=== PATIENT | male | born 1975 | race Caucasian/White ===

== ENCOUNTER 2019-02-25 17:56 | Emergency (ER) | payer SELFPAY ==
[~2019-02-25] VITALS: Ht 167.6 cm; Wt 77.5 kg
[2019-02-25 18:15] VITALS: Ht 167.6 cm; Wt 77.5 kg
[2019-02-26] MEDS ORDERED: CITA20TA8 GTB (07:10)
[2019-02-26] MEDS ORDERED: LEVE500S8 GTB (07:10)
[2019-02-26] MEDS ORDERED: ATOR10TA65 GTB (07:10)
[2019-02-26] MEDS ORDERED: COU3 GTB (07:10)
[2019-02-26] MEDS ORDERED: METO-407 GTB (07:10)
[2019-02-26] MEDS ORDERED: MIRT15TA5 GTB (07:10)
[2019-02-26] MEDS ORDERED: DEXA2TAB GTB (07:10)
[2019-02-26] MEDS ORDERED: ZOLP10TA GTB (07:10)
[2019-02-26] MEDS ORDERED: SENN-120 GTB (07:10)
== END 2019-02-25 20:29 | disposition left against medical advice (07) ==
LOC: E/R 17:56
DX: Z53.21 Procedure and treatment not carried out due to patient leaving prior to being seen by health care provider (principal)

== ENCOUNTER 2019-02-25 23:42 | Inpatient (IN) | payer OTHER ==
[~2019-02-25] VITALS: Ht 167.6 cm; Wt 77.1 kg
[~2019-02-25 23:42] MED LIST: ATOR10TA65 GTB; CITA20TA8 GTB; COU3 GTB; DEXA2TAB GTB; FAMO20TA18 PO; LEVE500S8 GTB; METO-407 GTB; MIRT15TA5 GTB; NAPR-683 PO; SENN-120 GTB; ZOLP10TA GTB
[2019-02-26] MEDS ORDERED: LACTATED RINGER'S 1,000 ML IV STA (01:10)
[2019-02-26] MEDS ORDERED: CEFTRIAXONE 1 GM/50 ML (PMX) 50 ML IVPB ONE (03:00)
--- NOTE | 2019-02-26 03:21 | ERD ---
ER Documentation Chief Complaint Chief Complaint BIB R903. BLOOD IN URINE, RED SPOTS ANTERIOR UPPER CHEST X 3 DAYS HPI 43-year-old man brought in by EMS for hematuria x1 day, patient has a history of stroke with resulting aphasia and uses warfarin daily. He denies back or flank pain, no fevers or chills, no chest pain or shortness of breath. Patient denies history of hematuria. ROS All systems reviewed and are negative except as per history of present illness. Allergies Allergies: Coded Allergies: No Known Drug Allergies (Verified Allergy, Unknown, 01/23/14) PMhx/Soc Hypertension, stroke anticoagulated with warfarin, aphasia History of Surgery: Yes (APPENDECTOMY, PNEUMECTOMY) Hx Neurological Disorder: Yes (STROKE (JUN 2018)) Hx Respiratory Disorders: No Hx Cardiac Disorders: Yes (valve replacement 2009) Hx Psychiatric Problems: No Hx Miscellaneous Medical Probl: No Hx Alcohol Use: No Hx Substance Use: No Hx Tobacco Use: No Smoking Status: Never smoker FmHx Family History: No diabetes Physical Exam Vitals Vital Signs Date Temp Pulse Resp B/P (MAP) Pulse Ox O2 O2 Flow FiO2 Time Delivery Rate 02/25/19 97.0 62 18 147/101 98 23:47 (116) Physical Exam Const: Well-developed well-nourished man, no apparent distress, afebrile Resp: Clear to auscultation bilaterally Cardio: Regular rate and rhythm, no murmurs Abd: Soft, non tender, non distended. No guarding, no masses Skin: Mild diffuse petechiae over the anterior upper chest, no pustules, no target lesions, no hematomas, no ecchymosis Ext: No cyanosis, or edema, calves symmetrical Neur: Patient is nonverbal, moving all extremities, no focal deficits or facial asymmetry Psych: Normal Mood and Affect Result Diagram: 02/26/19 0123 02/26/19 0123 Results 24 hrs Laboratory Tests Test 02/26/19 01:22 02/26/19 01:23 02/26/19 01:24 Prothrombin Time Pending Prothrombin Time Ratio 7.8 INR International Pending Normalized Ratio Activated Partial Thromboplast Pending Time White Blood Count 10.7 10^3/ul Red Blood Count 4.70 10^6/ul Hemoglobin 13.4 g/dl Hematocrit 41.9 % Mean Corpuscular Volume 89.1 fl Mean Corpuscular Hemoglobin 28.5 pg Mean Corpuscular 32.0 g/dl Hemoglobin Concent Red Cell Distribution Width 15.2 % Platelet Count 233 10^3/UL Mean Platelet Volume 9.8 fl Immature Granulocytes % 1.700 % Neutrophils % 72.7 % Lymphocytes % 15.3 % Monocytes % 9.7 % Eosinophils % 0.3 % Basophils % 0.3 % Nucleated Red Blood Cells % 0.0 /100WBC Immature Granulocytes # 0.180 10^3/ul Neutrophils # 7.8 10^3/ul Lymphocytes # 1.6 10^3/ul Monocytes # 1.0 10^3/ul Eosinophils # 0.0 10^3/ul Basophils # 0.0 10^3/ul Nucleated Red Blood Cells # 0.0 10^3/ul Sodium Level 137 mmol/L Potassium Level 4.2 mmol/L Chloride Level 102 mmol/L Carbon Dioxide Level 31 mmol/L Anion Gap 4 Blood Urea Nitrogen 23 mg/dl Creatinine 0.59 mg/dl Est Glomerular Filtrat > 60 mL/min Rate mL/min Glucose Level 93 mg/dl Calcium Level 8.5 mg/dl Total Bilirubin 0.6 mg/dl Direct Bilirubin 0.00 mg/dl Indirect Bilirubin 0.6 mg/dl Aspartate Amino 38 IU/L Transf (AST/SGOT) Alanine 86 IU/L Aminotransferase (ALT/SGPT) Alkaline Phosphatase 77 IU/L Total Protein 6.5 g/dl Albumin 3.3 g/dl Globulin 3.20 g/dl Albumin/Globulin Ratio 1.03 Lipase 118 U/L Urine Color SIGRID Urine Clarity CLOUDY Urine pH 7.0 Urine Specific [place] 1.019 Urine Ketones NEGATIVE mg/dL Urine Nitrite NEGATIVE mg/dL Urine Bilirubin NEGATIVE mg/dL Urine Urobilinogen NEGATIVE mg/dL Urine Leukocyte Esterase NEGATIVE Meghana/ul Urine Microscopic RBC > 182 /HPF Urine Microscopic WBC 48 /HPF Urine Hemoglobin 3+ mg/dL Urine Glucose NEGATIVE mg/dL Urine Total Protein 2+ mg/dl Current Medications Medications Dose Sig/Maria E Start Time Status Last (Trade) Ordered Route PRN Stop Time Admin Dose Reason Admin Lactated 1,000 ml @ Q1H STAT 02/26/19 DC 02/26/19 Ringer's 1,000 mls/hr IV 01:10 01:24 02/26/19 02:09 Ceftriaxone 50 ml @ ONCE ONCE 02/26/19 Sodium 100 mls/hr IVPB 03:00 02/26/19 03:29 Procedures/MDM IV line was established patient was placed on ekg monitor tech rhythm strip revealed a sinus rhythm at about 80 bpm with upright P and T waves. Patient was afebrile I administered LR IV x1, irrigating Chan catheter was placed and bladder was irrigated copiously, hematuria went from initial bright thick red blood to pink in color CBC was normal, electrolytes revealed dehydration, liver function tests were normal, coagulation profile is pending although I suspect supratherapeutic INR levels. Urinalysis revealed RBCs. I treated the patient with ceftriaxone 1 g IV Patient will be admitted to [facility] for continued medical management and IV antibiotics as well as consultation Departure Diagnosis: Primary Impression: Gross hematuria Additional Impression: Hemorrhagic cystitis Condition: VÍCTOR Guzman MD Feb 26, 2019 03:21
[2019-02-26] MEDS ORDERED: NACL 0.9% 3 ML SYG IV SCH (04:30)
[2019-02-26] MEDS ORDERED: ALBUTEROL/IPRATROPIUM (NEB) 3 ML AMP HHN PRN (04:30)
[2019-02-26] MEDS ORDERED: PHYTONADIONE 10 MG/ML INJ IM ONE (04:30)
[2019-02-26] MEDS ORDERED: ONDANSETRON 4 MG INJ IV PRN (04:30)
[2019-02-26] MEDS: DEXTROSE 5%-0.45% NACL 1,000 ML IV SCH ×2 (04:52→18:07)
[2019-02-26] MEDS: PANTOPRAZOLE 40 MG INJ IV SCH (05:24)
[2019-02-26 06:46] VITALS: BP 134/57; PULSE 61; RESP 18
[2019-02-26] MEDS: morphine 2 MG INJ IV PRN ×2 (06:50→14:12)
--- NOTE | 2019-02-26 07:18 | HP ---
Date/Time of Note Date/Time of Note DATE: 02/26/19 TIME: 07:12 Assessment/Plan VTE Prophylaxis SCD applied (from Nsg): Yes Pharmacological prophylaxis: NA/contraindicated Pharm contraindication: bleeding Lines/Catheters IV Catheter Type (from Nrsg): Saline Lock Urinary Cath still in place: No Assessment/Plan Assessment/Plan 1. Gross hematuria -Patient on Coumadin with INR > 10 -FFP and vitamin K -Bladder irrigation -Urology consult 2. Bleeding around G-tube x1 week -GI consult. Patient is actually scheduled to see Dr. Ro at [place] for EGD 3. CVA in June 2018 -Patient nonverbal. , follows commands "80% of the time" -Supportive care 4. Cardiac valve replacement in 2009, on Coumadin -See #1 and #2 -Cardiology consult. Patient's program management intern is Dr. Andrew 5. Dysphagia status post G-tube: Still functional, but see #2 Result Diagram: 02/26/19 0123 02/26/19 0123 Results 24hrs Laboratory Tests Test 02/26/19 01:22 02/26/19 01:23 02/26/19 01:24 Prothrombin Time 99.7 H Prothrombin Time Ratio 7.8 INR International Normalized Ratio > 10.00 *H Activated Partial Thromboplast Time 118.7 *H White Blood Count 10.7 Red Blood Count 4.70 Hemoglobin 13.4 L Hematocrit 41.9 L Mean Corpuscular Volume 89.1 Mean Corpuscular Hemoglobin 28.5 L Mean Corpuscular Hemoglobin Concent 32.0 Red Cell Distribution Width 15.2 H Platelet Count 233 Mean Platelet Volume 9.8 Immature Granulocytes % 1.700 H Neutrophils % 72.7 Lymphocytes % 15.3 Monocytes % 9.7 Eosinophils % 0.3 Basophils % 0.3 Nucleated Red Blood Cells % 0.0 Immature Granulocytes # 0.180 H Neutrophils # 7.8 H Lymphocytes # 1.6 Monocytes # 1.0 H Eosinophils # 0.0 Basophils # 0.0 Nucleated Red Blood Cells # 0.0 Sodium Level 137 Potassium Level 4.2 Chloride Level 102 Carbon Dioxide Level 31 Anion Gap 4 L Blood Urea Nitrogen 23 H Creatinine 0.59 L Est Glomerular Filtrat Rate mL/min > 60 Glucose Level 93 Calcium Level 8.5 Total Bilirubin 0.6 Direct Bilirubin 0.00 Indirect Bilirubin 0.6 Aspartate Amino Transf (AST/SGOT) 38 Alanine Aminotransferase (ALT/SGPT) 86 H Alkaline Phosphatase 77 Total Protein 6.5 Albumin 3.3 Globulin 3.20 Albumin/Globulin Ratio 1.03 Lipase 118 Urine Color SIGRID Urine Clarity CLOUDY A Urine pH 7.0 Urine Specific [place] 1.019 Urine Ketones NEGATIVE Urine Nitrite NEGATIVE Urine Bilirubin NEGATIVE Urine Urobilinogen NEGATIVE Urine Leukocyte Esterase NEGATIVE Urine Microscopic RBC > 182 H Urine Microscopic WBC 48 H Urine Hemoglobin 3+ H Urine Glucose NEGATIVE Urine Total Protein 2+ H HPI/ROS Admit Date/Time Admit Date/Time Feb 26, 2019 at 03:22 Hx of Present Illness Patient is a 43-year-old male who was nonverbal after stroke in June of last year, history of cardiac valve replacement in 2009 on Coumadin, dysphagia status post G-tube. Patient was brought to the ER for gross hematuria x1 day. is at the bedside who provided all the information. Patient also has been having a bleeding around his G-tube site as well as some greenish output from the G-tube. He is actually scheduled to see Dr. Ro at [place] for EGD. Patient has been on Coumadin since 2009 and his gross hematuria started yesterday. When he presented to the ER, he is found to have an INR > 10. Bladder irrigation has been started. Dr. Andrew he is his program management intern. PMH/Family/Social Past Medical History Medical History: other (see hpi) Medications Current Medications Dextrose/Sodium Chloride 1,000 ml @ 100 mls/hr Q10H IV Last administered on 02/26/19at 04:52; Admin Dose 100 MLS/HR; Start 02/26/19 at 04:19 IV Flush (NS 3 ml) 3 ml PER PROTOCOL IV ; Start 02/26/19 at 04:30 Ondansetron HCl (Zofran Inj) 4 mg Q6H PRN IV NAUSEA/VOMITING; Start 02/26/19 at 04:30 Morphine Sulfate (morphine) 2 mg Q4H PRN IV .SEVERE PAIN 7-10 Last administered on 02/26/19at 06:50; Admin Dose 2 MG; Start 02/26/19 at 04:30 Pantoprazole (Protonix Iv) 40 mg DAILY@06 IV Last administered on 02/26/19at 05:24; Admin Dose 40 MG; Start 02/26/19 at 06:00 Albuterol/ Ipratropium (Duoneb) 3 ml Q2H RESP THERAPY PRN HHN SHORTNESS OF BREATH; Start 02/26/19 at 04:30 Coded Allergies: No Known Drug Allergies (Verified Allergy, Unknown, 01/23/14) Past Surgical History Past Surgical Hx: other (see hpi) Family History Significant Family History: no pertinent family hx Social History Alcohol Use: none Smoking Status: Never smoker Drug Use: none Exam/Review of Systems Vital Signs Vitals Vital Signs Date Temp Pulse Resp B/P (MAP) Pulse Ox O2 O2 Flow FiO2 Time Delivery Rate 02/26/19 54 18 124/77 100 Room Air 05:39 (93) 02/25/19 97.0 23:47 Exam Constitutional: other (no verbal) Head: normocephalic, atraumatic Eyes: PERRL Respiratory: clear to auscultation Cardiovascular: regular rate and rhythm, nl pulses Gastrointestinal: soft, other (gtube) Genitourinary - Male: other (andersen with bloody output) Neurological: other (no verbal) TOI ANGELA MD Feb 26, 2019 07:18
[2019-02-26 07:40] VITALS: BP 117/75; PULSE 60; RESP 16
--- NOTE | 2019-02-26 15:20 | CONS ---
Assessment/Plan Assessment/Plan Hospital Course (Demo Recall) 43-year-old male was brought to the emergency room because of gross hematuria. That started on 02/25/2019. The patient is known to have had heart valve replacement and has been on Coumadin. On admission to the ER his INR was over 10. He also was bleeding around the G-tube. The patient had a stroke in June 2018 and since then he has been a phasic. He does also have dysphagia and has a G-tube. There is no prior history of gross hematuria. No history of kidney stones. And he never had an indwelling Chan catheter. With the continuous bladder irrigation the return is clear. The CT scan showed right periureteral stranding. The patient may be bleeding from the right kidney and blood clots may be causing obstruction in his right ureter. The bleeding is most likely related to his elevated INR since the CT scan did not show any stone or tumor in the kidney. Plan is to continue the bladder irrigation try to hydrate him well and correct the INR to a therapeutic level. Consultation Date/Type/Reason Admit Date/Time Feb 26, 2019 at 03:22 Date of Consultation: Feb 26, 2019 Type of Consult Urology Reason for Consultation Gross hematuria Requesting Provider: MARISELA URBAN Date/Time of Note DATE: 02/26/19 TIME: 15:08 Hx of Present Illness 43-year-old male was brought to the emergency room because of gross hematuria. That started on 02/25/2019. The patient is known to have had heart valve replacement and has been on Coumadin. On admission to the ER his INR was over 10. He also was bleeding around the G-tube. The patient had a stroke in June 2018 and since then he has been a phasic. He does also have dysphagia and has a G-tube. There is no prior history of gross hematuria. No history of kidney stones. And he never had an indwelling Chan catheter. Subjective hx not possible: other (Patient is aphasic but he does understand and his does answer all the questions) Constitutional: no complaints Eyes: no complaints ENT: no complaints Respiratory: no complaints; No shortness of breath Cardiovascular: no complaints; No chest pain Gastrointestinal: no complaints Genitourinary: hematuria Musculoskeletal: no complaints Skin: no complaints Neurologic: other (History of stroke, patient is aphasic) Endocrine: no complaints Lymphatic: no complaints Psychological: no complaints Immunologic: no complaints Past Medical History Medical History: high cholesterol, hypertension, other (History of stroke) Home Meds Reported Medications Atorvastatin Calcium (Atorvastatin Calcium) 10 Mg Tablet, 20 MG GTB DAILY, #30 TAB 02/26/19 Citalopram Hydrobromide* (Citalopram Hydrobromide*) 20 Mg Tablet, 20 MG GTB DAILY, #30 TAB 02/26/19 Sennosides* (Senna Lax*) 8.6 Mg Tablet, 1 TAB GTB DAILY PRN for constipation, TAB 02/26/19 Mirtazapine* (Mirtazapine*) 15 Mg Tablet, 15 MG GTB HS, TAB 02/26/19 Dexamethasone* (Dexamethasone*) 2 Mg Tablet, 2 MG GTB QHS, TAB 02/26/19 Zolpidem Tartrate* (Ambien*) 10 Mg Tablet, 10 MG GTB QHS PRN for INSOMNIA, TAB 02/26/19 Warfarin Sod (Coumadin) 3 Mg Tab, 4 MG GTB DAILY, TAB 02/26/19 Metoprolol Tartrate* (Lopressor*) 100 Mg Tablet, 100 MG GTB DAILY, #60 TAB 02/26/19 Levetiracetam* (Levetiracetam*) 500 Mg/5 Ml Solution, 1000 MG GTB BID, ML 02/26/19 Medications Current Medications Dextrose/Sodium Chloride 1,000 ml @ 100 mls/hr Q10H IV Last administered on 02/26/19at 04:52; Admin Dose 100 MLS/HR; Start 02/26/19 at 04:19 IV Flush (NS 3 ml) 3 ml PER PROTOCOL IV ; Start 02/26/19 at 04:30 Ondansetron HCl (Zofran Inj) 4 mg Q6H PRN IV NAUSEA/VOMITING; Start 02/26/19 at 04:30 Morphine Sulfate (morphine) 2 mg Q4H PRN IV .SEVERE PAIN 7-10 Last administered on 02/26/19at 14:12; Admin Dose 2 MG; Start 02/26/19 at 04:30 Pantoprazole (Protonix Iv) 40 mg DAILY@06 IV Last administered on 02/26/19at 05:24; Admin Dose 40 MG; Start 02/26/19 at 06:00 Albuterol/ Ipratropium (Duoneb) 3 ml Q2H RESP THERAPY PRN HHN SHORTNESS OF BREATH; Start 02/26/19 at 04:30 Allergies: Coded Allergies: No Known Drug Allergies (Verified Allergy, Unknown, 01/23/14) Past Surgical History Past Surgical Hx: other (Heart valve replacement) Social History Alcohol Use: none Smoking Status: Never smoker Exam/Review of Systems Exam Vitals Vital Signs Date Temp Pulse Resp B/P (MAP) Pulse Ox O2 O2 Flow FiO2 Time Delivery Rate 02/26/19 98.6 60 16 117/75 98 07:40 (89) 02/26/19 Room Air 05:39 Intake and Output 02/25/19 02/25/19 02/26/19 1515:00 23:00 07:00 OutputOutput Total 400 ml BalanceBalance -400 ml Constitutional: alert, non-verbal Psych: no complaints Head: normocephalic Eyes: nl conjunctiva ENMT: nl external ears & nose Neck: supple Respiratory: normal air movement; No wheezing Cardiovascular: No jugular venous distention (JVD) Gastrointestinal: soft Genitourinary - Male: nl penis, nl scrotum, other (Has an indwelling three-way Chan catheter with continuous bladder irrigation) Musculoskeletal: nl extremities to inspection Extremities: No calf tenderness Neurological: nl mental status Skin: nl turgor Lymph: nl lymph nodes Results Result Diagram: 02/26/19 0123 02/26/19 0123 Results 24hrs Laboratory Tests Test 02/26/19 01:22 02/26/19 01:23 02/26/19 01:24 02/26/19 09:57 Prothrombin Time 99.7 H 20.3 #H Prothrombin Time 7.8 1.6 Ratio INR International > 10.00 *H 1.73 Normalized Ratio Activated 118.7 *H 35.8 H Partial Thromboplast Time White Blood Count 10.7 Red Blood Count 4.70 Hemoglobin 13.4 L Hematocrit 41.9 L Mean Corpuscular 89.1 Volume Mean Corpuscular 28.5 L Hemoglobin Mean Corpuscular 32.0 Hemoglobin Concent Red Cell 15.2 H Distribution Width Platelet Count 233 Mean Platelet Volume 9.8 Immature 1.700 H Granulocytes % Neutrophils % 72.7 Lymphocytes % 15.3 Monocytes % 9.7 Eosinophils % 0.3 Basophils % 0.3 Nucleated Red Blood 0.0 Cells % Immature 0.180 H Granulocytes # Neutrophils # 7.8 H Lymphocytes # 1.6 Monocytes # 1.0 H Eosinophils # 0.0 Basophils # 0.0 Nucleated Red Blood 0.0 Cells # Sodium Level 137 Potassium Level 4.2 Chloride Level 102 Carbon Dioxide Level 31 Anion Gap 4 L Blood Urea Nitrogen 23 H Creatinine 0.59 L Est Glomerular > 60 Filtrat Rate mL/min Glucose Level 93 Calcium Level 8.5 Total Bilirubin 0.6 Direct Bilirubin 0.00 Indirect Bilirubin 0.6 Aspartate Amino 38 Transf (AST/SGOT) Alanine 86 H Aminotransferase (AL T/SGPT) Alkaline Phosphatase 77 Total Protein 6.5 Albumin 3.3 Globulin 3.20 Albumin/Globulin 1.03 Ratio Lipase 118 Urine Color SIGRID Urine Clarity CLOUDY A Urine pH 7.0 Urine Specific 1.019 [place] Urine Ketones NEGATIVE Urine Nitrite NEGATIVE Urine Bilirubin NEGATIVE Urine Urobilinogen NEGATIVE Urine Leukocyte NEGATIVE Esterase Urine Microscopic > 182 H RBC Urine Microscopic 48 H WBC Urine Hemoglobin 3+ H Urine Glucose NEGATIVE Urine Total Protein 2+ H Imaging Imaging CT scan of the abdomen and pelvis: 1. Right periureteral stranding without hydronephrosis or appreciated calculus. This could reflect recent passage of a calculus in the appropriate setting. Other inflammatory or infectious process cannot be absolutely excluded. Consider further urologic evaluation as warranted. 2. Hepatomegaly. Medications Medication Current Medications Dextrose/Sodium Chloride 1,000 ml @ 100 mls/hr Q10H IV Last administered on 02/26/19at 04:52; Admin Dose 100 MLS/HR; Start 02/26/19 at 04:19 IV Flush (NS 3 ml) 3 ml PER PROTOCOL IV ; Start 02/26/19 at 04:30 Ondansetron HCl (Zofran Inj) 4 mg Q6H PRN IV NAUSEA/VOMITING; Start 02/26/19 at 04:30 Morphine Sulfate (morphine) 2 mg Q4H PRN IV .SEVERE PAIN 7-10 Last administered on 02/26/19at 14:12; Admin Dose 2 MG; Start 02/26/19 at 04:30 Pantoprazole (Protonix Iv) 40 mg DAILY@06 IV Last administered on 02/26/19at 05:24; Admin Dose 40 MG; Start 02/26/19 at 06:00 Albuterol/ Ipratropium (Duoneb) 3 ml Q2H RESP THERAPY PRN HHN SHORTNESS OF BREATH; Start 02/26/19 at 04:30 SEDA GLOVER MD Feb 26, 2019 15:19
--- NOTE | 2019-02-26 15:28 | CONS ---
Assessment/Plan Assessment/Plan Hospital Course (Demo Recall) Summary Assessment and Plan: Assessment: Bleeding and subjective greenish discharge at gastrostomy tube site Hematuria H/o CVA in June 2018 -dysphasia and dysphagia requiring G-tube Cardiac valve replacement in 2009 -on Coumadin Coagulopathy - INR on admission >10.0 Plan: S/p FFP transfusion - INR now 1.73 Monitor labs Will consider g-tube exchange with EGD - will need cardiac clearance prior to procedure No evidence of infection will start TF FiberSource 30ml/hr to goal rte 50ml/hr Patient seen in collaboration with Dr. Ro CC: MYRTLE RO MD ; Consultation Date/Type/Reason Admit Date/Time Feb 26, 2019 at 03:22 Date of Consultation: Feb 26, 2019 Type of Consult GI Reason for Consultation Bleeding at gastrostomy tube site - reported greenish discharge Date/Time of Note DATE: 02/26/19 TIME: 15:08 Hx of Present Illness This is 43-year-old male with past medical history of valve replacement 2009 on Coumadin, CVA in June of last year leading to dysphasia and dysphagia status post gastrostomy tube placement. Who presented to the hospital with complaints area bleeding around gastrostomy tube site as well as greenish discharge. Patient was evaluated in our office with plan for upper endoscopy scheduled for April. On admission patient's INR was over 10 he is status post 2 units of FFP with repeat INR of 1.73 there is mild normocytic anemia with hemoglobin 13.4 normal WBCs patient is afebrile with heart rate noted to be in the 50s to 60s and stable blood pressure. A CT abdomen pelvis without contrast was ordered noting right periureteral stranding without hydronephrosis or appreciated calculus. This could reflect recent passage of a calculus in the proper setting or other inflammatory or infectious process cannot be actually excluded, hepatomegaly is noted at time evaluation ostomy site appears without infection there is no signs of drainage or redness there is no further episodes of bleeding. There is some related tissue around ostomy site given severe coagulopathy could be reason for bleeding. At time of ealuation ostomy site in without evidence of infection, s/p gastric lavage without evidence of purulent fluid or blood. Subjective hx not possible: pt non-verbal Past Medical History Home Meds Reported Medications Atorvastatin Calcium (Atorvastatin Calcium) 10 Mg Tablet, 20 MG GTB DAILY, #30 TAB 02/26/19 Citalopram Hydrobromide* (Citalopram Hydrobromide*) 20 Mg Tablet, 20 MG GTB DAILY, #30 TAB 02/26/19 Sennosides* (Senna Lax*) 8.6 Mg Tablet, 1 TAB GTB DAILY PRN for constipation, TAB 02/26/19 Mirtazapine* (Mirtazapine*) 15 Mg Tablet, 15 MG GTB HS, TAB 02/26/19 Dexamethasone* (Dexamethasone*) 2 Mg Tablet, 2 MG GTB QHS, TAB 02/26/19 Zolpidem Tartrate* (Ambien*) 10 Mg Tablet, 10 MG GTB QHS PRN for INSOMNIA, TAB 02/26/19 Warfarin Sod (Coumadin) 3 Mg Tab, 4 MG GTB DAILY, TAB 02/26/19 Metoprolol Tartrate* (Lopressor*) 100 Mg Tablet, 100 MG GTB DAILY, #60 TAB 02/26/19 Levetiracetam* (Levetiracetam*) 500 Mg/5 Ml Solution, 1000 MG GTB BID, ML 02/26/19 Medications Current Medications Dextrose/Sodium Chloride 1,000 ml @ 100 mls/hr Q10H IV Last administered on 02/26/19at 04:52; Admin Dose 100 MLS/HR; Start 02/26/19 at 04:19 IV Flush (NS 3 ml) 3 ml PER PROTOCOL IV ; Start 02/26/19 at 04:30 Ondansetron HCl (Zofran Inj) 4 mg Q6H PRN IV NAUSEA/VOMITING; Start 02/26/19 at 04:30 Morphine Sulfate (morphine) 2 mg Q4H PRN IV .SEVERE PAIN 7-10 Last administered on 02/26/19at 14:12; Admin Dose 2 MG; Start 02/26/19 at 04:30 Pantoprazole (Protonix Iv) 40 mg DAILY@06 IV Last administered on 02/26/19at 05:24; Admin Dose 40 MG; Start 02/26/19 at 06:00 Albuterol/ Ipratropium (Duoneb) 3 ml Q2H RESP THERAPY PRN HHN SHORTNESS OF BREATH; Start 02/26/19 at 04:30 Allergies: Coded Allergies: No Known Drug Allergies (Verified Allergy, Unknown, 6/17/14) Social History Smoking Status: Never smoker Exam/Review of Systems Exam Vitals Vital Signs Date Temp Pulse Resp B/P (MAP) Pulse Ox O2 O2 Flow FiO2 Time Delivery Rate 02/26/19 98.6 60 16 117/75 98 07:40 (89) 02/26/19 Room Air 05:39 Intake and Output 02/25/19 02/25/19 02/26/19 1515:00 23:00 07:00 OutputOutput Total 400 ml BalanceBalance -400 ml Exam PHYSICAL EXAMINATION: GENERAL: Alert, aphasic, in no acute distress SKIN: No lesions HEAD: Normocephalic, atraumatic, no tenderness. EYES: Pupils equal reactive to light and accommodation, no discharge. EARS/NOSE AND THROAT: Ears normal, nose normal NECK: Supple, no masses CHEST: Inspection within normal limits. CARDIOVASCULAR: Heart: Regular rate and rhythm RESPIRATORY: Lungs clear to auscultation GASTROINTESTINAL AND LIVER: Abdomen: Soft, non tenderness, g-tube, non- distended, no hernias, no masses, Hepatomegaly,, no rebound tenderness, normoactive bowel sounds. Rectal: Deferred. EXTREMITIES: No cyanosis, clubbing or edema. Results Result Diagram: 02/26/19 0123 02/26/19 0123 Results 24hrs Laboratory Tests Test 02/26/19 01:22 02/26/19 01:23 02/26/19 01:24 02/26/19 09:57 Prothrombin Time 99.7 H 20.3 #H Prothrombin Time 7.8 1.6 Ratio INR International > 10.00 *H 1.73 Normalized Ratio Activated 118.7 *H 35.8 H Partial Thromboplast Time White Blood Count 10.7 Red Blood Count 4.70 Hemoglobin 13.4 L Hematocrit 41.9 L Mean Corpuscular 89.1 Volume Mean Corpuscular 28.5 L Hemoglobin Mean Corpuscular 32.0 Hemoglobin Concent Red Cell 15.2 H Distribution Width Platelet Count 233 Mean Platelet Volume 9.8 Immature 1.700 H Granulocytes % Neutrophils % 72.7 Lymphocytes % 15.3 Monocytes % 9.7 Eosinophils % 0.3 Basophils % 0.3 Nucleated Red Blood 0.0 Cells % Immature 0.180 H Granulocytes # Neutrophils # 7.8 H Lymphocytes # 1.6 Monocytes # 1.0 H Eosinophils # 0.0 Basophils # 0.0 Nucleated Red Blood 0.0 Cells # Sodium Level 137 Potassium Level 4.2 Chloride Level 102 Carbon Dioxide Level 31 Anion Gap 4 L Blood Urea Nitrogen 23 H Creatinine 0.59 L Est Glomerular > 60 Filtrat Rate mL/min Glucose Level 93 Calcium Level 8.5 Total Bilirubin 0.6 Direct Bilirubin 0.00 Indirect Bilirubin 0.6 Aspartate Amino 38 Transf (AST/SGOT) Alanine 86 H Aminotransferase (AL T/SGPT) Alkaline Phosphatase 77 Total Protein 6.5 Albumin 3.3 Globulin 3.20 Albumin/Globulin 1.03 Ratio Lipase 118 Urine Color SIGRID Urine Clarity CLOUDY A Urine pH 7.0 Urine Specific 1.019 [place] Urine Ketones NEGATIVE Urine Nitrite NEGATIVE Urine Bilirubin NEGATIVE Urine Urobilinogen NEGATIVE Urine Leukocyte NEGATIVE Esterase Urine Microscopic > 182 H RBC Urine Microscopic 48 H WBC Urine Hemoglobin 3+ H Urine Glucose NEGATIVE Urine Total Protein 2+ H Medications Medication Current Medications Dextrose/Sodium Chloride 1,000 ml @ 100 mls/hr Q10H IV Last administered on 02/26/19at 04:52; Admin Dose 100 MLS/HR; Start 02/26/19 at 04:19 IV Flush (NS 3 ml) 3 ml PER PROTOCOL IV ; Start 02/26/19 at 04:30 Ondansetron HCl (Zofran Inj) 4 mg Q6H PRN IV NAUSEA/VOMITING; Start 02/26/19 at 04:30 Morphine Sulfate (morphine) 2 mg Q4H PRN IV .SEVERE PAIN 7-10 Last administered on 02/26/19at 14:12; Admin Dose 2 MG; Start 02/26/19 at 04:30 Pantoprazole (Protonix Iv) 40 mg DAILY@06 IV Last administered on 02/26/19at 05:24; Admin Dose 40 MG; Start 02/26/19 at 06:00 Albuterol/ Ipratropium (Duoneb) 3 ml Q2H RESP THERAPY PRN HHN SHORTNESS OF BREATH; Start 02/26/19 at 04:30 DEANDRE PHILLIPS Feb 26, 2019 15:19
--- NOTE | 2019-02-26 17:59 | PN ---
Date/Time of Note Date/Time of Note DATE: 02/26/19 TIME: 17:46 Assessment/Plan VTE Prophylaxis Risk score (from Ns)>0 risk: 1 SCD applied (from Ns): Yes Pharmacological prophylaxis: warfarin tx Lines/Catheters [facility] [place] Assessment/Plan Hospital Course 1. Gross hematuria likely secondary to supratherapeutic INR -Patient on Coumadin with INR > 10 -Status post FFP and vitamin K, INR now< 2 -Continue bladder irrigation -Urology consult appreciated, etiology believed to be secondary to elevated INR, recommendation is to continue bladder irrigation 2. Bleeding around G-tube x1 week -GI consult appreciated, Patient is actually scheduled to see Dr. 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 Andrew ([facility] is covering) 3. CVA in June 2018 -Etiology appears to be secondary to history of cardiac valve repair and noncompliance with Coumadin -Patient nonverbal. , follows commands "80% of the time" -Supportive care 4. Cardiac valve replacement in 2009, on Coumadin -Cardiology consult obtained -Resume Coumadin starting tomorrow morning due to risk of further embolic event 5. History of seizures -Keppra IV 6. Headache -Toradol IV Prophylaxis: SCDs DC planning: Continue bladder irrigation, follow-up on urology, GI and cardiology recommendations Result Diagram: 02/26/19 0123 02/26/19 0123 Results 24hrs Laboratory Tests Test 02/26/19 01:22 02/26/19 01:23 02/26/19 01:24 02/26/19 09:57 Prothrombin Time 99.7 H 20.3 #H Prothrombin Time 7.8 1.6 Ratio INR International > 10.00 *H 1.73 Normalized Ratio Activated 118.7 *H 35.8 H Partial Thromboplast Time White Blood Count 10.7 Red Blood Count 4.70 Hemoglobin 13.4 L Hematocrit 41.9 L Mean Corpuscular 89.1 Volume Mean Corpuscular 28.5 L Hemoglobin Mean Corpuscular 32.0 Hemoglobin Concent Red Cell 15.2 H Distribution Width Platelet Count 233 Mean Platelet Volume 9.8 Immature 1.700 H Granulocytes % Neutrophils % 72.7 Lymphocytes % 15.3 Monocytes % 9.7 Eosinophils % 0.3 Basophils % 0.3 Nucleated Red Blood 0.0 Cells % Immature 0.180 H Granulocytes # Neutrophils # 7.8 H Lymphocytes # 1.6 Monocytes # 1.0 H Eosinophils # 0.0 Basophils # 0.0 Nucleated Red Blood 0.0 Cells # Sodium Level 137 Potassium Level 4.2 Chloride Level 102 Carbon Dioxide Level 31 Anion Gap 4 L Blood Urea Nitrogen 23 H Creatinine 0.59 L Est Glomerular > 60 Filtrat Rate mL/min Glucose Level 93 Calcium Level 8.5 Total Bilirubin 0.6 Direct Bilirubin 0.00 Indirect Bilirubin 0.6 Aspartate Amino 38 Transf (AST/SGOT) Alanine 86 H Aminotransferase (AL T/SGPT) Alkaline Phosphatase 77 Total Protein 6.5 Albumin 3.3 Globulin 3.20 Albumin/Globulin 1.03 Ratio Lipase 118 Urine Color SIGRID Urine Clarity CLOUDY A Urine pH 7.0 Urine Specific 1.019 [place] Urine Ketones NEGATIVE Urine Nitrite NEGATIVE Urine Bilirubin NEGATIVE Urine Urobilinogen NEGATIVE Urine Leukocyte NEGATIVE Esterase Urine Microscopic > 182 H RBC Urine Microscopic 48 H WBC Urine Hemoglobin 3+ H Urine Glucose NEGATIVE Urine Total Protein 2+ H Subjective 24 Hr Interval Summary Subjective hx not possible: pt non-verbal Exam/Review of Systems Exam Vitals Vital Signs Date Temp Pulse Resp B/P (MAP) Pulse Ox O2 O2 Flow FiO2 Time Delivery Rate 02/26/19 98.6 60 16 117/75 98 07:40 (89) 02/26/19 Room Air 05:39 Intake and Output 02/25/19 02/25/19 02/26/19 1515:00 23:00 07:00 OutputOutput Total 400 ml BalanceBalance -400 ml Constitutional: non-verbal Respiratory: clear to auscultation Cardiovascular: regular rate and rhythm Gastrointestinal: soft; No distended Musculoskeletal: nl extremities to inspection Results Results 24hrs Laboratory Tests Test 02/26/19 01:22 02/26/19 01:23 02/26/19 01:24 02/26/19 09:57 Prothrombin Time 99.7 H 20.3 #H Prothrombin Time 7.8 1.6 Ratio INR International > 10.00 *H 1.73 Normalized Ratio Activated 118.7 *H 35.8 H Partial Thromboplast Time White Blood Count 10.7 Red Blood Count 4.70 Hemoglobin 13.4 L Hematocrit 41.9 L Mean Corpuscular 89.1 Volume Mean Corpuscular 28.5 L Hemoglobin Mean Corpuscular 32.0 Hemoglobin Concent Red Cell 15.2 H Distribution Width Platelet Count 233 Mean Platelet Volume 9.8 Immature 1.700 H Granulocytes % Neutrophils % 72.7 Lymphocytes % 15.3 Monocytes % 9.7 Eosinophils % 0.3 Basophils % 0.3 Nucleated Red Blood 0.0 Cells % Immature 0.180 H Granulocytes # Neutrophils # 7.8 H Lymphocytes # 1.6 Monocytes # 1.0 H Eosinophils # 0.0 Basophils # 0.0 Nucleated Red Blood 0.0 Cells # Sodium Level 137 Potassium Level 4.2 Chloride Level 102 Carbon Dioxide Level 31 Anion Gap 4 L Blood Urea Nitrogen 23 H Creatinine 0.59 L Est Glomerular > 60 Filtrat Rate mL/min Glucose Level 93 Calcium Level 8.5 Total Bilirubin 0.6 Direct Bilirubin 0.00 Indirect Bilirubin 0.6 Aspartate Amino 38 Transf (AST/SGOT) Alanine 86 H Aminotransferase (AL T/SGPT) Alkaline Phosphatase 77 Total Protein 6.5 Albumin 3.3 Globulin 3.20 Albumin/Globulin 1.03 Ratio Lipase 118 Urine Color SIGRID Urine Clarity CLOUDY A Urine pH 7.0 Urine Specific 1.019 [place] Urine Ketones NEGATIVE Urine Nitrite NEGATIVE Urine Bilirubin NEGATIVE Urine Urobilinogen NEGATIVE Urine Leukocyte NEGATIVE Esterase Urine Microscopic > 182 H RBC Urine Microscopic 48 H WBC Urine Hemoglobin 3+ H Urine Glucose NEGATIVE Urine Total Protein 2+ H Medications Medication Current Medications Dextrose/Sodium Chloride 1,000 ml @ 100 mls/hr Q10H IV Last administered on 02/26/19at 04:52; Admin Dose 100 MLS/HR; Start 02/26/19 at 04:19 IV Flush (NS 3 ml) 3 ml PER PROTOCOL IV ; Start 02/26/19 at 04:30 Ondansetron HCl (Zofran Inj) 4 mg Q6H PRN IV NAUSEA/VOMITING; Start 02/26/19 at 04:30 Morphine Sulfate (morphine) 2 mg Q4H PRN IV .SEVERE PAIN 7-10 Last administered on 02/26/19at 14:12; Admin Dose 2 MG; Start 02/26/19 at 04:30 Pantoprazole (Protonix Iv) 40 mg DAILY@06 IV Last administered on 02/26/19at 05:24; Admin Dose 40 MG; Start 02/26/19 at 06:00 Albuterol/ Ipratropium (Duoneb) 3 ml Q2H RESP THERAPY PRN HHN SHORTNESS OF BREATH; Start 02/26/19 at 04:30 Levetiracetam 100 ml @ 400 mls/hr Q12 IVPB ; Start 02/26/19 at 21:00 MARISELA URBAN Feb 26, 2019 17:57
[2019-02-26] MEDS: KETOROLAC 15 MG INJ IV PRN ×2 (18:06→22:03)
[2019-02-26] MEDS: WARFARIN 2 MG TAB GTB SCH (18:43)
[2019-02-26 18:58] VITALS: BP 102/59; PULSE 69; RESP 18
[2019-02-26] MEDS ORDERED: HYDROCODONE/APAP (5/325) TAB PO PRN (20:00)
[2019-02-26] MEDS ORDERED: SUMATRIPTAN 6 MG/0.5 ML INJ SC ONE (20:00)
[2019-02-26] MEDS: LEVETIRACETAM 1000 MG (PMX) 100 ML IVPB SCH (20:14)
[2019-02-26] MEDS ORDERED: HYDROmorphONE 1 MG/ML SYG IV ONE (23:30)
[2019-02-26] MEDS ORDERED: MELATONIN 5 MG TABLET GTB PRN (23:30)
[2019-02-27] MEDS: DEXTROSE 5%-0.45% NACL 1,000 ML IV SCH ×3 (00:19→15:42)
[2019-02-27] MEDS ORDERED: HYDROmorphONE 1 MG/ML SYG IV PRN (01:00)
[2019-02-27] MEDS: morphine 2 MG INJ IV PRN ×3 (04:42→17:15)
[2019-02-27] MEDS: PANTOPRAZOLE 40 MG INJ IV SCH (05:16)
[2019-02-27 07:31] VITALS: BP 119/58; PULSE 72; RESP 19
[2019-02-27] MEDS: KETOROLAC 15 MG INJ IV PRN ×2 (08:08→18:52)
[2019-02-27] MEDS: LEVETIRACETAM 1000 MG (PMX) 100 ML IVPB SCH ×2 (08:08→21:42)
--- NOTE | 2019-02-27 08:37 | CONS ---
Consult Date/Type/Reason Admit Date/Time Feb 26, 2019 at 03:22 Initial Consult Date 02/26/19 Type of Consultation: Urology Reason for Consultation Gross hematuria Requesting Provider: MARISELA URBAN Date/Time of Note DATE: 02/27/19 TIME: 08:35 Subjective Patient is sleeping Objective Vitals Vital Signs Date Temp Pulse Resp B/P (MAP) Pulse Ox O2 O2 Flow FiO2 Time Delivery Rate 02/27/19 97.2 72 19 119/58 98 07:31 (78) 02/26/19 Room Air 18:58 Intake and Output 02/26/19 02/26/19 02/27/19 1515:00 23:00 07:00 IntakeIntake Total 1100 ml 966 ml OutputOutput Total 4550 ml 4600 ml BalanceBalance -3450 ml -3634 ml Exam Chan catheter is draining clear urine with the irrigation at the very slow rate. Results/Medications Result Diagram: 02/27/19 0424 02/27/19 0424 Results 24 hrs Laboratory Tests Test 02/26/19 09:57 02/27/19 04:24 Prothrombin Time 20.3 #H 13.8 # Prothrombin Time Ratio 1.6 1.1 INR International Normalized Ratio 1.73 1.05 Activated Partial Thromboplast Time 35.8 H White Blood Count 7.8 # Red Blood Count 4.68 L Hemoglobin 13.4 L Hematocrit 41.9 L Mean Corpuscular Volume 89.5 Mean Corpuscular Hemoglobin 28.6 L Mean Corpuscular Hemoglobin Concent 32.0 Red Cell Distribution Width 15.3 H Platelet Count 210 Mean Platelet Volume 9.9 Immature Granulocytes % 1.000 H Neutrophils % 67.4 Lymphocytes % 21.0 Monocytes % 8.8 Eosinophils % 1.4 Basophils % 0.4 Nucleated Red Blood Cells % 0.0 Immature Granulocytes # 0.080 H Neutrophils # 5.2 Lymphocytes # 1.6 Monocytes # 0.7 Eosinophils # 0.1 Basophils # 0.0 Nucleated Red Blood Cells # 0.0 Sodium Level 137 Potassium Level 3.4 L Chloride Level 104 Carbon Dioxide Level 27 Anion Gap 6 Blood Urea Nitrogen 15 Creatinine 0.55 L Est Glomerular Filtrat Rate mL/min > 60 Glucose Level 95 Calcium Level 8.2 L Phosphorus Level 4.5 Magnesium Level 2.1 Total Bilirubin 0.8 Direct Bilirubin 0.00 Indirect Bilirubin 0.8 Aspartate Amino Transf (AST/SGOT) 33 Alanine Aminotransferase (ALT/SGPT) 65 Alkaline Phosphatase 90 Total Protein 6.1 Albumin 3.3 Globulin 2.80 Albumin/Globulin Ratio 1.17 Home Meds Reported Medications Atorvastatin Calcium (Atorvastatin Calcium) 10 Mg Tablet, 20 MG GTB DAILY, #30 TAB 02/26/19 Citalopram Hydrobromide* (Citalopram Hydrobromide*) 20 Mg Tablet, 20 MG GTB D AILY, #30 TAB 02/26/19 Sennosides* (Senna Lax*) 8.6 Mg Tablet, 1 TAB GTB DAILY PRN for constipation, TAB 02/26/19 Mirtazapine* (Mirtazapine*) 15 Mg Tablet, 15 MG GTB HS, TAB 02/26/19 Dexamethasone* (Dexamethasone*) 2 Mg Tablet, 2 MG GTB QHS, TAB 02/26/19 Zolpidem Tartrate* (Ambien*) 10 Mg Tablet, 10 MG GTB QHS PRN for INSOMNIA, TAB 02/26/19 Warfarin Sod (Coumadin) 3 Mg Tab, 4 MG GTB DAILY, TAB 02/26/19 Metoprolol Tartrate* (Lopressor*) 100 Mg Tablet, 100 MG GTB DAILY, #60 TAB 02/26/19 Levetiracetam* (Levetiracetam*) 500 Mg/5 Ml Solution, 1000 MG GTB BID, ML 02/26/19 Medications Current Medications Dextrose/Sodium Chloride 1,000 ml @ 100 mls/hr Q10H IV Last administered on 02/27/19at 05:16; Admin Dose 100 MLS/HR; Start 02/26/19 at 04:19 IV Flush (NS 3 ml) 3 ml PER PROTOCOL IV ; Start 02/26/19 at 04:30 Ondansetron HCl (Zofran Inj) 4 mg Q6H PRN IV NAUSEA/VOMITING; Start 02/26/19 at 04:30 Morphine Sulfate (morphine) 2 mg Q4H PRN IV .SEVERE PAIN 7-10 Last administered on 02/27/19at 04:42; Admin Dose 2 MG; Start 02/26/19 at 04:30 Pantoprazole (Protonix Iv) 40 mg DAILY@06 IV Last administered on 02/27/19at 05:16; Admin Dose 40 MG; Start 02/26/19 at 06:00 Albuterol/ Ipratropium (Duoneb) 3 ml Q2H RESP THERAPY PRN HHN SHORTNESS OF BREATH; Start 02/26/19 at 04:30 Levetiracetam 100 ml @ 400 mls/hr Q12 IVPB Last administered on 02/27/19at 08:08; Admin Dose 400 MLS/HR; Start 02/26/19 at 21:00 Ketorolac Tromethamine (Toradol) 15 mg Q6H PRN IV PAIN Last administered on 02/27/19at 08:08; Admin Dose 15 MG; Start 02/26/19 at 18:00; Stop 03/01/19 at 17:59 Warfarin Sodium (Coumadin) 4 mg 1700 GTB Last administered on 02/26/19at 18:43; Admin Dose 4 MG; Start 02/26/19 at 18:30 Melatonin (Melatonin) 5 mg HS PRN GTB INSOM; Start 02/26/19 at 23:30 Hydromorphone HCl (Dilaudid) 1 mg ONCE PRN IV PAIN; Start 02/27/19 at 01:00 Assessment/Plan Hospital Course (Demo Recall) 43-year-old male was brought to the emergency room because of gross hematuria. That started on 02/25/2019. The patient is known to have had heart valve replacement and has been on Coumadin. On admission to the ER his INR was over 10. He also was bleeding around the G-tube. The patient had a stroke in June 2018 and since then he has been a phasic. He does also have dysphagia and has a G-tube. There is no prior history of gross hematuria. No history of kidney stones. And he never had an indwelling Chan catheter. The irrigation is at a very low rate and the return is clear his PT INR are now normal. We will stop the irrigation and if the urine remains clear then discont inue the irrigation and tomorrow morning remove the Chan catheter. SEDA GLOVER MD Feb 27, 2019 08:37
--- NOTE | 2019-02-27 10:21 | PN ---
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 Ro Subjective: Course reviewed with nursing staff Patient interviewed and examined All labs, imaging and other results reviewed The patient resting in bed, tolerating TF well. No c/o n/v- no further discharge or bleeding at g-tube site Exam PHYSICAL EXAMINATION: GENERAL: Alert, aphasic, in no acute distress SKIN: No lesions HEAD: Normocephalic, atraumatic, no tenderness. EYES: Pupils equal reactive to light and accommodation, no discharge. EARS/NOSE AND THROAT: Ears normal, nose normal NECK: Supple, no masses CHEST: Inspection within normal limits. CARDIOVASCULAR: Heart: Regular rate and rhythm RESPIRATORY: Lungs clear to auscultation GASTROINTESTINAL AND LIVER: Abdomen: Soft, non tenderness, g-tube, non- distended, no hernias, no masses, Hepatomegaly,, no rebound tenderness, normoactive bowel sounds. Rectal: Deferred. EXTREMITIES: No cyanosis, clubbing or edema. Result Diagram: 02/27/19 0424 02/27/19 0424 Results 24hrs Laboratory Tests Test 02/27/19 04:24 White Blood Count 7.8 # Red Blood Count 4.68 L Hemoglobin 13.4 L Hematocrit 41.9 L Mean Corpuscular Volume 89.5 Mean Corpuscular Hemoglobin 28.6 L Mean Corpuscular Hemoglobin Concent 32.0 Red Cell Distribution Width 15.3 H Platelet Count 210 Mean Platelet Volume 9.9 Immature Granulocytes % 1.000 H Neutrophils % 67.4 Lymphocytes % 21.0 Monocytes % 8.8 Eosinophils % 1.4 Basophils % 0.4 Nucleated Red Blood Cells % 0.0 Immature Granulocytes # 0.080 H Neutrophils # 5.2 Lymphocytes # 1.6 Monocytes # 0.7 Eosinophils # 0.1 Basophils # 0.0 Nucleated Red Blood Cells # 0.0 Prothrombin Time 13.8 # Prothrombin Time Ratio 1.1 INR International Normalized Ratio 1.05 Sodium Level 137 Potassium Level 3.4 L Chloride Level 104 Carbon Dioxide Level 27 Anion Gap 6 Blood Urea Nitrogen 15 Creatinine 0.55 L Est Glomerular Filtrat Rate mL/min > 60 Glucose Level 95 Calcium Level 8.2 L Phosphorus Level 4.5 Magnesium Level 2.1 Total Bilirubin 0.8 Direct Bilirubin 0.00 Indirect Bilirubin 0.8 Aspartate Amino Transf (AST/SGOT) 33 Alanine Aminotransferase (ALT/SGPT) 65 Alkaline Phosphatase 90 Total Protein 6.1 Albumin 3.3 Globulin 2.80 Albumin/Globulin Ratio 1.17 Exam/Review of Systems Exam Vitals Vital Signs Date Temp Pulse Resp B/P (MAP) Pulse Ox O2 O2 Flow FiO2 Time Delivery Rate 02/27/19 97.2 72 19 119/58 98 07:31 (78) 02/26/19 Room Air 18:58 Intake and Output 02/26/19 02/26/19 02/27/19 1515:00 23:00 07:00 IntakeIntake Total 1100 ml 966 ml OutputOutput Total 4550 ml 4600 ml BalanceBalance -3450 ml -3634 ml Results Results 24hrs Laboratory Tests Test 02/27/19 04:24 White Blood Count 7.8 # Red Blood Count 4.68 L Hemoglobin 13.4 L Hematocrit 41.9 L Mean Corpuscular Volume 89.5 Mean Corpuscular Hemoglobin 28.6 L Mean Corpuscular Hemoglobin Concent 32.0 Red Cell Distribution Width 15.3 H Platelet Count 210 Mean Platelet Volume 9.9 Immature Granulocytes % 1.000 H Neutrophils % 67.4 Lymphocytes % 21.0 Monocytes % 8.8 Eosinophils % 1.4 Basophils % 0.4 Nucleated Red Blood Cells % 0.0 Immature Granulocytes # 0.080 H Neutrophils # 5.2 Lymphocytes # 1.6 Monocytes # 0.7 Eosinophils # 0.1 Basophils # 0.0 Nucleated Red Blood Cells # 0.0 Prothrombin Time 13.8 # Prothrombin Time Ratio 1.1 INR International Normalized Ratio 1.05 Sodium Level 137 Potassium Level 3.4 L Chloride Level 104 Carbon Dioxide Level 27 Anion Gap 6 Blood Urea Nitrogen 15 Creatinine 0.55 L Est Glomerular Filtrat Rate mL/min > 60 Glucose Level 95 Calcium Level 8.2 L Phosphorus Level 4.5 Magnesium Level 2.1 Total Bilirubin 0.8 Direct Bilirubin 0.00 Indirect Bilirubin 0.8 Aspartate Amino Transf (AST/SGOT) 33 Alanine Aminotransferase (ALT/SGPT) 65 Alkaline Phosphatase 90 Total Protein 6.1 Albumin 3.3 Globulin 2.80 Albumin/Globulin Ratio 1.17 Medications Medication Current Medications Dextrose/Sodium Chloride 1,000 ml @ 100 mls/hr Q10H IV Last administered on 02/27/19at 05:16; Admin Dose 100 MLS/HR; Start 02/26/19 at 04:19 IV Flush (NS 3 ml) 3 ml PER PROTOCOL IV ; Start 02/26/19 at 04:30 Ondansetron HCl (Zofran Inj) 4 mg Q6H PRN IV NAUSEA/VOMITING; Start 02/26/19 at 04:30 Morphine Sulfate (morphine) 2 mg Q4H PRN IV .SEVERE PAIN 7-10 Last administered on 02/27/19at 04:42; Admin Dose 2 MG; Start 02/26/19 at 04:30 Pantoprazole (Protonix Iv) 40 mg DAILY@06 IV Last administered on 02/27/19at 05:16; Admin Dose 40 MG; Start 02/26/19 at 06:00 Albuterol/ Ipratropium (Duoneb) 3 ml Q2H RESP THERAPY PRN HHN SHORTNESS OF BREATH; Start 02/26/19 at 04:30 Levetiracetam 100 ml @ 400 mls/hr Q12 IVPB Last administered on 02/27/19 08:08; Admin Dose 400 MLS/HR; Start 02/26/19 at 21:00 Ketorolac Tromethamine (Toradol) 15 mg Q6H PRN IV PAIN Last administered on 02/27/19at 08:08; Admin Dose 15 MG; Start 02/26/19 at 18:00; Stop 03/01/19 at 17:59 Warfarin Sodium (Coumadin) 4 mg 1700 GTB Last administered on 02/26/19at 18:43; Admin Dose 4 MG; Start 02/26/19 at 18:30 Melatonin (Melatonin) 5 mg HS PRN GTB INSOM; Start 02/26/19 at 23:30 Hydromorphone HCl (Dilaudid) 1 mg ONCE PRN IV PAIN; Start 02/27/19 at 01:00 DEANDRE PHILLIPS Feb 27, 2019 10:21
--- NOTE | 2019-02-27 11:58 | PN ---
Date/Time of Note Date/Time of Note DATE: 02/27/19 TIME: 11:57 Assessment/Plan VTE Prophylaxis Risk score (from Nsg)>0 risk: 1 SCD applied (from Nsg): Yes Pharmacological prophylaxis: heparin Lines/Catheters IV Catheter Type (from Nrsg): Saline Lock Urinary Cath still in place: Yes Reason Cath still needed: urinary retention Assessment/Plan Hospital Course Alert well appearing Expressive aphasia RRR, metallic s21 Flat neck veins Breahting comfortably G tube 1. Gross hematuria likely secondary to supratherapeutic INR -Patient on Coumadin with INR > 10 -Status post FFP and vitamin K, INR now< 2 -Continue bladder irrigation -Urology consult appreciated, etiology believed to be secondary to elevated INR, recommendation is to continue bladder irrigation 2. Bleeding around G-tube x1 week -GI consult appreciated, Patient is actually scheduled to see Dr. Ro at [facility] for EGD -GI has requested cardiology clearance for possible PEG exchange, have consulted patient's primary software tools build engineer Dr. Andrew ([facility] is covering) 3. CVA in June 2018 -Etiology appears to be secondary to history of cardiac valve repair and noncompliance with Coumadin -Patient nonverbal. , follows commands "80% of the time" -Supportive care 4. Cardiac valve replacement in 2009, on Coumadin -Cardiology consult obtained -Resume Coumadin starting tomorrow morning due to risk of further embolic event 5. History of seizures -Keppra IV 6. Headache -Toradol IV Prophylaxis: SCDs DC planning: Continue bladder irrigation, follow-up on urology, GI and cardiolo gy recommendations Result Diagram: 02/27/19 0424 02/27/19 0424 Results 24hrs Laboratory Tests Test 02/27/19 04:24 White Blood Count 7.8 # Red Blood Count 4.68 L Hemoglobin 13.4 L Hematocrit 41.9 L Mean Corpuscular Volume 89.5 Mean Corpuscular Hemoglobin 28.6 L Mean Corpuscular Hemoglobin Concent 32.0 Red Cell Distribution Width 15.3 H Platelet Count 210 Mean Platelet Volume 9.9 Immature Granulocytes % 1.000 H Neutrophils % 67.4 Lymphocytes % 21.0 Monocytes % 8.8 Eosinophils % 1.4 Basophils % 0.4 Nucleated Red Blood Cells % 0.0 Immature Granulocytes # 0.080 H Neutrophils # 5.2 Lymphocytes # 1.6 Monocytes # 0.7 Eosinophils # 0.1 Basophils # 0.0 Nucleated Red Blood Cells # 0.0 Prothrombin Time 13.8 # Prothrombin Time Ratio 1.1 INR International Normalized Ratio 1.05 Sodium Level 137 Potassium Level 3.4 L Chloride Level 104 Carbon Dioxide Level 27 Anion Gap 6 Blood Urea Nitrogen 15 Creatinine 0.55 L Est Glomerular Filtrat Rate mL/min > 60 Glucose Level 95 Calcium Level 8.2 L Phosphorus Level 4.5 Magnesium Level 2.1 Total Bilirubin 0.8 Direct Bilirubin 0.00 Indirect Bilirubin 0.8 Aspartate Amino Transf (AST/SGOT) 33 Alanine Aminotransferase (ALT/SGPT) 65 Alkaline Phosphatase 90 Total Protein 6.1 Albumin 3.3 Globulin 2.80 Albumin/Globulin Ratio 1.17 Subjective 24 Hr Interval Summary Free Text/Dictation Doing well no compalints Exam/Review of Systems Exam Vitals Vital Signs Date Temp Pulse Resp B/P (MAP) Pulse Ox O2 O2 Flow FiO2 Time Delivery Rate 02/27/19 97.2 72 19 119/58 98 07:31 (78) 02/26/19 Room Air 18:58 Intake and Output 02/26/19 02/26/19 02/27/19 1515:00 23:00 07:00 IntakeIntake Total 1100 ml 966 ml OutputOutput Total 4550 ml 4600 ml BalanceBalance -3450 ml -3634 ml Results Results 24hrs Laboratory Tests Test 02/27/19 04:24 White Blood Count 7.8 # Red Blood Count 4.68 L Hemoglobin 13.4 L Hematocrit 41.9 L Mean Corpuscular Volume 89.5 Mean Corpuscular Hemoglobin 28.6 L Mean Corpuscular Hemoglobin Concent 32.0 Red Cell Distribution Width 15.3 H Platelet Count 210 Mean Platelet Volume 9.9 Immature Granulocytes % 1.000 H Neutrophils % 67.4 Lymphocytes % 21.0 Monocytes % 8.8 Eosinophils % 1.4 Basophils % 0.4 Nucleated Red Blood Cells % 0.0 Immature Granulocytes # 0.080 H Neutrophils # 5.2 Lymphocytes # 1.6 Monocytes # 0.7 Eosinophils # 0.1 Basophils # 0.0 Nucleated Red Blood Cells # 0.0 Prothrombin Time 13.8 # Prothrombin Time Ratio 1.1 INR International Normalized Ratio 1.05 Sodium Level 137 Potassium Level 3.4 L Chloride Level 104 Carbon Dioxide Level 27 Anion Gap 6 Blood Urea Nitrogen 15 Creatinine 0.55 L Est Glomerular Filtrat Rate mL/min > 60 Glucose Level 95 Calcium Level 8.2 L Phosphorus Level 4.5 Magnesium Level 2.1 Total Bilirubin 0.8 Direct Bilirubin 0.00 Indirect Bilirubin 0.8 Aspartate Amino Transf (AST/SGOT) 33 Alanine Aminotransferase (ALT/SGPT) 65 Alkaline Phosphatase 90 Total Protein 6.1 Albumin 3.3 Globulin 2.80 Albumin/Globulin Ratio 1.17 Medications Medication Current Medications Dextrose/Sodium Chloride 1,000 ml @ 100 mls/hr Q10H IV Last administered on 02/27/19at 05:16; Admin Dose 100 MLS/HR; Start 02/26/19 at 04:19 IV Flush (NS 3 ml) 3 ml PER PROTOCOL IV ; Start 02/26/19 at 04:30 Ondansetron HCl (Zofran Inj) 4 mg Q6H PRN IV NAUSEA/VOMITING; Start 02/26/19 at 04:30 Morphine Sulfate (morphine) 2 mg Q4H PRN IV .SEVERE PAIN 7-10 Last administered on 02/27/19at 11:31; Admin Dose 2 MG; Start 02/26/19 at 04:30 Pantoprazole (Protonix Iv) 40 mg DAILY@06 IV Last administered on 02/27/19at 05:16; Admin Dose 40 MG; Start 02/26/19 at 06:00 Albuterol/ Ipratropium (Duoneb) 3 ml Q2H RESP THERAPY PRN HHN SHORTNESS OF BREATH; Start 02/26/19 at 04:30 Levetiracetam 100 ml @ 400 mls/hr Q12 IVPB Last administered on 02/27/19at 08:08; Admin Dose 400 MLS/HR; Start 02/26/19 at 21:00 Ketorolac Tromethamine (Toradol) 15 mg Q6H PRN IV PAIN Last administered on 02/27/19 08:08; Admin Dose 15 MG; Start 02/26/19 at 18:00; Stop 03/01/19 at 17:59 Warfarin Sodium (Coumadin) 4 mg 1700 GTB Last administered on 02/26/19at 18:43; Admin Dose 4 MG; Start 02/26/19 at 18:30 Melatonin (Melatonin) 5 mg HS PRN GTB INSOM; Start 02/26/19 at 23:30 TOM SOLIMAN MD Feb 27, 2019 11:58
[2019-02-27 14:48] VITALS: BP 124/62; PULSE 84; RESP 20
[2019-02-27] MEDS: WARFARIN 2 MG TAB GTB SCH (17:15)
--- NOTE | 2019-02-27 18:53 | CONS ---
Assessment/Plan Assessment/Plan Hospital Course (Demo Recall) 1. Hematuria and diffuse bleeding secondary to coagulopathy 2. Severe coagulopathy probably secondary to Coumadin overdose 3. History of mechanical valve replacement 4. History of CVA 5. Mild pulmonary congestion 6. PEG malfunction 7. Cardia vascular pre-evaluation for PEG replacement Recommendations: Patient should be kept off on anticoagulation for minimal amount of time given his history of valve replacement mechanical valve as well as stroke. We will start him on heparin drip for now. However not his INR is subtherapeutic is probably the best time to do procedures such as PEG placement and EGD for him. No other further cardiac work-up would be indicated prior to the placement of PEG and EGD however patient will be started on heparin to be stopped/hold 4 hours prior to the procedure and to be resumed as soon as possible after the procedure. Check daily PT/INR and adjust as needed. Adjustment as per internal medicine Echocardiogram will be ordered as well. At this point patient has no clinical signs of congestive heart failure has lying flat and O2 sat is normal. We will monitor on diuretic will be given as needed basis only. Baseline EKG will be obtained Outpatient follow-up with his regular lead designer Thank you for his referral. We will continue following with you MARIANNE AKHTAR MD [facility] Consultation Date/Type/Reason Admit Date/Time Feb 26, 2019 at 03:22 Date of Consultation: Feb 27, 2019 Type of Consult Cardiology Reason for Consultation cv preop Requesting Provider: MARISELA URBAN Date/Time of Note DATE: 02/27/19 TIME: 18:48 Hx of Present Illness Interventional cardiology consultation note Chief complaint: Diffuse bleeding Reason for consult: Cardia vascular pre-evaluation, status post valve replacement History of present illness: Thank you for this referral. History was informed the patient's mostly from discussion with staff and physician review of the chart. This is an 40 minutes 43-year-old gentleman with history of valvular heart disease status post mechanical valve replacement many years ago about 10 years ago history of CVA who came in because of diffuse bleeding and hematuria. Patient was noted to have INR level of more than 10. He is anticoagulation has been reversed now his INR is normalized and his bleeding has stopped. He is getting his EGD and PEG replacement tomorrow but was kindly asked to evaluate and do appreciate the cardia vascular preop evaluation. Patient is nonverbal since his stroke. Allergies: No known drug allergies Medications were reviewed as per medical reconciliation sheet Family history: No early coronary artery disease Social history: Is lives with family. Non-smoker Past medical history: Valvular heart disease status post valve replacement with a mechanical valve replacement unclear mitral or aortic at this point. According to the it has been very difficult to control his INR level History of CVA 2018 with subsequent dysphagia status post PEG placement Review of system: Patient denies all others except for above-mentioned Past Medical History Home Meds Reported Medications Atorvastatin Calcium (Atorvastatin Calcium) 10 Mg Tablet, 20 MG GTB DAILY, #30 TAB 02/26/19 Citalopram Hydrobromide* (Citalopram Hydrobromide*) 20 Mg Tablet, 20 MG GTB DAILY, #30 TAB 02/26/19 Sennosides* (Senna Lax*) 8.6 Mg Tablet, 1 TAB GTB DAILY PRN for constipation, TAB 02/26/19 Mirtazapine* (Mirtazapine*) 15 Mg Tablet, 15 MG GTB HS, TAB 02/26/19 Dexamethasone* (Dexamethasone*) 2 Mg Tablet, 2 MG GTB QHS, TAB 02/26/19 Zolpidem Tartrate* (Ambien*) 10 Mg Tablet, 10 MG GTB QHS PRN for INSOMNIA, TAB 02/26/19 Warfarin Sod (Coumadin) 3 Mg Tab, 4 MG GTB DAILY, TAB 02/26/19 Metoprolol Tartrate* (Lopressor*) 100 Mg Tablet, 100 MG GTB DAILY, #60 TAB 02/26/19 Levetiracetam* (Levetiracetam*) 500 Mg/5 Ml Solution, 1000 MG GTB BID, ML 02/26/19 Medications Current Medications Dextrose/Sodium Chloride 1,000 ml @ 100 mls/hr Q10H IV Last administered on 02/27/19at 15:42; Admin Dose 100 MLS/HR; Start 02/26/19 at 04:19 IV Flush (NS 3 ml) 3 ml PER PROTOCOL IV ; Start 02/26/19 at 04:30 Ondansetron HCl (Zofran Inj) 4 mg Q6H PRN IV NAUSEA/VOMITING; Start 02/26/19 at 04:30 Morphine Sulfate (morphine) 2 mg Q4H PRN IV .SEVERE PAIN 7-10 Last administered on 02/27/19at 17:15; Admin Dose 2 MG; Start 02/26/19 at 04:30 Pantoprazole (Protonix Iv) 40 mg DAILY@06 IV Last administered on 02/27/19at 05:16; Admin Dose 40 MG; Start 02/26/19 at 06:00 Albuterol/ Ipratropium (Duoneb) 3 ml Q2H RESP THERAPY PRN HHN SHORTNESS OF B REATH; Start 02/26/19 at 04:30 Levetiracetam 100 ml @ 400 mls/hr Q12 IVPB Last administered on 02/27/19at 08:08; Admin Dose 400 MLS/HR; Start 02/26/19 at 21:00 Ketorolac Tromethamine (Toradol) 15 mg Q6H PRN IV PAIN Last administered on 02/27/19at 08:08; Admin Dose 15 MG; Start 02/26/19 at 18:00; Stop 03/01/19 at 17:59 Warfarin Sodium (Coumadin) 4 mg 1700 GTB Last administered on 02/27/19at 17:15; Admin Dose 4 MG; Start 02/26/19 at 18:30 Melatonin (Melatonin) 5 mg HS PRN GTB INSOM; Start 02/26/19 at 23:30 Allergies: Coded Allergies: No Known Drug Allergies (Verified Allergy, Unknown, 01/23/14) Past Surgical History Past Surgical Hx: other (see hpi) Social History Alcohol Use: none Smoking Status: Never smoker Drug Use: none Exam/Review of Systems Vital Signs Vitals Vital Signs Date Temp Pulse Resp B/P (MAP) Pulse Ox O2 O2 Flow FiO2 Time Delivery Rate 02/27/19 98.2 84 20 124/62 97 14:48 (82) 02/26/19 Room Air 18:58 Intake and Output 02/26/19 02/26/19 02/27/19 1515:00 23:00 07:00 IntakeIntake Total 1100 ml 966 ml OutputOutput Total 4550 ml 4600 ml BalanceBalance -3450 ml -3634 ml Exam Exam General: no acute distress HEENT: NC/AT. pupils are equal. round. NECK: no stridor. CV: RRR.+ Chemical click systolic murmur; no gallop or rubs. PULM: no wheezing or rhonchi. GI: SOFT, NT, ND, no rebound or guarding Extremity: trace B/L LE edema. no clubbing. neuro: awake and alert, with aphasia and mild right-sided weakness Psych: calm and pleasant rectal: deferred : There is post Chan catheter in place Chest x-ray showed Mild cardiomegaly and pulmonary venous congestion Labs Result Diagram: 02/27/19 0424 02/27/19 0424 Results 24hrs Laboratory Tests Test 02/27/19 04:24 White Blood Count 7.8 # Red Blood Count 4.68 L Hemoglobin 13.4 L Hematocrit 41.9 L Mean Corpuscular Volume 89.5 Mean Corpuscular Hemoglobin 28.6 L Mean Corpuscular Hemoglobin Concent 32.0 Red Cell Distribution Width 15.3 H Platelet Count 210 Mean Platelet Volume 9.9 Immature Granulocytes % 1.000 H Neutrophils % 67.4 Lymphocytes % 21.0 Monocytes % 8.8 Eosinophils % 1.4 Basophils % 0.4 Nucleated Red Blood Cells % 0.0 Immature Granulocytes # 0.080 H Neutrophils # 5.2 Lymphocytes # 1.6 Monocytes # 0.7 Eosinophils # 0.1 Basophils # 0.0 Nucleated Red Blood Cells # 0.0 Prothrombin Time 13.8 # Prothrombin Time Ratio 1.1 INR International Normalized Ratio 1.05 Sodium Level 137 Potassium Level 3.4 L Chloride Level 104 Carbon Dioxide Level 27 Anion Gap 6 Blood Urea Nitrogen 15 Creatinine 0.55 L Est Glomerular Filtrat Rate mL/min > 60 Glucose Level 95 Calcium Level 8.2 L Phosphorus Level 4.5 Magnesium Level 2.1 Total Bilirubin 0.8 Direct Bilirubin 0.00 Indirect Bilirubin 0.8 Aspartate Amino Transf (AST/SGOT) 33 Alanine Aminotransferase (ALT/SGPT) 65 Alkaline Phosphatase 90 Total Protein 6.1 Albumin 3.3 Globulin 2.80 Albumin/Globulin Ratio 1.17 Medications Medications Current Medications Dextrose/Sodium Chloride 1,000 ml @ 100 mls/hr Q10H IV Last administered on 02/27/19at 15:42; Admin Dose 100 MLS/HR; Start 02/26/19 at 04:19 IV Flush (NS 3 ml) 3 ml PER PROTOCOL IV ; Start 02/26/19 at 04:30 Ondansetron HCl (Zofran Inj) 4 mg Q6H PRN IV NAUSEA/VOMITING; Start 02/26/19 at 04:30 Morphine Sulfate (morphine) 2 mg Q4H PRN IV .SEVERE PAIN 7-10 Last administered on 02/27/19at 17:15; Admin Dose 2 MG; Start 02/26/19 at 04:30 Pantoprazole (Protonix Iv) 40 mg DAILY@06 IV Last administered on 02/27/19 05:16; Admin Dose 40 MG; Start 02/26/19 at 06:00 Albuterol/ Ipratropium (Duoneb) 3 ml Q2H RESP THERAPY PRN HHN SHORTNESS OF BREATH; Start 02/26/19 at 04:30 Levetiracetam 100 ml @ 400 mls/hr Q12 IVPB Last administered on 02/27/19 08:08; Admin Dose 400 MLS/HR; Start 02/26/19 at 21:00 Ketorolac Tromethamine (Toradol) 15 mg Q6H PRN IV PAIN Last administered on 02/27/19 08:08; Admin Dose 15 MG; Start 02/26/19 at 18:00; Stop 03/01/19 at 17:59 Warfarin Sodium (Coumadin) 4 mg 1700 GTB Last administered on 02/27/19 17:15; Admin Dose 4 MG; Start 02/26/19 at 18:30 Melatonin (Melatonin) 5 mg HS PRN GTB INSOM; Start 02/26/19 at 23:30 MARIANNE AKHTAR MD Feb 27, 2019 18:53
[2019-02-27] MEDS ORDERED: HEPARIN 1000 UNITS/ML 10 ML INJ IV ONE (19:00)
[2019-02-27] MEDS ORDERED: HEPARIN 1000 UNITS/ML 10 ML INJ IV PRN ×2 (19:00)
[2019-02-27 19:38] VITALS: BP 120/87; PULSE 77; RESP 18
[2019-02-27] MEDS: ACETAMINOPHEN 325 MG TAB PO PRN (21:43)
[2019-02-28] VITALS (13 sets, daily range): BP systolic 90–114; BP diastolic 53–80; PULSE 72–89; RESP 10–21
[2019-02-28] MEDS: HEPARIN 25000 UNITS/250 ML 250 ML IV SCH ×2 (01:35→23:30)
[2019-02-28] MEDS: ACETAMINOPHEN 325 MG TAB PO PRN ×2 (04:44→18:57)
[2019-02-28] MEDS: PANTOPRAZOLE 40 MG INJ IV SCH (04:50)
[2019-02-28] MEDS: DEXTROSE 5%-0.45% NACL 1,000 ML IV SCH ×2 (04:51→21:27)
[2019-02-28] MEDS: KETOROLAC 15 MG INJ IV PRN ×2 (08:32→21:24)
[2019-02-28] MEDS: LEVETIRACETAM 1000 MG (PMX) 100 ML IVPB SCH (09:56)
--- NOTE | 2019-02-28 12:28 | RADRPT ---
Echocardiogram Report Patient Name: MIRYAM HILLPatient ID: [id number] : 1975 (43y 11m)Study Date: 02/28/2019 7:05:35 AM Gender: MAccession #: [id number] Tech: Jasmine Jones RDCS Location: [id number] Ref.Physician: MARIANNE MICHAEL Height(Cm): BSA: Weight(Kg): Quality: AdequateOrder Physician: MARIANNE MICHAEL Account #: Procedures: Echocardiographic Report: Transthoracic echocardiogram with complete 2D, M-Mode, and doppler examination. Indications: s/p aortic valve replacement. Measurements: 2D/M Mode Doppler Measurement Value Normal Range Measurement Value Normal Range LVIDd 2D 4.9 [ 4.2 - 5.8 ] cm AV Mean Brad 1.1 [ 70.0 - 90.0 ] cm/sec LVIDs 2D 2.4 [ 2.5 - 4.0 ] cm AV Mean PG 6.0 [ 2.0 - 4.0 ] mmHg LVPWd 2D 0.9 [ 0.6 - 1.0 ] cm AV VTI 25.8 cm IVSd 2D 1.0 [ 0.6 - 1.0 ] cm LVOT Mean Brad 0.5 [ 60.0 - 80.0 ] cm/sec AoR Diam 2D 2.5 [ 2.6 - 3.4 ] cm LVOT Mean PG 1.0 [ 1.0 - 3.0 ] mmHg EDV 2D 114.0 [ 62.0 - 150.0 ] ml LVOT Peak Brad 0.8 [ 70.0 - 110.0 ] cm/sec ESV 2D 20.2 [ 21.0 - 61.0 ] ml LVOT Peak PG 2.0 [ 2.0 - 6.0 ] mmHg EF 2D 82.3 [ 52.0 - 72.0 ] percent LVOT VTI 13.0 [ 20.0 - 30.0 ] cm LA Dimen 2D 2.9 [ 3.0 - 4.0 ] cm MV E Peak Brad 0.5 [ 60.0 - 130.0 ] cm/sec MV A Peak Brad 0.7 [ 100.0 - 120.0 ] cm/sec MV E/A 0.7 [ 0.8 - 1.5 ] ratio MV Decel Time 169 [ 104 - 258 ] msec Lat E` Brad 0.1 [ 10.0 - 15.0 ] cm/sec Lateral E/E` 5.0 [ 1.0 - 2.0 ] ratio Med E` Brad 0.1 cm/sec MV E/A 0.7 [ 0.8 - 1.5 ] ratio Findings: Left Ventricle: Normal left ventricular systolic function. Normal left ventricular cavity size. Normal left ventricular wall thickness. Ejection fraction is visually estimated at 55 %. Tissue Doppler/Mitral Doppler indices are consistent with impaired relaxation (Stage I diastolic dysfunction). Right Ventricle: Normal right ventricular size. Normal right ventricular systolic function. Left Atrium: The left atrium is normal in size. Right Atrium: The right atrium is normal in size. Mitral Valve: Normal appearance and function of the mitral valve with trace physiologic regurgitation. Aortic Valve: Aortic valve not well visualized. Aortic Valve Mechanical Prosthesis. Aortic valve Max velocity 1.51 m/sec. Max PG 9.00 mmHg. Mean PG 5.00 mmHg. Trace aortic valve regurgitation. Tricuspid Valve: Normal appearance and function of the tricuspid valve with trace physiologic regurgitation. Normal right ventricular systolic pressure. Pulmonic Valve: Normal pulmonic valve appearance. Pericardium: Normal pericardium with no significant pericardial effusion. Aorta: Normal aortic root. IVC: Normal size and normal respiratory collapse consistent with normal right atrial pressure. Conclusions: Normal left ventricular systolic function. Normal left ventricular cavity size. Normal left ventricular wall thickness. Ejection fraction is visually estimated at 55 %. Tissue Doppler/Mitral Doppler indices are consistent with impaired relaxation (Stage I diastolic dysfunction). Normal appearance and function of the mitral valve with trace physiologic regurgitation. Normal appearance and function of the tricuspid valve with trace physiologic regurgitation. Normal right ventricular systolic pressure. Aortic valve not well visualized. Aortic Valve Mechanical Prosthesis. Aortic valve Max velocity 1.51 m/sec. Max PG 9.00 mmHg. Mean PG 5.00 mmHg. Trace aortic valve regurgitation. Electronically Signed By: Marianne Michael 2019-02-28 12:27:38 PDT
--- NOTE | 2019-02-28 12:45 | CONS ---
Consult Date/Type/Reason Admit Date/Time Feb 26, 2019 at 03:22 Initial Consult Date 02/27/19 Type of Consultation: CV Requesting Provider: MARISELA URBAN Date/Time of Note DATE: 02/28/19 TIME: 12:43 Subjective CV follow up S D/W staff and no active bleeding no cp no PND orthopnea pt is awaiting PEG O: General: no acute distress HEENT: NC/AT. pupils are equal. round. NECK: no stridor. CV: RRR.+ Chemical click systolic murmur; no gallop or rubs. PULM: no wheezing or rhonchi. GI: SOFT, NT, ND, no rebound or guarding Extremity: trace B/L LE edema. no clubbing. neuro: awake and alert, with aphasia and mild right-sided weakness Psych: calm and pleasant rectal: deferred : There is post Chan catheter in place Chest x-ray showed Mild cardiomegaly and pulmonary venous congestion echo Reviewed Objective Vitals Vital Signs Date Temp Pulse Resp B/P (MAP) Pulse Ox O2 O2 Flow FiO2 Time Delivery Rate 02/28/19 83 20 99/59 (72) 97 03:15 02/28/19 99.1 02:39 02/27/19 Room Air 19:38 Intake and Output 02/27/19 02/27/19 02/28/19 1515:00 23:00 07:00 IntakeIntake Total 100 ml 1300 ml 867 ml OutputOutput Total 2000 ml 900 ml BalanceBalance 100 ml -700 ml -33 ml Results/Medications Result Diagram: 02/27/19 1921 02/27/19 0424 Results 24 hrs Laboratory Tests Test 02/27/19 19:21 02/28/19 04:31 02/28/19 07:22 02/28/19 08:34 White Blood Count 9.0 Red Blood Count 4.92 Hemoglobin 14.2 Hematocrit 45.4 Mean Corpuscular 92.3 Volume Mean Corpuscular 28.9 L Hemoglobin Mean Corpuscular 31.3 L Hemoglobin Concen t Red Cell 15.2 H Distribution Width Platelet Count 194 Mean Platelet 10.0 Volume Immature 0.900 H Granulocytes % Neutrophils % 69.3 Lymphocytes % 18.3 Monocytes % 9.8 Eosinophils % 1.3 Basophils % 0.4 Nucleated Red 0.0 Blood Cells % Immature 0.080 H Granulocytes # Neutrophils # 6.2 Lymphocytes # 1.7 Monocytes # 0.9 Eosinophils # 0.1 Basophils # 0.0 Nucleated Red 0.0 Blood Cells # Prothrombin Time 13.8 16.1 H Prothrombin Time 1.1 1.3 Ratio INR International 1.05 1.28 Normalized Ratio Activated 30.8 > 180.0 *H Partial Thrombopl ast Time Lab Scanned BLOOD TRANSFUSIO Report N Home Meds Reported Medications Atorvastatin Calcium (Atorvastatin Calcium) 10 Mg Tablet, 20 MG GTB DAILY, #30 TAB 02/26/19 Citalopram Hydrobromide* (Citalopram Hydrobromide*) 20 Mg Tablet, 20 MG GTB DAILY, #30 TAB 02/26/19 Sennosides* (Senna Lax*) 8.6 Mg Tablet, 1 TAB GTB DAILY PRN for constipation, TAB 02/26/19 Mirtazapine* (Mirtazapine*) 15 Mg Tablet, 15 MG GTB HS, TAB 02/26/19 Dexamethasone* (Dexamethasone*) 2 Mg Tablet, 2 MG GTB QHS, TAB 02/26/19 Zolpidem Tartrate* (Ambien*) 10 Mg Tablet, 10 MG GTB QHS PRN for INSOMNIA, TAB 02/26/19 Warfarin Sod (Coumadin) 3 Mg Tab, 4 MG GTB DAILY, TAB 02/26/19 Metoprolol Tartrate* (Lopressor*) 100 Mg Tablet, 100 MG GTB DAILY, #60 TAB 02/26/19 Levetiracetam* (Levetiracetam*) 500 Mg/5 Ml Solution, 1000 MG GTB BID, ML 02/26/19 Medications Current Medications Dextrose/Sodium Chloride 1,000 ml @ 100 mls/hr Q10H IV Last administered on 02/28/19at 04:51; Admin Dose 100 MLS/HR; Start 02/26/19 at 04:19 IV Flush (NS 3 ml) 3 ml PER PROTOCOL IV ; Start 02/26/19 at 04:30 Ondansetron HCl (Zofran Inj) 4 mg Q6H PRN IV NAUSEA/VOMITING; Start 02/26/19 at 04:30 Morphine Sulfate (morphine) 2 mg Q4H PRN IV .SEVERE PAIN 7-10 Last administered on 02/27/19at 17:15; Admin Dose 2 MG; Start 02/26/19 at 04:30 Pantoprazole (Protonix Iv) 40 mg DAILY@06 IV Last administered on 02/28/19 04:50; Admin Dose 40 MG; Start 02/26/19 at 06:00 Albuterol/ Ipratropium (Duoneb) 3 ml Q2H RESP THERAPY PRN HHN SHORTNESS OF BREATH; Start 02/26/19 at 04:30 Levetiracetam 100 ml @ 400 mls/hr Q12 IVPB Last administered on 02/28/19 09:56; Admin Dose 400 MLS/HR; Start 02/26/19 at 21:00 Ketorolac Tromethamine (Toradol) 15 mg Q6H PRN IV PAIN Last administered on 02/28/19 08:32; Admin Dose 15 MG; Start 02/26/19 at 18:00; Stop 03/01/19 at 17:59 Warfarin Sodium (Coumadin) 4 mg 1700 GTB Last administered on 02/27/19 17:15; Admin Dose 4 MG; Start 02/26/19 at 18:30 Melatonin (Melatonin) 5 mg HS PRN GTB INSOM Last administered on 02/27/19 23:07; Admin Dose 5 MG; Start 02/26/19 at 23:30 Heparin Sodium (Porcine) (Heparin (1000 Units/ml)) 5,800 unit PER PROTOCOL PRN IV aPTT<47 Last administered on 02/28/19 02:03; Admin Dose 5,800 UNIT; Start 02/27/19 at 19:00 Heparin Sodium (Porcine) (Heparin (1000 Units/ml)) 2,900 unit PER PROTOCOL PRN IV aPTT<47-57; Start 02/27/19 at 19:00 Heparin Sodium (Porcine) 250 ml @ 13 mls/hr PER PROTOCOL IV Last administered on 02/28/19 01:35; Admin Dose 13 MLS/HR; Start 02/27/19 at 19:00 Acetaminophen (Tylenol Tab) 650 mg Q6H PRN PO MILD PAIN(1-3)OR ELEVATED TEMP Last administered on 02/28/19 04:44; Admin Dose 650 MG; Start 02/27/19 at 21:30 Assessment/Plan Hospital Course (Demo Recall) 1. Hematuria and diffuse bleeding secondary to coagulopathy 2. Severe coagulopathy probably secondary to Coumadin overdose 3. History of mechanical aortic valve replacement 4. History of CVA 5. Mild pulmonary congestion 6. PEG malfunction 7. Cardia vascular pre-evaluation for PEG replacement Recommendations: Patient should be kept off on anticoagulation for minimal amount of time given his history of mechanical AVR as well as stroke. We will start him on heparin drip for now. However not his INR is subtherapeutic is probably the best time to do procedures such as PEG placement and EGD for him. No other further cardiac work-up would be indicated prior to the placement of PEG and EGD however patient will has been started on heparin to be stopped/hold 4 hours prior to the procedure and to be resumed as soon as possible after the procedure. Check daily PT/INR and adjust as needed. Adjustment as per internal medicine. At this point patient has no clinical signs of congestive heart failure has lying flat and O2 sat is normal. We will monitor on diuretic will be given as needed basis only. 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 We will continue following with you MARIANNE AKHTAR MD [facility] MARIANNE AKHTAR MD Feb 28, 2019 12:45
--- NOTE | 2019-02-28 14:12 | PN ---
Date/Time of Note Date/Time of Note DATE: 02/28/19 TIME: 14:04 Assessment/Plan VTE Prophylaxis Risk score (from Ns)>0 risk: 3 SCD applied (from Ns): Yes Pharmacological prophylaxis: heparin Lines/Catheters [facility] Peripheral IV Urinary Cath still in place: Yes Reason Cath still needed: other (indicate) Assessment/Plan Assessment/Plan 1. Hematuria from anticoagulant, follow up with H/H 2. s/p mechanical aortic valve replacement in 2009, on heparin drip now, resume coumadin per Dr. Michael 3. PEG malfunction, s/p PEG replacement on 02/28/2019, stable 4. CVA with right sided weakness in June 2018 5. History of seizures, on keppra Result Diagram: 02/27/19 1921 02/27/19 0424 Results 24hrs Laboratory Tests Test 02/27/19 19:21 02/28/19 04:31 02/28/19 07:22 02/28/19 08:34 White Blood Count 9.0 Red Blood Count 4.92 Hemoglobin 14.2 Hematocrit 45.4 Mean Corpuscular 92.3 Volume Mean Corpuscular 28.9 L Hemoglobin Mean Corpuscular 31.3 L Hemoglobin Concen t Red Cell 15.2 H Distribution Width Platelet Count 194 Mean Platelet 10.0 Volume Immature 0.900 H Granulocytes % Neutrophils % 69.3 Lymphocytes % 18.3 Monocytes % 9.8 Eosinophils % 1.3 Basophils % 0.4 Nucleated Red 0.0 Blood Cells % Immature 0.080 H Granulocytes # Neutrophils # 6.2 Lymphocytes # 1.7 Monocytes # 0.9 Eosinophils # 0.1 Basophils # 0.0 Nucleated Red 0.0 Blood Cells # Prothrombin Time 13.8 16.1 H Prothrombin Time 1.1 1.3 Ratio INR International 1.05 1.28 Normalized Ratio Activated 30.8 > 180.0 *H Partial Thrombopl ast Time Lab Scanned BLOOD TRANSFUSIO Report N Subjective 24 Hr Interval Summary Free Text/Dictation seen in recovery room s/p PEG replacement still has hematuria Exam/Review of Systems Exam Vitals Vital Signs Date Temp Pulse Resp B/P (MAP) Pulse Ox O2 O2 Flow FiO2 Time Delivery Rate 02/28/19 83 20 99/59 (72) 97 03:15 02/28/19 99.1 02:39 02/27/19 Room Air 19:38 Intake and Output 02/27/19 02/27/19 02/28/19 1515:00 23:00 07:00 IntakeIntake Total 100 ml 1300 ml 867 ml OutputOutput Total 2000 ml 900 ml BalanceBalance 100 ml -700 ml -33 ml Constitutional: alert, oriented, well developed Eyes: nl conjunctiva, EOMI, nl lids ENMT: nl external ears & nose, nl lips & teeth, nl nasal mucosa & septum Neck: supple, non-tender Respiratory: clear to auscultation, normal air movement; No congested cough, No crackles/rales, No diminished breath sounds, No intercostal retraction, No labored breathing, No respirations, No tactile fremitus, No wheezing, No other Cardiovascular: regular rate and rhythm, nl pulses Gastrointestinal: soft, nl liver, spleen, non-tender Musculoskeletal: nl extremities to inspection Extremities: normal pulses; No calf tenderness, No cyanosis, No clubbing, No edema, No pitting pedal edema, No palpable cord, No tenderness, No other Neurological: ENERGY CONSERVATION TECHNICIAN II-XII intact, nl mental status, other (LUE/LLE 4/5) Results Results 24hrs Laboratory Tests Test 02/27/19 19:21 02/28/19 04:31 02/28/19 07:22 02/28/19 08:34 White Blood Count 9.0 Red Blood Count 4.92 Hemoglobin 14.2 Hematocrit 45.4 Mean Corpuscular 92.3 Volume Mean Corpuscular 28.9 L Hemoglobin Mean Corpuscular 31.3 L Hemoglobin Concen t Red Cell 15.2 H Distribution Width Platelet Count 194 Mean Platelet 10.0 Volume Immature 0.900 H Granulocytes % Neutrophils % 69.3 Lymphocytes % 18.3 Monocytes % 9.8 Eosinophils % 1.3 Basophils % 0.4 Nucleated Red 0.0 Blood Cells % Immature 0.080 H Granulocytes # Neutrophils # 6.2 Lymphocytes # 1.7 Monocytes # 0.9 Eosinophils # 0.1 Basophils # 0.0 Nucleated Red 0.0 Blood Cells # Prothrombin Time 13.8 16.1 H Prothrombin Time 1.1 1.3 Ratio INR International 1.05 1.28 Normalized Ratio Activated 30.8 > 180.0 *H Partial Thrombopl ast Time Lab Scanned BLOOD TRANSFUSIO Report N Medications Medication Current Medications Dextrose/Sodium Chloride 1,000 ml @ 100 mls/hr Q10H IV Last administered on 02/28/19 04:51; Admin Dose 100 MLS/HR; Start 02/26/19 at 04:19 IV Flush (NS 3 ml) 3 ml PER PROTOCOL IV ; Start 02/26/19 at 04:30 Ondansetron HCl (Zofran Inj) 4 mg Q6H PRN IV NAUSEA/VOMITING; Start 02/26/19 at 04:30 Morphine Sulfate (morphine) 2 mg Q4H PRN IV .SEVERE PAIN 7-10 Last administered on 02/27/19 17:15; Admin Dose 2 MG; Start 02/26/19 at 04:30 Pantoprazole (Protonix Iv) 40 mg DAILY@06 IV Last administered on 02/28/19 04:50; Admin Dose 40 MG; Start 02/26/19 at 06:00 Albuterol/ Ipratropium (Duoneb) 3 ml Q2H RESP THERAPY PRN HHN SHORTNESS OF ELDER ATH; Start 02/26/19 at 04:30 Levetiracetam 100 ml @ 400 mls/hr Q12 IVPB Last administered on 02/28/19 09:56; Admin Dose 400 MLS/HR; Start 02/26/19 at 21:00 Ketorolac Tromethamine (Toradol) 15 mg Q6H PRN IV PAIN Last administered on 02/28/19 08:32; Admin Dose 15 MG; Start 02/26/19 at 18:00; Stop 03/01/19 at 17:59 Warfarin Sodium (Coumadin) 4 mg 1700 GTB Last administered on 02/27/19 17:15; Admin Dose 4 MG; Start 02/26/19 at 18:30 Melatonin (Melatonin) 5 mg HS PRN GTB INSOM Last administered on 02/27/19 23:07; Admin Dose 5 MG; Start 02/26/19 at 23:30 Heparin Sodium (Porcine) (Heparin (1000 Units/ml)) 5,800 unit PER PROTOCOL PRN IV aPTT<47 Last administered on 02/28/19 02:03; Admin Dose 5,800 UNIT; Start 02/27/19 at 19:00 Heparin Sodium (Porcine) (Heparin (1000 Units/ml)) 2,900 unit PER PROTOCOL PRN IV aPTT<47-57; Start 02/27/19 at 19:00 Heparin Sodium (Porcine) 250 ml @ 13 mls/hr PER PROTOCOL IV Last administered on 02/28/19at 01:35; Admin Dose 13 MLS/HR; Start 02/27/19 at 19:00 Acetaminophen (Tylenol Tab) 650 mg Q6H PRN PO MILD PAIN(1-3)OR ELEVATED TEMP Last administered on 02/28/19at 04:44; Admin Dose 650 MG; Start 02/27/19 at 21:30 SG PHILLIPS MD Feb 28, 2019 14:12
--- NOTE | 2019-02-28 14:14 | HPN ---
Date/Time of Note Date/Time of Note DATE: 02/28/19 TIME: 14:13 Interval H&P Admission Note Pt. seen H&P reviewed: No system changes MYRTLE SANDOVAL MD Feb 28, 2019 14:14
--- NOTE | 2019-02-28 14:18 | PREAC ---
Date/Time of Note Date/Time of Note DATE: 02/28/19 TIME: 14:17 Anesthesia Eval and Record Evaluation Time Pre-Procedure Interview DATE: 02/28/19 TIME: 14:17 Age 43 Sex male NPO: 8 hrs Preoperative diagnosis dysphagia Planned procedure EGD PEG replacement Past Medical History Past Medical History: Includes Cardio: Dyslipidemia, CABG Neuro: CVA Surgery & Anesthesia Issues No known issue Meds Anticoagulation: No Beta Leonel within 24 hr: Yes Reason Beta Leonel not given: Pt. not on B-Leonel Reported Medications Atorvastatin Calcium (Atorvastatin Calcium) 10 Mg Tablet, 20 MG GTB DAILY, #30 TAB 02/26/19 Citalopram Hydrobromide* (Citalopram Hydrobromide*) 20 Mg Tablet, 20 MG GTB GERMÁN LY, #30 TAB 02/26/19 Sennosides* (Senna Lax*) 8.6 Mg Tablet, 1 TAB GTB DAILY PRN for constipation, TAB 02/26/19 Mirtazapine* (Mirtazapine*) 15 Mg Tablet, 15 MG GTB HS, TAB 02/26/19 Dexamethasone* (Dexamethasone*) 2 Mg Tablet, 2 MG GTB QHS, TAB 02/26/19 Zolpidem Tartrate* (Ambien*) 10 Mg Tablet, 10 MG GTB QHS PRN for INSOMNIA, TAB 02/26/19 Warfarin Sod (Coumadin) 3 Mg Tab, 4 MG GTB DAILY, TAB 02/26/19 Metoprolol Tartrate* (Lopressor*) 100 Mg Tablet, 100 MG GTB DAILY, #60 TAB 02/26/19 Levetiracetam* (Levetiracetam*) 500 Mg/5 Ml Solution, 1000 MG GTB BID, ML 02/26/19 Current Medications Dextrose/Sodium Chloride 1,000 ml @ 100 mls/hr Q10H IV Last administered on 02/28/19at 04:51; Admin Dose 100 MLS/HR; Start 02/26/19 at 04:19 IV Flush (NS 3 ml) 3 ml PER PROTOCOL IV ; Start 02/26/19 at 04:30 Ondansetron HCl (Zofran Inj) 4 mg Q6H PRN IV NAUSEA/VOMITING; Start 02/26/19 at 04:30 Morphine Sulfate (morphine) 2 mg Q4H PRN IV .SEVERE PAIN 7-10 Last administered on 02/27/19 17:15; Admin Dose 2 MG; Start 02/26/19 at 04:30 Pantoprazole (Protonix Iv) 40 mg DAILY@06 IV Last administered on 02/28/19 04:50; Admin Dose 40 MG; Start 02/26/19 at 06:00 Albuterol/ Ipratropium (Duoneb) 3 ml Q2H RESP THERAPY PRN HHN SHORTNESS OF B REATH; Start 02/26/19 at 04:30 Levetiracetam 100 ml @ 400 mls/hr Q12 IVPB Last administered on 02/28/19 09:56; Admin Dose 400 MLS/HR; Start 02/26/19 at 21:00 Ketorolac Tromethamine (Toradol) 15 mg Q6H PRN IV PAIN Last administered on 02/28/19 08:32; Admin Dose 15 MG; Start 02/26/19 at 18:00; Stop 03/01/19 at 17:59 Warfarin Sodium (Coumadin) 4 mg 1700 GTB Last administered on 02/27/19 17:15; Admin Dose 4 MG; Start 02/26/19 at 18:30 Melatonin (Melatonin) 5 mg HS PRN GTB INSOM Last administered on 02/27/19 23:07; Admin Dose 5 MG; Start 02/26/19 at 23:30 Heparin Sodium (Porcine) (Heparin (1000 Units/ml)) 5,800 unit PER PROTOCOL PRN IV aPTT<47 Last administered on 02/28/19 02:03; Admin Dose 5,800 UNIT; Start 02/27/19 at 19:00 Heparin Sodium (Porcine) (Heparin (1000 Units/ml)) 2,900 unit PER PROTOCOL PRN IV aPTT<47-57; Start 02/27/19 at 19:00 Heparin Sodium (Porcine) 250 ml @ 13 mls/hr PER PROTOCOL IV Last administered on 02/28/19 01:35; Admin Dose 13 MLS/HR; Start 02/27/19 at 19:00 Acetaminophen (Tylenol Tab) 650 mg Q6H PRN PO MILD PAIN(1-3)OR ELEVATED TEMP Last administered on 02/28/19 04:44; Admin Dose 650 MG; Start 02/27/19 at 21:30 Meds reviewed: Yes Allergies Coded Allergies: No Known Drug Allergies (Verified Allergy, Unknown, 01/23/14) Allergies Reviewed: Yes Labs/Studies Labs Reviewed: Reviewed by anesthesiologist Result Diagram: 02/27/19 1921 02/27/19 0424 Laboratory Tests 02/27/19 19:21 test: N/A Studies: ECG (sr), CXR (cardiomegally) Pre-procedure Exam Last vitals Vital Signs Date Temp Pulse Resp B/P (MAP) Pulse Ox O2 O2 Flow FiO2 Time Delivery Rate 02/28/19 83 20 99/59 (72) 97 03:15 02/28/19 99.1 02:39 02/27/19 Room Air 19:38 Airway: Adequate mouth opening Mallampati: Mallampati I Teeth: Normal Lung: Normal Heart: Normal ASA Physical Status ASA physical status: 2 Emergency: None Planned Anesthetic General/MAC: MAC Planned Pain Management Parenteral pain med Pre-operative Attestations Prior to commencing anesthesia and surgery, the patient was re-evaluated, there was verification of: *The patient's identity *The results of appropriate recent lab work and preoperative vital signs *The above evaluation not changing prior to induction *Anesthetic plan, risk benefits, alternative and complications discussed with patient/family; questions answered; patient/family understands, accepts and wishes to proceed. NAS PHIPPS MD Feb 28, 2019 14:18
[2019-02-28] MEDS ORDERED: PROPOFOL 20 ML ONE (14:20)
[2019-02-28] MEDS ORDERED: FENTAnyl 50 MCG/ML VIAL ONE (14:20)
[2019-02-28] MEDS ORDERED: ONDANSETRON 4 MG INJ IV PRN (14:30)
[2019-02-28] MEDS: morphine 2 MG INJ IV PRN (14:57)
--- NOTE | 2019-02-28 16:13 | PSY ---
Date/Time of Note Date/Time of Note DATE: 02/28/19 TIME: 16:08 Psychiatric Subjective Eval Consent Pt consented to telemedicine: No Subjective Evaluation Patient location: inpatient Chief Complaint: BIB [id number]. BLOOD IN URINE, RED SPOTS ANTERIOR UPPER CHEST X 3 DAYS History of present illness Patient is a 43-year-old male who is currently on the medical units.. On a [id number] evaluation, patient is nonverbal Perez alert and oriented, and able to respond to questions by nodding his head. He reports he admits feeling depressed, but denies suicidal ideation. Patient also refused psychiatric me dication even though risk and benefits were discussed with patient. Past psychiatric history History of depression Hospitalization: other Medical history Problems Medical Problems: (1) Gross hematuria Status: Acute (2) Hemorrhagic cystitis Status: Acute (3) Patient left without being seen Status: Acute Allergies: Coded Allergies: No Known Drug Allergies (Verified Allergy, Unknown, 01/23/14) Substance Abuse Substance use: other Substance abuse history: No Prior substance abuse treatmen: No Social History DPA/Conservatorship: No Psychiatric Objective Eval Review of Systems: Review of Systems: Not Applicable Physical Examination: Appetite: Decreased Energy: Decreased Mental Status Examination: Appearance: Poor Hygiene Eye Contact: Fair Behavior: Cooperative Speech: Other (Nonverbal) AFFECT: Flat Mood: Depressed, Anxious Though Process: Linear Orientation: x4 Attention Span: Distractible Laboratory Results Laboratory Tests Test 02/27/19 04:24 02/27/19 19:21 02/28/19 04:31 02/28/19 07:22 White Blood 7.8 10^3/ul 9.0 10^3/ul Count Red Blood Count 4.68 10^6/ul 4.92 10^6/ul Hemoglobin 13.4 g/dl 14.2 g/dl Hematocrit 41.9 % 45.4 % Mean Corpuscular 89.5 fl 92.3 fl Volume Mean Corpuscular 28.6 pg 28.9 pg Hemoglobin Mean Corpuscular 32.0 g/dl 31.3 g/dl Hemoglobin Sofy nt Red Cell 15.3 % 15.2 % Distribution Width Platelet Count 210 10^3/UL 194 10^3/UL Mean Platelet 9.9 fl 10.0 fl Volume Immature 1.000 % 0.900 % Granulocytes % Neutrophils % 67.4 % 69.3 % Lymphocytes % 21.0 % 18.3 % Monocytes % 8.8 % 9.8 % Eosinophils % 1.4 % 1.3 % Basophils % 0.4 % 0.4 % Nucleated Red 0.0 /100WBC 0.0 /100WBC Blood Cells % Immature 0.080 10^3/ul 0.080 10^3/ul Granulocytes # Neutrophils # 5.2 10^3/ul 6.2 10^3/ul Lymphocytes # 1.6 10^3/ul 1.7 10^3/ul Monocytes # 0.7 10^3/ul 0.9 10^3/ul Eosinophils # 0.1 10^3/ul 0.1 10^3/ul Basophils # 0.0 10^3/ul 0.0 10^3/ul Nucleated Red 0.0 10^3/ul 0.0 10^3/ul Blood Cells # Prothrombin Time 13.8 Sec 13.8 Sec 16.1 Sec Prothrombin Time 1.1 1.1 1.3 Ratio INR 1.05 1.05 1.28 International Normalized Ratio Sodium Level 137 mmol/L Potassium Level 3.4 mmol/L Chloride Level 104 mmol/L Carbon Dioxide 27 mmol/L Level Anion Gap 6 Blood Urea 15 mg/dl Nitrogen Creatinine 0.55 mg/dl Est Glomerular > 60 mL/min Filtrat Rate mL/min Glucose Level 95 mg/dl Calcium Level 8.2 mg/dl Phosphorus Level 4.5 mg/dl Magnesium Level 2.1 mg/dl Total Bilirubin 0.8 mg/dl Direct Bilirubin 0.00 mg/dl Indirect 0.8 mg/dl Bilirubin Aspartate Amino 33 IU/L Transf (AST/SGOT ) Alanine 65 IU/L Aminotransferase (ALT/SGPT) Alkaline 90 IU/L Phosphatase Total Protein 6.1 g/dl Albumin 3.3 g/dl Globulin 2.80 g/dl Albumin/Globulin 1.17 Ratio Activated 30.8 Sec Partial Thrombop last Time Lab Scanned BLOOD TRANSFUSI Report ON Test 02/28/19 08:34 Activated > 180.0 Sec Partial Thrombop last Time Assessment and Plan Assessment/Diagnosis Diagnosis Major depressive disorder severe recurrent without psychosis Recommendation/Plan Medication Management Declined Psychotherapy Provide supportive therapy Discharge Disposition: Other (Other) Legal Status: Voluntary (Criteria for 5150 hold) SAYRA ALVARENGA NP Feb 28, 2019 16:13
--- NOTE | 2019-02-28 16:46 | PAC ---
Date/Time of Note Date/Time of Note DATE: 02/28/19 TIME: 16:46 Post-Anesthesia Notes Post-Anesthesia Note Last documented vital signs Vital Signs Date Temp Pulse Resp B/P (MAP) Pulse Ox O2 O2 Flow FiO2 Time Delivery Rate 02/28/19 98.5 78 12 90/61 (71) 98 Room Air 15:14 02/28/19 98.4 14:38 02/28/19 10 14:15 Activity: WNL Respiratory function: WNL Cardiovascular function: WNL Mental status: Baseline Pain reasonably controlled: Yes Hydration appropriate: Yes Nausea/Vomiting absent: No NAS PHIPPS MD Feb 28, 2019 16:46
[2019-02-28] MEDS: WARFARIN 2 MG TAB GTB SCH (18:56)
--- NOTE | 2019-02-28 19:46 | CONS ---
Consult Date/Type/Reason Admit Date/Time Feb 26, 2019 at 03:22 Initial Consult Date 02/26/19 Type of Consultation: Urology Reason for Consultation Gross hematuria Requesting Provider: MARISELA URBAN Date/Time of Note DATE: 02/28/19 TIME: 19:42 Subjective Patient is aphasic but is awake. He has no complaints. Objective Vitals Vital Signs Date Temp Pulse Resp B/P (MAP) Pulse Ox O2 O2 Flow FiO2 Time Delivery Rate 02/28/19 98.9 89 16 106/64 97 Room Air 19:11 (78) 02/28/19 10 14:15 Intake and Output 02/27/19 02/27/19 02/28/19 1515:00 23:00 07:00 IntakeIntake Total 100 ml 1300 ml 867 ml OutputOutput Total 2000 ml 900 ml BalanceBalance 100 ml -700 ml -33 ml Exam His urine has been changing color between blood-tinged and yellow. He was on heparin drip and that caused him bleeding then it was stopped for GI procedure. Presently the urine is clear in the tubing. Results/Medications Result Diagram: 02/27/19 19202/27/19 0424 Results 24 hrs Laboratory Tests Test 02/28/19 04:31 02/28/19 07:22 02/28/19 08:34 Prothrombin Time 16.1 H Prothrombin Time Ratio 1.3 INR International 1.28 Normalized Ratio Lab Scanned Report BLOOD TRANSFUSION Activated Partial Thromboplast > 180.0 *H Time Home Meds Reported Medications Atorvastatin Calcium (Atorvastatin Calcium) 10 Mg Tablet, 20 MG GTB DAILY, #30 TAB 02/26/19 Citalopram Hydrobromide* (Citalopram Hydrobromide*) 20 Mg Tablet, 20 MG GTB DAILY, #30 TAB 02/26/19 Sennosides* (Senna Lax*) 8.6 Mg Tablet, 1 TAB GTB DAILY PRN for constipation, TAB 02/26/19 Mirtazapine* (Mirtazapine*) 15 Mg Tablet, 15 MG GTB HS, TAB 02/26/19 Dexamethasone* (Dexamethasone*) 2 Mg Tablet, 2 MG GTB QHS, TAB 02/26/19 Zolpidem Tartrate* (Ambien*) 10 Mg Tablet, 10 MG GTB QHS PRN for INSOMNIA, TAB 02/26/19 Warfarin Sod (Coumadin) 3 Mg Tab, 4 MG GTB DAILY, TAB 02/26/19 Metoprolol Tartrate* (Lopressor*) 100 Mg Tablet, 100 MG GTB DAILY, #60 TAB 02/26/19 Levetiracetam* (Levetiracetam*) 500 Mg/5 Ml Solution, 1000 MG GTB BID, ML 02/26/19 Medications Current Medications Dextrose/Sodium Chloride 1,000 ml @ 100 mls/hr Q10H IV Last administered on 02/28/19at 04:51; Admin Dose 100 MLS/HR; Start 02/26/19 at 04:19 IV Flush (NS 3 ml) 3 ml PER PROTOCOL IV ; Start 02/26/19 at 04:30 Ondansetron HCl (Zofran Inj) 4 mg Q6H PRN IV NAUSEA/VOMITING; Start 02/26/19 at 04:30 Morphine Sulfate (morphine) 2 mg Q4H PRN IV .SEVERE PAIN 7-10 Last administered on 02/28/19at 14:57; Admin Dose 2 MG; Start 02/26/19 at 04:30 Pantoprazole (Protonix Iv) 40 mg DAILY@06 IV Last administered on 02/28/19at 04:50; Admin Dose 40 MG; Start 02/26/19 at 06:00 Albuterol/ Ipratropium (Duoneb) 3 ml Q2H RESP THERAPY PRN HHN SHORTNESS OF BREATH; Start 02/26/19 at 04:30 Levetiracetam 100 ml @ 400 mls/hr Q12 IVPB Last administered on 02/28/19at 09:56; Admin Dose 400 MLS/HR; Start 02/26/19 at 21:00 Ketorolac Tromethamine (Toradol) 15 mg Q6H PRN IV PAIN Last administered on 02/28/19at 08:32; Admin Dose 15 MG; Start 02/26/19 at 18:00; Stop 03/01/19 at 17:59 Warfarin Sodium (Coumadin) 4 mg 1700 GTB Last administered on 02/28/19at 18:56; Admin Dose 4 MG; Start 02/26/19 at 18:30 Melatonin (Melatonin) 5 mg HS PRN GTB INSOM Last administered on 02/27/19at 23:07; Admin Dose 5 MG; Start 02/26/19 at 23:30 Heparin Sodium (Porcine) (Heparin (1000 Units/ml)) 5,800 unit PER PROTOCOL PRN IV aPTT<47 Last administered on 02/28/19at 02:03; Admin Dose 5,800 UNIT; Start 02/27/19 at 19:00 Heparin Sodium (Porcine) (Heparin (1000 Units/ml)) 2,900 unit PER PROTOCOL PRN IV aPTT<47-57; Start 02/27/19 at 19:00 Heparin Sodium (Porcine) 250 ml @ 13 mls/hr PER PROTOCOL IV Last administered on 02/28/19at 01:35; Admin Dose 13 MLS/HR; Start 02/27/19 at 19:00 Acetaminophen (Tylenol Tab) 650 mg Q6H PRN PO MILD PAIN(1-3)OR ELEVATED TEMP Last administered on 02/28/19at 18:57; Admin Dose 650 MG; Start 02/27/19 at 21:30 Assessment/Plan Hospital Course (Demo Recall) 43-year-old male was brought to the emergency room because of gross hematuria. That started on 02/25/2019. The patient is known to have had heart valve replacement and has been on Coumadin. On admission to the ER his INR was over 10. He also was bleeding around the G-tube. The patient had a stroke in June 2018 and since then he has been aphasic. He does also have dysphagia and has a G-tube. There is no prior history of gross hematuria. No history of kidney stones. And he never had an indwelling Chan catheter. The irrigation was stopped yesterday and the urine turned red because he was still on anticoagulation. This morning the heparin drip was stopped because of GI procedure and his urine was clear. Presently his urine is clear. It appears that any anticoagulation is causing him to have hematuria. One has to balance the need for the anticoagulation and the risk of the hematuria. SEDA GLOVER MD Feb 28, 2019 19:46
[2019-02-28] MEDS: CITALOPRAM 20 MG TAB GTB SCH (20:30)
[2019-02-28] MEDS ORDERED: ZOLPIDEM 5 MG TAB GTB PRN (20:30)
[2019-02-28] MEDS ORDERED: SENNA TAB GTB PRN (20:30)
[2019-02-28] MEDS: DEXAMETHASONE 2 MG TAB GTB SCH (23:16)
[2019-02-28] MEDS: LEVETIRACETAM (100 MG/ML) 5ML CUP GTB SCH (23:16)
[2019-02-28] MEDS: MIRTAZAPINE 15 MG TAB GTB SCH (23:16)
[2019-03-01 02:06] VITALS: BP 105/77; PULSE 79; RESP 16
[2019-03-01] MEDS: PANTOPRAZOLE 40 MG INJ IV SCH (05:19)
[2019-03-01 08:00] VITALS: BP 100/71; PULSE 64; RESP 16
--- NOTE | 2019-03-01 08:48 | CONS ---
Consult Date/Type/Reason Admit Date/Time Feb 26, 2019 at 03:22 Initial Consult Date 02/27/19 Type of Consultation: cv Requesting Provider: MARISELA URBAN Date/Time of Note DATE: 03/01/19 TIME: 08:46 Subjective CV follow up S D/W staff no active bleeding now no cp no PND orthopnea pt is lethargic sleeping this am O: General: no acute distress HEENT: NC/AT. pupils are equal. round. NECK: no stridor. CV: RRR.+ Chemical click systolic murmur; no gallop or rubs. PULM: no wheezing or rhonchi. GI: SOFT, NT, ND, no rebound or guarding Extremity: trace B/L LE edema. no clubbing. neuro: awake and alert, with aphasia and mild right-sided weakness Psych: sleeping comfortably rectal: deferred : There is t Chan catheter in place Chest x-ray showed Mild cardiomegaly and pulmonary venous congestion echo Reviewed Objective Vitals Vital Signs Date Temp Pulse Resp B/P (MAP) Pulse Ox O2 O2 Flow FiO2 Time Delivery Rate 03/01/19 98.9 64 16 100/71 95 08:00 (81) 03/01/19 Room Air 02:06 02/28/19 10 14:15 Intake and Output 02/28/19 02/28/19 03/01/19 1515:00 23:00 07:00 IntakeIntake Total 965 ml 100 ml 91 ml OutputOutput Total 1200 ml 2250 ml BalanceBalance 965 ml -1100 ml -2159 ml Results/Medications Result Diagram: 03/01/19 0558 03/01/19 0558 Results 24 hrs Laboratory Tests Test 02/28/19 19:48 03/01/19 05:58 Activated Partial Thromboplast Time 41.5 H 164.1 *H White Blood Count 7.1 # Red Blood Count 5.04 Hemoglobin 14.6 Hematocrit 45.5 Mean Corpuscular Volume 90.3 Mean Corpuscular Hemoglobin 29.0 Mean Corpuscular Hemoglobin Concent 32.1 Red Cell Distribution Width 15.3 H Platelet Count 227 Mean Platelet Volume 9.9 Immature Granulocytes % 0.700 H Neutrophils % 85.4 H Lymphocytes % 10.9 L Monocytes % 2.8 Eosinophils % 0.1 Basophils % 0.1 Nucleated Red Blood Cells % 0.0 Immature Granulocytes # 0.050 H Neutrophils # 6.0 Lymphocytes # 0.8 Monocytes # 0.2 L Eosinophils # 0.0 Basophils # 0.0 Nucleated Red Blood Cells # 0.0 Prothrombin Time 17.5 H Prothrombin Time Ratio 1.4 INR International Normalized Ratio 1.42 Sodium Level 140 Potassium Level 4.2 Chloride Level 107 Carbon Dioxide Level 28 Anion Gap 5 Blood Urea Nitrogen 13 Creatinine 0.67 Est Glomerular Filtrat Rate mL/min > 60 Glucose Level 164 Calcium Level 8.7 Home Meds Reported Medications Atorvastatin Calcium (Atorvastatin Calcium) 10 Mg Tablet, 20 MG GTB DAILY, #30 TAB 02/26/19 Citalopram Hydrobromide* (Citalopram Hydrobromide*) 20 Mg Tablet, 20 MG GTB DAILY, #30 TAB 02/26/19 Sennosides* (Senna Lax*) 8.6 Mg Tablet, 1 TAB GTB DAILY PRN for constipation, TAB 02/26/19 Mirtazapine* (Mirtazapine*) 15 Mg Tablet, 15 MG GTB HS, TAB 02/26/19 Dexamethasone* (Dexamethasone*) 2 Mg Tablet, 2 MG GTB QHS, TAB 02/26/19 Zolpidem Tartrate* (Ambien*) 10 Mg Tablet, 10 MG GTB QHS PRN for INSOMNIA, TAB 02/26/19 Warfarin Sod (Coumadin) 3 Mg Tab, 4 MG GTB DAILY, TAB 02/26/19 Metoprolol Tartrate* (Lopressor*) 100 Mg Tablet, 100 MG GTB DAILY, #60 TAB 02/26/19 Levetiracetam* (Levetiracetam*) 500 Mg/5 Ml Solution, 1000 MG GTB BID, ML 02/26/19 Medications Current Medications IV Flush (NS 3 ml) 3 ml PER PROTOCOL IV ; Start 02/26/19 at 04:30 Ondansetron HCl (Zofran Inj) 4 mg Q6H PRN IV NAUSEA/VOMITING; Start 02/26/19 at 04:30 Morphine Sulfate (morphine) 2 mg Q4H PRN IV .SEVERE PAIN 7-10 Last administered on 02/28/19at 14:57; Admin Dose 2 MG; Start 02/26/19 at 04:30 Pantoprazole (Protonix Iv) 40 mg DAILY@06 IV Last administered on 03/01/19at 05:19; Admin Dose 40 MG; Start 02/26/19 at 06:00 Albuterol/ Ipratropium (Duoneb) 3 ml Q2H RESP THERAPY PRN HHN SHORTNESS OF BREATH; Start 02/26/19 at 04:30 Ketorolac Tromethamine (Toradol) 15 mg Q6H PRN IV PAIN Last administered on 02/28/19at 21:24; Admin Dose 15 MG; Start 02/26/19 at 18:00; Stop 03/01/19 at 17:59 Warfarin Sodium (Coumadin) 4 mg 1700 GTB Last administered on 02/28/19at 18:56; Admin Dose 4 MG; Start 02/26/19 at 18:30 Melatonin (Melatonin) 5 mg HS PRN GTB INSOM Last administered on 02/27/19at 23:07; Admin Dose 5 MG; Start 02/26/19 at 23:30 Heparin Sodium (Porcine) (Heparin (1000 Units/ml)) 5,800 unit PER PROTOCOL PRN IV aPTT<47 Last administered on 02/28/19at 02:03; Admin Dose 5,800 UNIT; Start 02/27/19 at 19:00 Heparin Sodium (Porcine) (Heparin (1000 Units/ml)) 2,900 unit PER PROTOCOL PRN IV aPTT<47-57; Start 02/27/19 at 19:00 Heparin Sodium (Porcine) 250 ml @ 13 mls/hr PER PROTOCOL IV Last administered on 02/28/19at 23:30; Admin Dose 13 MLS/HR; Start 02/27/19 at 19:00 Atorvastatin Calcium (Lipitor) 20 mg DAILY GTB ; Start 03/01/19 at 09:00 Citalopram Hydrobromide (Celexa) 20 mg DAILY GTB ; Start 02/28/19 at 20:30 Dexamethasone (Decadron) 2 mg QHS GTB Last administered on 02/28/19at 23:16; Admin Dose 2 MG; Start 02/28/19 at 21:00 Levetiracetam (Keppra Liquid) 1,000 mg BID GTB Last administered on 02/28/19at 23:16; Admin Dose 1,000 MG; Start 02/28/19 at 21:00 Metoprolol Tartrate (Lopressor) 100 mg DAILY GTB ; Start 03/01/19 at 09:00 Mirtazapine (Remeron) 15 mg HS GTB Last administered on 02/28/19at 23:16; Admin Dose 15 MG; Start 02/28/19 at 21:00 Senna (Senokot) 1 tab DAILY PRN GTB constipation; Start 02/28/19 at 20:30 Zolpidem Tartrate (Ambien) 10 mg QHS PRN GTB INSOMNIA; Start 02/28/19 at 20:30 Acetaminophen (Tylenol Liquid) 650 mg Q6 PRN GTB MILD PAIN(1-3)OR ELEVATED TEMP; Start 02/28/19 at 21:30 Assessment/Plan Hospital Course (Demo Recall) 1. Hematuria and diffuse bleeding secondary to coagulopathy 2. Severe coagulopathy probably secondary to Coumadin overdose 3. History of mechanical aortic valve replacement 4. History of CVA 5. Mild pulmonary congestion 6. PEG malfunction 7. Cardia vascular pre-evaluation for PEG replacement Recommendations: Continue with heparin drip until INR is more than 1.9, at this point heparin can be stopped and continue with the Coumadin Check daily PT/INR and adjust as needed. Adjustment as per internal medicine. 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 We will continue following with you MARIANNE AKHTAR MD [facility] MARIANNE AKHTAR MD Mar 01, 2019 08:48
[2019-03-01] MEDS: METOPROLOL 100 MG TAB GTB SCH (09:00)
[2019-03-01] MEDS: LEVETIRACETAM (100 MG/ML) 5ML CUP GTB SCH ×2 (09:35→20:30)
[2019-03-01] MEDS: ATORVASTATIN 10 MG TAB GTB SCH (09:36)
[2019-03-01] MEDS: CITALOPRAM 20 MG TAB GTB SCH (09:36)
[2019-03-01] MEDS: KETOROLAC 15 MG INJ IV PRN (12:48)
--- NOTE | 2019-03-01 13:44 | PN ---
Date/Time of Note Date/Time of Note DATE: 03/01/19 TIME: 13:42 Assessment/Plan VTE Prophylaxis Risk score (from Ns)>0 risk: 3 SCD applied (from [facility] [place] Yes Pharmacological prophylaxis: heparin Lines/Catheters IV Catheter Type (from [facility]): Peripheral IV Urinary Cath still in place: No Assessment/Plan Assessment/Plan 1. Hematuria from anticoagulant, stopped 2. s/p mechanical aortic valve replacement in 2009, on heparin drip and coumadin, follow up with INR daily 3. PEG malfunction, s/p PEG replacement on 02/28/2019, stable 4. CVA with right sided weakness in June 2018 5. History of seizures, on keppra Result Diagram: 03/01/19 0558 03/01/19 0558 Results 24hrs Laboratory Tests Test 02/28/19 19:48 03/01/19 05:58 03/01/19 10:41 Activated Partial Thromboplast Time 41.5 H 164.1 *H 153.2 *H White Blood Count 7.1 # Red Blood Count 5.04 Hemoglobin 14.6 Hematocrit 45.5 Mean Corpuscular Volume 90.3 Mean Corpuscular Hemoglobin 29.0 Mean Corpuscular Hemoglobin Concent 32.1 Red Cell Distribution Width 15.3 H Platelet Count 227 Mean Platelet Volume 9.9 Immature Granulocytes % 0.700 H Neutrophils % 85.4 H Lymphocytes % 10.9 L Monocytes % 2.8 Eosinophils % 0.1 Basophils % 0.1 Nucleated Red Blood Cells % 0.0 Immature Granulocytes # 0.050 H Neutrophils # 6.0 Lymphocytes # 0.8 Monocytes # 0.2 L Eosinophils # 0.0 Basophils # 0.0 Nucleated Red Blood Cells # 0.0 Prothrombin Time 17.5 H Prothrombin Time Ratio 1.4 INR International Normalized Ratio 1.42 Sodium Level 140 Potassium Level 4.2 Chloride Level 107 Carbon Dioxide Level 28 Anion Gap 5 Blood Urea Nitrogen 13 Creatinine 0.67 Est Glomerular Filtrat Rate mL/min > 60 Glucose Level 164 Calcium Level 8.7 Subjective 24 Hr Interval Summary Free Text/Dictation no hematuria Exam/Review of Systems Exam Vitals Vital Signs Date Temp Pulse Resp B/P (MAP) Pulse Ox O2 O2 Flow FiO2 Time Delivery Rate 03/01/19 98.9 64 16 100/71 95 08:00 (81) 03/01/19 Room Air 02:06 02/28/19 10 14:15 Intake and Output 02/28/19 02/28/19 03/01/19 1515:00 23:00 07:00 IntakeIntake Total 965 ml 100 ml 91 ml OutputOutput Total 1200 ml 2250 ml BalanceBalance 965 ml -1100 ml -2159 ml Constitutional: alert, oriented, well developed Head: normocephalic, atraumatic Eyes: nl conjunctiva, EOMI, nl lids ENMT: nl external ears & nose, nl lips & teeth, nl nasal mucosa & septum Neck: supple, non-tender Respiratory: clear to auscultation, normal air movement; No congested cough, No crackles/rales, No diminished breath sounds, No intercostal retraction, No labored breathing, No respirations, No tactile fremitus, No wheezing, No other Cardiovascular: regular rate and rhythm, nl pulses; No bruits, No diastolic murmur, No edema, No gallop, No irregular rhythm, No jugular venous distention (JVD), No murmurs/extra sounds, No rub, No systolic murmur, No S3, No S4, No other Gastrointestinal: soft, nl liver, spleen, non-tender Musculoskeletal: nl extremities to inspection Extremities: normal pulses Neurological: VICE PRESIDENT OF COMPLIANCE II-XII intact, nl mental status, nl speech, nl strength Skin: nl turgor Results Results 24hrs Laboratory Tests Test 02/28/19 19:48 03/01/19 05:58 03/01/19 10:41 Activated Partial Thromboplast Time 41.5 H 164.1 *H 153.2 *H White Blood Count 7.1 # Red Blood Count 5.04 Hemoglobin 14.6 Hematocrit 45.5 Mean Corpuscular Volume 90.3 Mean Corpuscular Hemoglobin 29.0 Mean Corpuscular Hemoglobin Concent 32.1 Red Cell Distribution Width 15.3 H Platelet Count 227 Mean Platelet Volume 9.9 Immature Granulocytes % 0.700 H Neutrophils % 85.4 H Lymphocytes % 10.9 L Monocytes % 2.8 Eosinophils % 0.1 Basophils % 0.1 Nucleated Red Blood Cells % 0.0 Immature Granulocytes # 0.050 H Neutrophils # 6.0 Lymphocytes # 0.8 Monocytes # 0.2 L Eosinophils # 0.0 Basophils # 0.0 Nucleated Red Blood Cells # 0.0 Prothrombin Time 17.5 H Prothrombin Time Ratio 1.4 INR International Normalized Ratio 1.42 Sodium Level 140 Potassium Level 4.2 Chloride Level 107 Carbon Dioxide Level 28 Anion Gap 5 Blood Urea Nitrogen 13 Creatinine 0.67 Est Glomerular Filtrat Rate mL/min > 60 Glucose Level 164 Calcium Level 8.7 Medications Medication Current Medications IV Flush (NS 3 ml) 3 ml PER PROTOCOL IV ; Start 02/26/19 at 04:30 Ondansetron HCl (Zofran Inj) 4 mg Q6H PRN IV NAUSEA/VOMITING; Start 02/26/19 at 04:30 Morphine Sulfate (morphine) 2 mg Q4H PRN IV .SEVERE PAIN 7-10 Last administered on 02/28/19at 14:57; Admin Dose 2 MG; Start 02/26/19 at 04:30 Pantoprazole (Protonix Iv) 40 mg DAILY@06 IV Last administered on 03/01/19at 05:19; Admin Dose 40 MG; Start 02/26/19 at 06:00 Albuterol/ Ipratropium (Duoneb) 3 ml Q2H RESP THERAPY PRN HHN SHORTNESS OF BREATH; Start 02/26/19 at 04:30 Ketorolac Tromethamine (Toradol) 15 mg Q6H PRN IV PAIN Last administered on 03/01/19at 12:48; Admin Dose 15 MG; Start 02/26/19 at 18:00; Stop 03/01/19 at 17:59 Warfarin Sodium (Coumadin) 4 mg 1700 GTB Last administered on 02/28/19at 18:56; Admin Dose 4 MG; Start 02/26/19 at 18:30 Melatonin (Melatonin) 5 mg HS PRN GTB INSOM Last administered on 02/27/19at 23:07; Admin Dose 5 MG; Start 02/26/19 at 23:30 Heparin Sodium (Porcine) (Heparin (1000 Units/ml)) 5,800 unit PER PROTOCOL PRN IV aPTT<47 Last administered on 02/28/19at 02:03; Admin Dose 5,800 UNIT; Start 02/27/19 at 19:00 Heparin Sodium (Porcine) (Heparin (1000 Units/ml)) 2,900 unit PER PROTOCOL PRN IV aPTT<47-57; Start 02/27/19 at 19:00 Heparin Sodium (Porcine) 250 ml @ 13 mls/hr PER PROTOCOL IV Last administered on 02/28/19at 23:30; Admin Dose 13 MLS/HR; Start 02/27/19 at 19:00 Atorvastatin Calcium (Lipitor) 20 mg DAILY GTB Last administered on 03/01/19at 09:36; Admin Dose 20 MG; Start 03/01/19 at 09:00 Citalopram Hydrobromide (Celexa) 20 mg DAILY GTB Last administered on 03/01/19at 09:36; Admin Dose 20 MG; Start 02/28/19 at 20:30 Dexamethasone (Decadron) 2 mg QHS GTB Last administered on 02/28/19at 23:16; Admin Dose 2 MG; Start 02/28/19 at 21:00 Levetiracetam (Keppra Liquid) 1,000 mg BID GTB Last administered on 03/01/19at 09:35; Admin Dose 1,000 MG; Start 02/28/19 at 21:00 Metoprolol Tartrate (Lopressor) 100 mg DAILY GTB ; Start 03/01/19 at 09:00 Mirtazapine (Remeron) 15 mg HS GTB Last administered on 02/28/19at 23:16; Admin Dose 15 MG; Start 02/28/19 at 21:00 Senna (Senokot) 1 tab DAILY PRN GTB constipation; Start 02/28/19 at 20:30 Zolpidem Tartrate (Ambien) 10 mg QHS PRN GTB INSOMNIA; Start 02/28/19 at 20:30 Acetaminophen (Tylenol Liquid) 650 mg Q6 PRN GTB MILD PAIN(1-3)OR ELEVATED TEMP; Start 02/28/19 at 21:30 SG PHILLIPS MD Mar 01, 2019 13:44
--- NOTE | 2019-03-01 13:46 | PN ---
Date/Time of Note Date/Time of Note DATE: 03/01/19 TIME: 13:41 Assessment/Plan VTE Prophylaxis Risk score (from Ns)>0 risk: 3 SCD applied (from Nsg): Yes Pharmacological prophylaxis: heparin Lines/Catheters IV Catheter Type (from Nrsg): Peripheral IV Urinary Cath still in place: Yes Reason Cath still needed: other (indicate) (monitor output) Assessment/Plan Hospital Course Summary Assessment and Plan: Assessment: Bleeding and subjective greenish discharge at gastrostomy tube site -02/28/19 EGD with gastrostomy tube exchange- no EGD Hematuria H/o CVA in June 2018 -dysphasia and dysphagia requiring G-tube Cardiac valve replacement in 2009 -on Coumadin Serotherapeutic INR on admission >10.0- corrected Plan: TF to goal PEG care daily and PRN GI will sign off but will be available upon reconsult as needed Patient seen in collaboration with Dr. Ro Subjective: Course reviewed with nursing staff Patient interviewed and examined All labs, imaging and other results reviewed No over night events, s/p g-tube exchange No further bleeding at g-tube site. No c/o n/v Exam PHYSICAL EXAMINATION: GENERAL: Alert, aphasic, in no acute distress SKIN: No lesions HEAD: Normocephalic, atraumatic, no tenderness. EYES: Pupils equal reactive to light and accommodation, no discharge. EARS/NOSE AND THROAT: Ears normal, nose normal NECK: Supple, no masses CHEST: Inspection within normal limits. CARDIOVASCULAR: Heart: Regular rate and rhythm RESPIRATORY: Lungs clear to auscultation GASTROINTESTINAL AND LIVER: Abdomen: Soft, non tenderness, g-tube, non- distended, no hernias, no masses, Hepatomegaly,, no rebound tenderness, n ormoactive bowel sounds. Rectal: Deferred. EXTREMITIES: No cyanosis, clubbing or edema. Result Diagram: 03/01/19 0558 03/01/19 0558 Results 24hrs Laboratory Tests Test 02/28/19 19:48 03/01/19 05:58 03/01/19 10:41 Activated Partial Thromboplast Time 41.5 H 164.1 *H 153.2 *H White Blood Count 7.1 # Red Blood Count 5.04 Hemoglobin 14.6 Hematocrit 45.5 Mean Corpuscular Volume 90.3 Mean Corpuscular Hemoglobin 29.0 Mean Corpuscular Hemoglobin Concent 32.1 Red Cell Distribution Width 15.3 H Platelet Count 227 Mean Platelet Volume 9.9 Immature Granulocytes % 0.700 H Neutrophils % 85.4 H Lymphocytes % 10.9 L Monocytes % 2.8 Eosinophils % 0.1 Basophils % 0.1 Nucleated Red Blood Cells % 0.0 Immature Granulocytes # 0.050 H Neutrophils # 6.0 Lymphocytes # 0.8 Monocytes # 0.2 L Eosinophils # 0.0 Basophils # 0.0 Nucleated Red Blood Cells # 0.0 Prothrombin Time 17.5 H Prothrombin Time Ratio 1.4 INR International Normalized Ratio 1.42 Sodium Level 140 Potassium Level 4.2 Chloride Level 107 Carbon Dioxide Level 28 Anion Gap 5 Blood Urea Nitrogen 13 Creatinine 0.67 Est Glomerular Filtrat Rate mL/min > 60 Glucose Level 164 Calcium Level 8.7 Exam/Review of Systems Exam Vitals Vital Signs Date Temp Pulse Resp B/P (MAP) Pulse Ox O2 O2 Flow FiO2 Time Delivery Rate 03/01/19 98.9 64 16 100/71 95 08:00 (81) 03/01/19 Room Air 02:06 02/28/19 10 14:15 Intake and Output 02/28/19 02/28/19 03/01/19 1515:00 23:00 07:00 IntakeIntake Total 965 ml 100 ml 91 ml OutputOutput Total 1200 ml 2250 ml BalanceBalance 965 ml -1100 ml -2159 ml Results Results 24hrs Laboratory Tests Test 02/28/19 19:48 03/01/19 05:58 03/01/19 10:41 Activated Partial Thromboplast Time 41.5 H 164.1 *H 153.2 *H White Blood Count 7.1 # Red Blood Count 5.04 Hemoglobin 14.6 Hematocrit 45.5 Mean Corpuscular Volume 90.3 Mean Corpuscular Hemoglobin 29.0 Mean Corpuscular Hemoglobin Concent 32.1 Red Cell Distribution Width 15.3 H Platelet Count 227 Mean Platelet Volume 9.9 Immature Granulocytes % 0.700 H Neutrophils % 85.4 H Lymphocytes % 10.9 L Monocytes % 2.8 Eosinophils % 0.1 Basophils % 0.1 Nucleated Red Blood Cells % 0.0 Immature Granulocytes # 0.050 H Neutrophils # 6.0 Lymphocytes # 0.8 Monocytes # 0.2 L Eosinophils # 0.0 Basophils # 0.0 Nucleated Red Blood Cells # 0.0 Prothrombin Time 17.5 H Prothrombin Time Ratio 1.4 INR International Normalized Ratio 1.42 Sodium Level 140 Potassium Level 4.2 Chloride Level 107 Carbon Dioxide Level 28 Anion Gap 5 Blood Urea Nitrogen 13 Creatinine 0.67 Est Glomerular Filtrat Rate mL/min > 60 Glucose Level 164 Calcium Level 8.7 Medications Medication Current Medications IV Flush (NS 3 ml) 3 ml PER PROTOCOL IV ; Start 02/26/19 at 04:30 Ondansetron HCl (Zofran Inj) 4 mg Q6H PRN IV NAUSEA/VOMITING; Start 02/26/19 at 04:30 Morphine Sulfate (morphine) 2 mg Q4H PRN IV .SEVERE PAIN 7-10 Last administered on 02/28/19at 14:57; Admin Dose 2 MG; Start 02/26/19 at 04:30 Pantoprazole (Protonix Iv) 40 mg DAILY@06 IV Last administered on 03/01/19at 05:19; Admin Dose 40 MG; Start 02/26/19 at 06:00 Albuterol/ Ipratropium (Duoneb) 3 ml Q2H RESP THERAPY PRN HHN SHORTNESS OF BREATH; Start 02/26/19 at 04:30 Ketorolac Tromethamine (Toradol) 15 mg Q6H PRN IV PAIN Last administered on 03/01/19at 12:48; Admin Dose 15 MG; Start 02/26/19 at 18:00; Stop 03/01/19 at 17:59 Warfarin Sodium (Coumadin) 4 mg 1700 GTB Last administered on 02/28/19at 18:56; Admin Dose 4 MG; Start 02/26/19 at 18:30 Melatonin (Melatonin) 5 mg HS PRN GTB INSOM Last administered on 02/27/19at 23:07; Admin Dose 5 MG; Start 02/26/19 at 23:30 Heparin Sodium (Porcine) (Heparin (1000 Units/ml)) 5,800 unit PER PROTOCOL PRN IV aPTT<47 Last administered on 02/28/19at 02:03; Admin Dose 5,800 UNIT; Start 02/27/19 at 19:00 Heparin Sodium (Porcine) (Heparin (1000 Units/ml)) 2,900 unit PER PROTOCOL PRN IV aPTT<47-57; Start 02/27/19 at 19:00 Heparin Sodium (Porcine) 250 ml @ 13 mls/hr PER PROTOCOL IV Last administered on 02/28/19at 23:30; Admin Dose 13 MLS/HR; Start 02/27/19 at 19:00 Atorvastatin Calcium (Lipitor) 20 mg DAILY GTB Last administered on 03/01/19 09:36; Admin Dose 20 MG; Start 03/01/19 at 09:00 Citalopram Hydrobromide (Celexa) 20 mg DAILY GTB Last administered on 03/01/19at 09:36; Admin Dose 20 MG; Start 02/28/19 at 20:30 Dexamethasone (Decadron) 2 mg QHS GTB Last administered on 02/28/19at 23:16; Admin Dose 2 MG; Start 02/28/19 at 21:00 Levetiracetam (Keppra Liquid) 1,000 mg BID GTB Last administered on 03/01/19at 09:35; Admin Dose 1,000 MG; Start 02/28/19 at 21:00 Metoprolol Tartrate (Lopressor) 100 mg DAILY GTB ; Start 03/01/19 at 09:00 Mirtazapine (Remeron) 15 mg HS GTB Last administered on 02/28/19at 23:16; Admin Dose 15 MG; Start 02/28/19 at 21:00 Senna (Senokot) 1 tab DAILY PRN GTB constipation; Start 02/28/19 at 20:30 Zolpidem Tartrate (Ambien) 10 mg QHS PRN GTB INSOMNIA; Start 02/28/19 at 20:30 Acetaminophen (Tylenol Liquid) 650 mg Q6 PRN GTB MILD PAIN(1-3)OR ELEVATED TEMP; Start 02/28/19 at 21:30 DEANDRE PHILLIPS Mar 01, 2019 13:46
[2019-03-01 14:00] VITALS: BP 105/70; PULSE 72; RESP 16
[2019-03-01] MEDS: WARFARIN 2 MG TAB GTB SCH (17:16)
[2019-03-01] MEDS: morphine 2 MG INJ IV PRN ×2 (17:17→21:34)
[2019-03-01 19:21] VITALS: BP 112/75; PULSE 65; RESP 17
--- NOTE | 2019-03-01 19:40 | CONS ---
Consult Date/Type/Reason Admit Date/Time Feb 26, 2019 at 03:22 Initial Consult Date 02/26/19 Type of Consultation: Urology Reason for Consultation Gross hematuria Requesting Provider: MARISELA URBAN Date/Time of Note DATE: 03/01/19 TIME: 19:30 Subjective The patient is aphasic but his sitter tells me that he is complaining of headaches Objective Vitals Vital Signs Date Temp Pulse Resp B/P (MAP) Pulse Ox O2 O2 Flow FiO2 Time Delivery Rate 03/01/19 97.8 65 17 112/75 96 19:21 (87) 03/01/19 Room Air 02:06 02/28/19 10 14:15 Intake and Output 02/28/19 02/28/19 03/01/19 1414:59 22:59 06:59 IntakeIntake Total 965 ml 100 ml 91 ml OutputOutput Total 1200 ml 2250 ml BalanceBalance 965 ml -1100 ml -2159 ml Exam The abdomen is soft. He does have pads on. His Chan catheter was removed this morning and it is reported that he has been voiding. Results/Medications Result Diagram: 03/01/19 0558 03/01/19 0558 Results 24 hrs Laboratory Tests Test 02/28/19 19:48 03/01/19 05:58 03/01/19 10:41 03/01/19 17:04 Activated 41.5 H 164.1 *H 153.2 *H 106.5 *H Partial Thromboplast Time White Blood Count 7.1 # Red Blood Count 5.04 Hemoglobin 14.6 Hematocrit 45.5 Mean Corpuscular 90.3 Volume Mean Corpuscular 29.0 Hemoglobin Mean Corpuscular 32.1 Hemoglobin Concent Red Cell 15.3 H Distribution Width Platelet Count 227 Mean Platelet Volume 9.9 Immature 0.700 H Granulocytes % Neutrophils % 85.4 H Lymphocytes % 10.9 L Monocytes % 2.8 Eosinophils % 0.1 Basophils % 0.1 Nucleated Red Blood 0.0 Cells % Immature 0.050 H Granulocytes # Neutrophils # 6.0 Lymphocytes # 0.8 Monocytes # 0.2 L Eosinophils # 0.0 Basophils # 0.0 Nucleated Red Blood 0.0 Cells # Prothrombin Time 17.5 H Prothrombin Time 1.4 Ratio INR International 1.42 Normalized Ratio Sodium Level 140 Potassium Level 4.2 Chloride Level 107 Carbon Dioxide Level 28 Anion Gap 5 Blood Urea Nitrogen 13 Creatinine 0.67 Est Glomerular > 60 Filtrat Rate mL/min Glucose Level 164 Calcium Level 8.7 Home Meds Reported Medications Atorvastatin Calcium (Atorvastatin Calcium) 10 Mg Tablet, 20 MG GTB DAILY, #30 TAB 02/26/19 Citalopram Hydrobromide* (Citalopram Hydrobromide*) 20 Mg Tablet, 20 MG GTB DAILY, #30 TAB 02/26/19 Sennosides* (Senna Lax*) 8.6 Mg Tablet, 1 TAB GTB DAILY PRN for constipation, TAB 02/26/19 Mirtazapine* (Mirtazapine*) 15 Mg Tablet, 15 MG GTB HS, TAB 02/26/19 Dexamethasone* (Dexamethasone*) 2 Mg Tablet, 2 MG GTB QHS, TAB 02/26/19 Zolpidem Tartrate* (Ambien*) 10 Mg Tablet, 10 MG GTB QHS PRN for INSOMNIA, TAB 02/26/19 Warfarin Sod (Coumadin) 3 Mg Tab, 4 MG GTB DAILY, TAB 02/26/19 Metoprolol Tartrate* (Lopressor*) 100 Mg Tablet, 100 MG GTB DAILY, #60 TAB 02/26/19 Levetiracetam* (Levetiracetam*) 500 Mg/5 Ml Solution, 1000 MG GTB BID, ML 02/26/19 Medications Current Medications IV Flush (NS 3 ml) 3 ml PER PROTOCOL IV ; Start 02/26/19 at 04:30 Ondansetron HCl (Zofran Inj) 4 mg Q6H PRN IV NAUSEA/VOMITING; Start 02/26/19 at 04:30 Morphine Sulfate (morphine) 2 mg Q4H PRN IV .SEVERE PAIN 7-10 Last administered on 03/01/19at 17:17; Admin Dose 2 MG; Start 02/26/19 at 04:30 Pantoprazole (Protonix Iv) 40 mg DAILY@06 IV Last administered on 03/01/19at 05:19; Admin Dose 40 MG; Start 02/26/19 at 06:00 Albuterol/ Ipratropium (Duoneb) 3 ml Q2H RESP THERAPY PRN HHN SHORTNESS OF BREATH; Start 02/26/19 at 04:30 Warfarin Sodium (Coumadin) 4 mg 1700 GTB Last administered on 03/01/19 17:16; Admin Dose 4 MG; Start 02/26/19 at 18:30 Melatonin (Melatonin) 5 mg HS PRN GTB INSOM Last administered on 02/27/19at 23:07; Admin Dose 5 MG; Start 02/26/19 at 23:30 Heparin Sodium (Porcine) (Heparin (1000 Units/ml)) 5,800 unit PER PROTOCOL PRN IV aPTT<47 Last administered on 02/28/19at 02:03; Admin Dose 5,800 UNIT; Start 02/27/19 at 19:00 Heparin Sodium (Porcine) (Heparin (1000 Units/ml)) 2,900 unit PER PROTOCOL PRN IV aPTT<47-57; Start 02/27/19 at 19:00 Heparin Sodium (Porcine) 250 ml @ 13 mls/hr PER PROTOCOL IV Last administered on 02/28/19 23:30; Admin Dose 13 MLS/HR; Start 02/27/19 at 19:00 Atorvastatin Calcium (Lipitor) 20 mg DAILY GTB Last administered on 03/01/19 09:36; Admin Dose 20 MG; Start 03/01/19 at 09:00 Citalopram Hydrobromide (Celexa) 20 mg DAILY GTB Last administered on 03/01/19 09:36; Admin Dose 20 MG; Start 02/28/19 at 20:30 Dexamethasone (Decadron) 2 mg QHS GTB Last administered on 02/28/19 23:16; Admin Dose 2 MG; Start 02/28/19 at 21:00 Levetiracetam (Keppra Liquid) 1,000 mg BID GTB Last administered on 03/01/19 09:35; Admin Dose 1,000 MG; Start 02/28/19 at 21:00 Metoprolol Tartrate (Lopressor) 100 mg DAILY GTB ; Start 03/01/19 at 09:00 Mirtazapine (Remeron) 15 mg HS GTB Last administered on 02/28/19at 23:16; Admin Dose 15 MG; Start 02/28/19 at 21:00 Senna (Senokot) 1 tab DAILY PRN GTB constipation; Start 02/28/19 at 20:30 Zolpidem Tartrate (Ambien) 10 mg QHS PRN GTB INSOMNIA; Start 02/28/19 at 20:30 Acetaminophen (Tylenol Liquid) 650 mg Q6 PRN GTB MILD PAIN(1-3)OR ELEVATED TEMP; Start 02/28/19 at 21:30 Assessment/Plan Hospital Course (Demo Recall) 43-year-old male was brought to the emergency room because of gross hematuria. That started on 02/25/2019. The patient is known to have had heart valve replacement and has been on Coumadin. On admission to the ER his INR was over 10. He also was bleeding around the G-tube. The patient had a stroke in June 2018 and since then he has been aphasic. He does also have dysphagia and has a G-tube. There is no prior history of gross hematuria. No history of kidney stones. And he never had an indwelling Chan catheter. Since the patient was transferred to [facility]. it has been reported that his urine is not bloody. The Chan catheter was removed earlier today and the patient has voided 350 mL. The patient presently is on Coumadin per the G-tube and heparin IV. We will check his postvoid residual and monitor the color of his urine. I just did a bladder scan on him and the bladder has only 107 ml SEDA GLOVER MD Mar 01, 2019 19:40
[2019-03-01] MEDS: DEXAMETHASONE 2 MG TAB GTB SCH (20:30)
[2019-03-01] MEDS: MIRTAZAPINE 15 MG TAB GTB SCH (20:30)
[2019-03-02 01:43] VITALS: BP 90/53; PULSE 68; RESP 15
[2019-03-02] MEDS: morphine 2 MG INJ IV PRN ×3 (02:55→20:05)
[2019-03-02] MEDS: HEPARIN 25000 UNITS/250 ML 250 ML IV SCH (03:19)
[2019-03-02] MEDS: PANTOPRAZOLE 40 MG INJ IV SCH (05:44)
[2019-03-02 08:09] VITALS: BP 93/58; PULSE 56; RESP 16
[2019-03-02] MEDS: LEVETIRACETAM (100 MG/ML) 5ML CUP GTB SCH ×2 (08:24→20:04)
[2019-03-02] MEDS: CITALOPRAM 20 MG TAB GTB SCH (08:24)
[2019-03-02] MEDS: METOPROLOL 100 MG TAB GTB SCH (08:25)
[2019-03-02] MEDS: ATORVASTATIN 10 MG TAB GTB SCH (08:25)
--- NOTE | 2019-03-02 08:31 | CONS ---
Consult Date/Type/Reason Admit Date/Time Feb 26, 2019 at 03:22 Initial Consult Date 02/27/19 Type of Consultation: CV Requesting Provider: MARISELA URBAN Date/Time of Note DATE: 03/02/19 TIME: 08:29 Subjective CV follow up S D/W staff no active bleeding now no cp no PND orthopnea O: General: no acute distress HEENT: NC/AT. pupils are equal. round. NECK: no stridor. CV: RRR.+ Chemical click systolic murmur; no gallop or rubs. PULM: no wheezing or rhonchi. GI: SOFT, NT, ND, no rebound or guarding Extremity: trace B/L LE edema. no clubbing. neuro: awake and alert, with aphasia and mild right-sided weakness Psych: CALM rectal: deferred : andersen removed Chest x-ray showed Mild cardiomegaly and pulmonary venous congestion echo Reviewed. see my report Objective Vitals Vital Signs Date Temp Pulse Resp B/P (MAP) Pulse Ox O2 O2 Flow FiO2 Time Delivery Rate 03/02/19 97.8 56 16 93/58 (70) 94 Room Air 08:09 02/28/19 10 14:15 Intake and Output 03/01/19 03/01/19 03/02/19 1515:00 23:00 07:00 IntakeIntake Total 40.4 ml 49.14 ml 84.97 ml OutputOutput Total 350 ml BalanceBalance -309.6 ml 49.14 ml 84.97 ml Results/Medications Result Diagram: 03/01/19 0558 03/01/19 0558 Results 24 hrs Laboratory Tests Test 03/01/19 10:41 03/01/19 17:04 03/02/19 00:09 03/02/19 07:03 Activated 153.2 *H 106.5 *H 107.7 *H 92.3 *H Partial Thromboplast Time Prothrombin Time 21.2 #H Prothrombin Time 1.7 Ratio INR International 1.82 Normalized Ratio Home Meds Reported Medications Atorvastatin Calcium (Atorvastatin Calcium) 10 Mg Tablet, 20 MG GTB DAILY, #30 TAB 02/26/19 Citalopram Hydrobromide* (Citalopram Hydrobromide*) 20 Mg Tablet, 20 MG GTB DAILY, #30 TAB 02/26/19 Sennosides* (Senna Lax*) 8.6 Mg Tablet, 1 TAB GTB DAILY PRN for constipation, TAB 02/26/19 Mirtazapine* (Mirtazapine*) 15 Mg Tablet, 15 MG GTB HS, TAB 02/26/19 Dexamethasone* (Dexamethasone*) 2 Mg Tablet, 2 MG GTB QHS, TAB 02/26/19 Zolpidem Tartrate* (Ambien*) 10 Mg Tablet, 10 MG GTB QHS PRN for INSOMNIA, TAB 02/26/19 Warfarin Sod (Coumadin) 3 Mg Tab, 4 MG GTB DAILY, TAB 02/26/19 Metoprolol Tartrate* (Lopressor*) 100 Mg Tablet, 100 MG GTB DAILY, #60 TAB 02/26/19 Levetiracetam* (Levetiracetam*) 500 Mg/5 Ml Solution, 1000 MG GTB BID, ML 02/26/19 Medications Current Medications IV Flush (NS 3 ml) 3 ml PER PROTOCOL IV ; Start 02/26/19 at 04:30 Ondansetron HCl (Zofran Inj) 4 mg Q6H PRN IV NAUSEA/VOMITING; Start 02/26/19 at 04:30 Morphine Sulfate (morphine) 2 mg Q4H PRN IV .SEVERE PAIN 7-10 Last administered on 03/02/19at 02:55; Admin Dose 2 MG; Start 02/26/19 at 04:30 Pantoprazole (Protonix Iv) 40 mg DAILY@06 IV Last administered on 03/02/19at 05:44; Admin Dose 40 MG; Start 02/26/19 at 06:00 Albuterol/ Ipratropium (Duoneb) 3 ml Q2H RESP THERAPY PRN HHN SHORTNESS OF BREATH; Start 02/26/19 at 04:30 Warfarin Sodium (Coumadin) 4 mg 1700 GTB Last administered on 03/01/19at 17:16; Admin Dose 4 MG; Start 02/26/19 at 18:30 Melatonin (Melatonin) 5 mg HS PRN GTB INSOM Last administered on 02/27/19at 23:07; Admin Dose 5 MG; Start 02/26/19 at 23:30 Heparin Sodium (Porcine) (Heparin (1000 Units/ml)) 5,800 unit PER PROTOCOL PRN IV aPTT<47 Last administered on 7/23/19at 02:03; Admin Dose 5,800 UNIT; Start 02/27/19 at 19:00 Heparin Sodium (Porcine) (Heparin (1000 Units/ml)) 2,900 unit PER PROTOCOL PRN IV aPTT<47-57; Start 02/27/19 at 19:00 Heparin Sodium (Porcine) 250 ml @ 13 mls/hr PER PROTOCOL IV Last administered on 03/02/19 03:19; Admin Dose 7 MLS/HR; Start 02/27/19 at 19:00 Atorvastatin Calcium (Lipitor) 20 mg DAILY GTB Last administered on 03/01/19 09:36; Admin Dose 20 MG; Start 03/01/19 at 09:00 Citalopram Hydrobromide (Celexa) 20 mg DAILY GTB Last administered on 03/01/19 09:36; Admin Dose 20 MG; Start 02/28/19 at 20:30 Dexamethasone (Decadron) 2 mg QHS GTB Last administered on 03/01/19 20:30; Admin Dose 2 MG; Start 02/28/19 at 21:00 Levetiracetam (Keppra Liquid) 1,000 mg BID GTB Last administered on 03/01/19 20:30; Admin Dose 1,000 MG; Start 02/28/19 at 21:00 Metoprolol Tartrate (Lopressor) 100 mg DAILY GTB ; Start 03/01/19 at 09:00 Mirtazapine (Remeron) 15 mg HS GTB Last administered on 03/01/19 20:30; Admin Dose 15 MG; Start 02/28/19 at 21:00 Senna (Senokot) 1 tab DAILY PRN GTB constipation; Start 02/28/19 at 20:30 Zolpidem Tartrate (Ambien) 10 mg QHS PRN GTB INSOMNIA; Start 02/28/19 at 20:30 Acetaminophen (Tylenol Liquid) 650 mg Q6 PRN GTB MILD PAIN(1-3)OR ELEVATED TEMP; Start 02/28/19 at 21:30 Assessment/Plan Hospital Course (Demo Recall) 1. Hematuria and diffuse bleeding secondary to coagulopathy 2. Severe coagulopathy probably secondary to Coumadin overdose 3. History of mechanical aortic valve replacement 4. History of CVA 5. Mild pulmonary congestion 6. PEG malfunction 7. Cardia vascular pre-evaluation for PEG replacement Recommendations: cont coumadin. Check daily PT/INR and adjust as needed. Adjustment as per internal medicine. f/u with & GI rec Outpatient follow-up with his regular basket person Dr.Fakheri Bains for discharge from cardiac standpoint as long as patient has a very close follow-up on his INR and adjustment of Coumadin. Consider referral to Coumadin clinic if that is available Thank you for his referral. MARIANNE AKHTAR MD [facility] MARIANNE AKHTAR MD Mar 02, 2019 08:31
--- NOTE | 2019-03-02 08:33 | CONS ---
Consult Date/Type/Reason Admit Date/Time Feb 26, 2019 at 03:22 Initial Consult Date 02/26/19 Type of Consultation: Urology Reason for Consultation Hematuria Requesting Provider: MARISELA URBAN Date/Time of Note DATE: 03/02/19 TIME: 08:29 Subjective Patient is aphasic. His sitter at his bedside and states that he has been up and walking around. Nurses note that he has voided and the urine was blood- tinged Objective Vitals Vital Signs Date Temp Pulse Resp B/P (MAP) Pulse Ox O2 O2 Flow FiO2 Time Delivery Rate 03/02/19 97.8 56 16 93/58 (70) 94 Room Air 08:09 02/28/19 10 14:15 Intake and Output 03/01/19 03/01/19 03/02/19 1414:59 22:59 06:59 IntakeIntake Total 40.4 ml 49.14 ml 84.97 ml OutputOutput Total 350 ml BalanceBalance -309.6 ml 49.14 ml 84.97 ml Exam The abdomen is soft. The bladder is not distended. Results/Medications Result Diagram: 03/01/19 0558 03/01/19 0558 Results 24 hrs Laboratory Tests Test 03/01/19 10:41 03/01/19 17:04 03/02/19 00:09 03/02/19 07:03 Activated 153.2 *H 106.5 *H 107.7 *H 92.3 *H Partial Thromboplast Time Prothrombin Time 21.2 #H Prothrombin Time 1.7 Ratio INR International 1.82 Normalized Ratio Home Meds Reported Medications Atorvastatin Calcium (Atorvastatin Calcium) 10 Mg Tablet, 20 MG GTB DAILY, #30 TAB 02/26/19 Citalopram Hydrobromide* (Citalopram Hydrobromide*) 20 Mg Tablet, 20 MG GTB DAILY, #30 TAB 02/26/19 Sennosides* (Senna Lax*) 8.6 Mg Tablet, 1 TAB GTB DAILY PRN for constipation, TAB 02/26/19 Mirtazapine* (Mirtazapine*) 15 Mg Tablet, 15 MG GTB HS, TAB 02/26/19 Dexamethasone* (Dexamethasone*) 2 Mg Tablet, 2 MG GTB QHS, TAB 02/26/19 Zolpidem Tartrate* (Ambien*) 10 Mg Tablet, 10 MG GTB QHS PRN for INSOMNIA, TAB 02/26/19 Warfarin Sod (Coumadin) 3 Mg Tab, 4 MG GTB DAILY, TAB 02/26/19 Metoprolol Tartrate* (Lopressor*) 100 Mg Tablet, 100 MG GTB DAILY, #60 TAB 02/26/19 Levetiracetam* (Levetiracetam*) 500 Mg/5 Ml Solution, 1000 MG GTB BID, ML 02/26/19 Medications Current Medications IV Flush (NS 3 ml) 3 ml PER PROTOCOL IV ; Start 02/26/19 at 04:30 Ondansetron HCl (Zofran Inj) 4 mg Q6H PRN IV NAUSEA/VOMITING; Start 02/26/19 at 04:30 Morphine Sulfate (morphine) 2 mg Q4H PRN IV .SEVERE PAIN 7-10 Last administered on 03/02/19at 02:55; Admin Dose 2 MG; Start 02/26/19 at 04:30 Pantoprazole (Protonix Iv) 40 mg DAILY@06 IV Last administered on 03/02/19at 05:44; Admin Dose 40 MG; Start 02/26/19 at 06:00 Albuterol/ Ipratropium (Duoneb) 3 ml Q2H RESP THERAPY PRN HHN SHORTNESS OF BREATH; Start 02/26/19 at 04:30 Warfarin Sodium (Coumadin) 4 mg 1700 GTB Last administered on 03/01/19at 17:16; Admin Dose 4 MG; Start 02/26/19 at 18:30 Melatonin (Melatonin) 5 mg HS PRN GTB INSOM Last administered on 02/27/19at 23:07; Admin Dose 5 MG; Start 02/26/19 at 23:30 Heparin Sodium (Porcine) (Heparin (1000 Units/ml)) 5,800 unit PER PROTOCOL PRN IV aPTT<47 Last administered on 02/28/19at 02:03; Admin Dose 5,800 UNIT; Start 02/27/19 at 19:00 Heparin Sodium (Porcine) (Heparin (1000 Units/ml)) 2,900 unit PER PROTOCOL PRN IV aPTT<47-57; Start 02/27/19 at 19:00 Heparin Sodium (Porcine) 250 ml @ 13 mls/hr PER PROTOCOL IV Last administered on 03/02/19at 03:19; Admin Dose 7 MLS/HR; Start 02/27/19 at 19:00 Atorvastatin Calcium (Lipitor) 20 mg DAILY GTB Last administered on 03/01/19 09:36; Admin Dose 20 MG; Start 03/01/19 at 09:00 Citalopram Hydrobromide (Celexa) 20 mg DAILY GTB Last administered on 03/01/19 09:36; Admin Dose 20 MG; Start 02/28/19 at 20:30 Dexamethasone (Decadron) 2 mg QHS GTB Last administered on 03/01/19at 20:30; Admin Dose 2 MG; Start 02/28/19 at 21:00 Levetiracetam (Keppra Liquid) 1,000 mg BID GTB Last administered on 03/01/19 20:30; Admin Dose 1,000 MG; Start 02/28/19 at 21:00 Metoprolol Tartrate (Lopressor) 100 mg DAILY GTB ; Start 03/01/19 at 09:00 Mirtazapine (Remeron) 15 mg HS GTB Last administered on 03/01/19at 20:30; Admin Dose 15 MG; Start 02/28/19 at 21:00 Senna (Senokot) 1 tab DAILY PRN GTB constipation; Start 02/28/19 at 20:30 Zolpidem Tartrate (Ambien) 10 mg QHS PRN GTB INSOMNIA; Start 02/28/19 at 20:30 Acetaminophen (Tylenol Liquid) 650 mg Q6 PRN GTB MILD PAIN(1-3)OR ELEVATED TEMP; Start 02/28/19 at 21:30 Assessment/Plan Hospital Course (Demo Recall) 43-year-old male was brought to the emergency room because of gross hematuria. That started on 02/25/2019. The patient is known to have had heart valve replacement and has been on Coumadin. On admission to the ER his INR was over 10. He also was bleeding around the G-tube. The patient had a stroke in June 2018 and since then he has been aphasic. He does also have dysphagia and has a G-tube. There is no prior history of gross hematuria. No history of kidney stones. And he never had an indwelling Chan catheter. The Chan catheter that he had was removed and he has been voiding. His urine has been reported clear to blood-tinged. Presently he is on heparin IV and also on Coumadin. His INR is 1.82 and the APTT is 92.3. We will continue to monitor the color of his urine and check his postvoid residual to make sure that he does not empty his bladder well. SEDA GLOVER MD Mar 02, 2019 08:33
[2019-03-02 09:39] VITALS: BMI 27.0
[2019-03-02 14:00] VITALS: BP 107/70; PULSE 61; RESP 16
[2019-03-02] MEDS: WARFARIN 2 MG TAB GTB SCH (16:57)
[2019-03-02 19:54] VITALS: BP 114/82; PULSE 64; RESP 18
[2019-03-02] MEDS: DEXAMETHASONE 2 MG TAB GTB SCH (20:03)
[2019-03-02] MEDS: MIRTAZAPINE 15 MG TAB GTB SCH (20:03)
[2019-03-03] VITALS (7 sets, daily range): BP systolic 95–136; BP diastolic 62–87; PULSE 61–75; RESP 14–18; BMI 27.4
[2019-03-03] MEDS: morphine 2 MG INJ IV PRN ×4 (02:57→20:21)
[2019-03-03] MEDS ORDERED: NITROGLYCERIN (SL) 0.4 MG TAB SL PRN (04:30)
[2019-03-03] MEDS ORDERED: SOD CHLORIDE 0.9% 250 ML IV ONE ×2 (05:00→07:00)
[2019-03-03] MEDS: PANTOPRAZOLE 40 MG INJ IV SCH (05:01)
[2019-03-03] MEDS ORDERED: morphine 2 MG INJ IV STA ×2 (05:27→06:52)
[2019-03-03] MEDS: CITALOPRAM 20 MG TAB GTB SCH (08:44)
[2019-03-03] MEDS: LEVETIRACETAM (100 MG/ML) 5ML CUP GTB SCH ×2 (08:44→20:33)
[2019-03-03] MEDS: ATORVASTATIN 10 MG TAB GTB SCH (08:44)
[2019-03-03] MEDS: METOPROLOL 100 MG TAB GTB SCH (08:44)
--- NOTE | 2019-03-03 13:57 | CONS ---
Consult Date/Type/Reason Admit Date/Time Feb 26, 2019 at 03:22 Initial Consult Date 02/26/19 Type of Consultation: Urology Reason for Consultation Gross hematuria Requesting Provider: MARISELA URBAN Date/Time of Note DATE: 03/03/19 TIME: 13:54 Subjective The patient is aphasic but the staff report that he has been voiding. Objective Vitals Vital Signs Date Temp Pulse Resp B/P (MAP) Pulse Ox O2 O2 Flow FiO2 Time Delivery Rate 03/03/19 97.5 69 14 136/75 96 Room Air 07:30 (95) 02/28/19 10 14:15 Intake and Output 03/02/19 03/02/19 03/03/19 1515:00 23:00 07:00 IntakeIntake Total 80.5 ml 174.54 ml OutputOutput Total 650 ml 150 ml 650 ml BalanceBalance -650 ml -69.5 ml -475.46 ml Exam The patient voided 200 mL and his postvoid residual was 20 mL Results/Medications Result Diagram: 03/01/19 0558 03/01/19 0558 Results 24 hrs Laboratory Tests Test 03/02/19 14:10 03/03/19 04:40 03/03/19 10:09 Activated Partial Thromboplast Time 85.3 *H 70.1 *H Prothrombin Time 21.9 H Prothrombin Time Ratio 1.7 INR International Normalized Ratio 1.90 Creatine Kinase < 20 L < 20 L Creatine Kinase Index Creatinine Kinase MB (Mass) 0.63 0.39 Troponin I < 0.012 < 0.012 Home Meds Reported Medications Atorvastatin Calcium (Atorvastatin Calcium) 10 Mg Tablet, 20 MG GTB DAILY, #30 TAB 02/26/19 Citalopram Hydrobromide* (Citalopram Hydrobromide*) 20 Mg Tablet, 20 MG GTB DAILY, #30 TAB 02/26/19 Sennosides* (Senna Lax*) 8.6 Mg Tablet, 1 TAB GTB DAILY PRN for constipation, TAB 02/26/19 Mirtazapine* (Mirtazapine*) 15 Mg Tablet, 15 MG GTB HS, TAB 02/26/19 Dexamethasone* (Dexamethasone*) 2 Mg Tablet, 2 MG GTB QHS, TAB 02/26/19 Zolpidem Tartrate* (Ambien*) 10 Mg Tablet, 10 MG GTB QHS PRN for INSOMNIA, TAB 02/26/19 Warfarin Sod (Coumadin) 3 Mg Tab, 4 MG GTB DAILY, TAB 02/26/19 Metoprolol Tartrate* (Lopressor*) 100 Mg Tablet, 100 MG GTB DAILY, #60 TAB 02/26/19 Levetiracetam* (Levetiracetam*) 500 Mg/5 Ml Solution, 1000 MG GTB BID, ML 02/26/19 Medications Current Medications IV Flush (NS 3 ml) 3 ml PER PROTOCOL IV ; Start 02/26/19 at 04:30 Ondansetron HCl (Zofran Inj) 4 mg Q6H PRN IV NAUSEA/VOMITING; Start 02/26/19 at 04:30 Morphine Sulfate (morphine) 2 mg Q4H PRN IV .SEVERE PAIN 7-10 Last administered on 03/03/19at 11:38; Admin Dose 2 MG; Start 02/26/19 at 04:30 Pantoprazole (Protonix Iv) 40 mg DAILY@06 IV Last administered on 03/03/19at 05:01; Admin Dose 40 MG; Start 02/26/19 at 06:00 Albuterol/ Ipratropium (Duoneb) 3 ml Q2H RESP THERAPY PRN HHN SHORTNESS OF BREATH; Start 02/26/19 at 04:30 Warfarin Sodium (Coumadin) 4 mg 1700 GTB Last administered on 03/02/19at 16:57; Admin Dose 4 MG; Start 02/26/19 at 18:30 Melatonin (Melatonin) 5 mg HS PRN GTB INSOM Last administered on 02/27/19at 23:07; Admin Dose 5 MG; Start 02/26/19 at 23:30 Heparin Sodium (Porcine) (Heparin (1000 Units/ml)) 5,800 unit PER PROTOCOL PRN IV aPTT<47 Last administered on 02/28/19at 02:03; Admin Dose 5,800 UNIT; Start 02/27/19 at 19:00 Heparin Sodium (Porcine) (Heparin (1000 Units/ml)) 2,900 unit PER PROTOCOL PRN IV aPTT<47-57; Start 02/27/19 at 19:00 Heparin Sodium (Porcine) 250 ml @ 13 mls/hr PER PROTOCOL IV Last administered on 03/02/19at 03:19; Admin Dose 7 MLS/HR; Start 02/27/19 at 19:00 Atorvastatin Calcium (Lipitor) 20 mg DAILY GTB Last administered on 03/03/19 08:44; Admin Dose 20 MG; Start 03/01/19 at 09:00 Citalopram Hydrobromide (Celexa) 20 mg DAILY GTB Last administered on 03/03/19 08:44; Admin Dose 20 MG; Start 02/28/19 at 20:30 Dexamethasone (Decadron) 2 mg QHS GTB Last administered on 03/02/19 20:03; Admin Dose 2 MG; Start 02/28/19 at 21:00 Levetiracetam (Keppra Liquid) 1,000 mg BID GTB Last administered on 03/03/19 08:44; Admin Dose 1,000 MG; Start 02/28/19 at 21:00 Metoprolol Tartrate (Lopressor) 100 mg DAILY GTB Last administered on 03/03/19 08:44; Admin Dose 100 MG; Start 03/01/19 at 09:00 Mirtazapine (Remeron) 15 mg HS GTB Last administered on 03/02/19 20:03; Admin Dose 15 MG; Start 02/28/19 at 21:00 Senna (Senokot) 1 tab DAILY PRN GTB constipation; Start 02/28/19 at 20:30 Zolpidem Tartrate (Ambien) 10 mg QHS PRN GTB INSOMNIA; Start 02/28/19 at 20:30 Acetaminophen (Tylenol Liquid) 650 mg Q6 PRN GTB MILD PAIN(1-3)OR ELEVATED TEMP; Start 02/28/19 at 21:30 Nitroglycerin (Nitroglycerin (Sl Tab) 0.4 Mg) 1 tab Q5M PRN SL ANGINA Last administered on 03/03/19at 04:51; Admin Dose 1 TAB; Start 03/03/19 at 04:30 Assessment/Plan Hospital Course (Demo Recall) 43-year-old male was brought to the emergency room because of gross hematuria. That started on 02/25/2019. The patient is known to have had heart valve replacement and has been on Coumadin. On admission to the ER his INR was over 10. He also was bleeding around the G-tube. The patient had a stroke in June 2018 and since then he has been aphasic. He does also have dysphagia and has a G-tube. There is no prior history of gross hematuria. No history of kidney stones. And he never had an indwelling Chan catheter. The Chan catheter that he had was removed and he has been voiding.The reported color of the urine is clear and there is no longer hematuria. The postvoid residual has been low. Patient did void 200 mL and the postvoid residual was 20 ml. We will discontinue the bladder scan. SEDA GLOVER MD Mar 03, 2019 13:57
[2019-03-03] MEDS ORDERED: BARIUM SULFATE 135 ML (E-Z HD) PO ONE (14:02)
[2019-03-03] MEDS: WARFARIN 2 MG TAB GTB SCH (16:14)
[2019-03-03] MEDS: HEPARIN 25000 UNITS/250 ML 250 ML IV SCH (16:19)
--- NOTE | 2019-03-03 20:05 | CONS ---
Consult Date/Type/Reason Admit Date/Time Feb 26, 2019 at 03:22 Initial Consult Date 02/27/19 Type of Consultation: Urology Requesting Provider: MARISELA URBAN Date/Time of Note DATE: 03/03/19 TIME: 20:04 Subjective CV follow up S D/W staff no active bleeding now no cp no PND orthopnea O: General: no acute distress HEENT: NC/AT. pupils are equal. round. NECK: no stridor. CV: RRR.+ Chemical click systolic murmur; no gallop or rubs. PULM: no wheezing or rhonchi. GI: SOFT, NT, ND, no rebound or guarding Extremity: trace B/L LE edema. no clubbing. neuro: awake and alert, with aphasia and mild right-sided weakness Psych: CALM rectal: deferred : andersen removed Chest x-ray showed Mild cardiomegaly and pulmonary venous congestion echo Reviewed. see my report Objective Vitals Vital Signs Date Temp Pulse Resp B/P (MAP) Pulse Ox O2 O2 Flow FiO2 Time Delivery Rate 03/03/19 97.3 64 15 126/87 96 Room Air 15:32 (100) 02/28/19 10 14:15 Intake and Output 03/02/19 03/02/19 03/03/19 1515:00 23:00 07:00 IntakeIntake Total 80.5 ml 424.54 ml OutputOutput Total 650 ml 150 ml 650 ml BalanceBalance -650 ml -69.5 ml -225.46 ml Results/Medications Result Diagram: 03/01/19 0558 03/01/19 0558 Results 24 hrs Laboratory Tests Test 03/03/19 04:40 03/03/19 10:09 Prothrombin Time 21.9 H Prothrombin Time Ratio 1.7 INR International Normalized Ratio 1.90 Activated Partial Thromboplast Time 70.1 *H Creatine Kinase < 20 L < 20 L Creatine Kinase Index Creatinine Kinase MB (Mass) 0.63 0.39 Troponin I < 0.012 < 0.012 Home Meds Reported Medications Atorvastatin Calcium (Atorvastatin Calcium) 10 Mg Tablet, 20 MG GTB DAILY, #30 TAB 02/26/19 Citalopram Hydrobromide* (Citalopram Hydrobromide*) 20 Mg Tablet, 20 MG GTB DAILY, #30 TAB 02/26/19 Sennosides* (Senna Lax*) 8.6 Mg Tablet, 1 TAB GTB DAILY PRN for constipation, TAB 02/26/19 Mirtazapine* (Mirtazapine*) 15 Mg Tablet, 15 MG GTB HS, TAB 02/26/19 Dexamethasone* (Dexamethasone*) 2 Mg Tablet, 2 MG GTB QHS, TAB 02/26/19 Zolpidem Tartrate* (Ambien*) 10 Mg Tablet, 10 MG GTB QHS PRN for INSOMNIA, TAB 02/26/19 Warfarin Sod (Coumadin) 3 Mg Tab, 4 MG GTB DAILY, TAB 02/26/19 Metoprolol Tartrate* (Lopressor*) 100 Mg Tablet, 100 MG GTB DAILY, #60 TAB 02/26/19 Levetiracetam* (Levetiracetam*) 500 Mg/5 Ml Solution, 1000 MG GTB BID, ML 02/26/19 Medications Current Medications IV Flush (NS 3 ml) 3 ml PER PROTOCOL IV ; Start 02/26/19 at 04:30 Ondansetron HCl (Zofran Inj) 4 mg Q6H PRN IV NAUSEA/VOMITING; Start 02/26/19 at 04:30 Morphine Sulfate (morphine) 2 mg Q4H PRN IV .SEVERE PAIN 7-10 Last administered on 03/03/19at 16:15; Admin Dose 2 MG; Start 02/26/19 at 04:30 Pantoprazole (Protonix Iv) 40 mg DAILY@06 IV Last administered on 03/03/19at 05:01; Admin Dose 40 MG; Start 02/26/19 at 06:00 Albuterol/ Ipratropium (Duoneb) 3 ml Q2H RESP THERAPY PRN HHN SHORTNESS OF TALA TH; Start 02/26/19 at 04:30 Warfarin Sodium (Coumadin) 4 mg 1700 GTB Last administered on 03/03/19at 16:14; Admin Dose 4 MG; Start 02/26/19 at 18:30 Melatonin (Melatonin) 5 mg HS PRN GTB INSOM Last administered on 02/27/19at 23:07; Admin Dose 5 MG; Start 02/26/19 at 23:30 Atorvastatin Calcium (Lipitor) 20 mg DAILY GTB Last administered on 03/03/19at 08:44; Admin Dose 20 MG; Start 03/01/19 at 09:00 Citalopram Hydrobromide (Celexa) 20 mg DAILY GTB Last administered on 03/03/19 08:44; Admin Dose 20 MG; Start 02/28/19 at 20:30 Dexamethasone (Decadron) 2 mg QHS GTB Last administered on 03/02/19 20:03; Admin Dose 2 MG; Start 02/28/19 at 21:00 Levetiracetam (Keppra Liquid) 1,000 mg BID GTB Last administered on 03/03/19 08:44; Admin Dose 1,000 MG; Start 02/28/19 at 21:00 Metoprolol Tartrate (Lopressor) 100 mg DAILY GTB Last administered on 03/03/19 08:44; Admin Dose 100 MG; Start 03/01/19 at 09:00 Mirtazapine (Remeron) 15 mg HS GTB Last administered on 03/02/19 20:03; Admin Dose 15 MG; Start 02/28/19 at 21:00 Senna (Senokot) 1 tab DAILY PRN GTB constipation; Start 02/28/19 at 20:30 Zolpidem Tartrate (Ambien) 10 mg QHS PRN GTB INSOMNIA; Start 02/28/19 at 20:30 Acetaminophen (Tylenol Liquid) 650 mg Q6 PRN GTB MILD PAIN(1-3)OR ELEVATED TEMP; Start 02/28/19 at 21:30 Nitroglycerin (Nitroglycerin (Sl Tab) 0.4 Mg) 1 tab Q5M PRN SL ANGINA Last administered on 03/03/19at 04:51; Admin Dose 1 TAB; Start 03/03/19 at 04:30 Assessment/Plan Hospital Course (Demo Recall) 1. Hematuria and diffuse bleeding secondary to coagulopathy 2. Severe coagulopathy probably secondary to Coumadin overdose 3. History of mechanical aortic valve replacement 4. History of CVA 5. Mild pulmonary congestion 6. PEG malfunction 7. Cardia vascular pre-evaluation for PEG replacement Recommendations: cont coumadin. Check daily PT/INR and adjust as needed. Adjustment as per internal medicine. 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 Consider referral to Coumadin clinic if that is available WILL DC HEPARIN RADHA NOW Thank you for his referral. MARIANNE AKHTAR MD [facility] MARIANNE AKHTAR MD Mar 03, 2019 20:05
[2019-03-03] MEDS: MIRTAZAPINE 15 MG TAB GTB SCH (20:19)
[2019-03-03] MEDS: DEXAMETHASONE 2 MG TAB GTB SCH (20:21)
--- NOTE | 2019-03-03 20:38 | PN ---
Date/Time of Note Date/Time of Note DATE: 03/03/19 TIME: 20:35 Assessment/Plan VTE Prophylaxis Risk score (from Ns)>0 risk: 2 SCD applied (from [facility]): No SCD contraindicated: low risk/ambulating Pharmacological prophylaxis: NA/contraindicated Pharm contraindication: low risk/ambulating Lines/Catheters IV C[facility]ter Type (from [facility] Peripheral IV Urinary Cath still in place: No Assessment/Plan Hospital Course A/P 1. G Hematuria; resolving 2. Severe coumadin assoc coagulopathy 3. AVR status 4. Peg malfunction? sp exchange 5. H/o stroke 6. Aphasia 7. Ftt; home vs snf 8. Peg status 9. seizure dz?? 10. S: no distress no bleeding O: vss PE no pallor; mild droop reg click ctab bs+ nt nd no r r g no edema Result Diagram: 03/01/19 0558 03/01/1958 Results 24hrs Laboratory Tests Test 03/03/19 04:40 03/03/19 10:09 Prothrombin Time 21.9 H Prothrombin Time Ratio 1.7 INR International Normalized Ratio 1.90 Activated Partial Thromboplast Time 70.1 *H Creatine Kinase < 20 L < 20 L Creatine Kinase Index Creatinine Kinase MB (Mass) 0.63 0.39 Troponin I < 0.012 < 0.012 Exam/Review of Systems Exam Vitals Vital Signs Date Temp Pulse Resp B/P (MAP) Pulse Ox O2 O2 Flow FiO2 Time Delivery Rate 03/03/19 97.9 63 18 123/77 95 20:00 (92) 03/03/19 Room Air 15:32 02/28/19 10 14:15 Intake and Output 03/02/19 03/02/19 03/03/19 1515:00 23:00 07:00 IntakeIntake Total 80.5 ml 424.54 ml OutputOutput Total 650 ml 150 ml 650 ml BalanceBalance -650 ml -69.5 ml -225.46 ml Results Results 24hrs Laboratory Tests Test 03/03/19 04:40 03/03/19 10:09 Prothrombin Time 21.9 H Prothrombin Time Ratio 1.7 INR International Normalized Ratio 1.90 Activated Partial Thromboplast Time 70.1 *H Creatine Kinase < 20 L < 20 L Creatine Kinase Index Creatinine Kinase MB (Mass) 0.63 0.39 Troponin I < 0.012 < 0.012 Medications Medication Current Medications IV Flush (NS 3 ml) 3 ml PER PROTOCOL IV ; Start 02/26/19 at 04:30 Ondansetron HCl (Zofran Inj) 4 mg Q6H PRN IV NAUSEA/VOMITING; Start 02/26/19 at 04:30 Morphine Sulfate (morphine) 2 mg Q4H PRN IV .SEVERE PAIN 7-10 Last administered on 03/03/19 20:21; Admin Dose 2 MG; Start 02/26/19 at 04:30 Pantoprazole (Protonix Iv) 40 mg DAILY@06 IV Last administered on 03/03/19 05:01; Admin Dose 40 MG; Start 02/26/19 at 06:00 Albuterol/ Ipratropium (Duoneb) 3 ml Q2H RESP THERAPY PRN HHN SHORTNESS OF BREATH; Start 02/26/19 at 04:30 Warfarin Sodium (Coumadin) 4 mg 1700 GTB Last administered on 03/03/19 16:14; Admin Dose 4 MG; Start 02/26/19 at 18:30 Melatonin (Melatonin) 5 mg HS PRN GTB INSOM Last administered on 02/27/19 23:07; Admin Dose 5 MG; Start 02/26/19 at 23:30 Atorvastatin Calcium (Lipitor) 20 mg DAILY GTB Last administered on 03/03/19 08:44; Admin Dose 20 MG; Start 03/01/19 at 09:00 Citalopram Hydrobromide (Celexa) 20 mg DAILY GTB Last administered on 03/03/19 08:44; Admin Dose 20 MG; Start 02/28/19 at 20:30 Dexamethasone (Decadron) 2 mg QHS GTB Last administered on 03/03/19 20:21; Admin Dose 2 MG; Start 02/28/19 at 21:00 Levetiracetam (Keppra Liquid) 1,000 mg BID GTB Last administered on 03/03/19 08:44; Admin Dose 1,000 MG; Start 02/28/19 at 21:00 Metoprolol Tartrate (Lopressor) 100 mg DAILY GTB Last administered on 03/03/19 08:44; Admin Dose 100 MG; Start 03/01/19 at 09:00 Mirtazapine (Remeron) 15 mg HS GTB Last administered on 03/03/19at 20:19; Admin Dose 15 MG; Start 02/28/19 at 21:00 Senna (Senokot) 1 tab DAILY PRN GTB constipation; Start 02/28/19 at 20:30 Zolpidem Tartrate (Ambien) 10 mg QHS PRN GTB INSOMNIA; Start 02/28/19 at 20:30 Acetaminophen (Tylenol Liquid) 650 mg Q6 PRN GTB MILD PAIN(1-3)OR ELEVATED TEMP; Start 02/28/19 at 21:30 Nitroglycerin (Nitroglycerin (Sl Tab) 0.4 Mg) 1 tab Q5M PRN SL ANGINA Last administered on 03/03/19at 04:51; Admin Dose 1 TAB; Start 03/03/19 at 04:30 MARGARITA COOPER MD Mar 03, 2019 20:38
[2019-03-04 02:00] VITALS: BP 93/59; PULSE 62; RESP 18
[2019-03-04] MEDS: PANTOPRAZOLE 40 MG INJ IV SCH (05:04)
[2019-03-04 05:07] VITALS: BP 105/79; PULSE 73
[2019-03-04] MEDS: morphine 2 MG INJ IV PRN ×3 (05:10→16:39)
[2019-03-04] MEDS: ACETAMINOPHEN 650MG/20.3ML CUP GTB PRN ×2 (06:00→14:39)
[2019-03-04 07:50] VITALS: BP 105/75; PULSE 62; RESP 18
[2019-03-04] MEDS: METOPROLOL 100 MG TAB GTB SCH (08:44)
[2019-03-04] MEDS: CITALOPRAM 20 MG TAB GTB SCH (08:44)
[2019-03-04] MEDS: LEVETIRACETAM (100 MG/ML) 5ML CUP GTB SCH (08:44)
[2019-03-04] MEDS: ATORVASTATIN 10 MG TAB GTB SCH (08:44)
[2019-03-04 09:44] VITALS: Ht 167.6 cm; Wt 77.1 kg
--- NOTE | 2019-03-04 10:09 | CONSI ---
Assessment/Plan Assessment/Plan Assessment/Plan (Recall) 43 M c/ Hx of stroke, who presents for evaluation of hematuria. Noted to have a headache, for which neurology is consulted.. His headache appears to be a nonspecific tension-type headache. Head CT is reassuringly negative for acute intracranial pathology., P: Trial of low dose NSAID Limit opiates where possible Other management and supportive care per primary Will follow clinically Consultation Date/Type/Reason Admit Date/Time Feb 26, 2019 at 03:22 Type of Consult Neurology Reason for Consultation headache Requesting Provider: MARISELA URBAN Date/Time of Note DATE: 03/04/19 TIME: 10:02 Hx of Present Illness Patient is nonverbal, able to nod to some questions.. It is elsewhere noted: Patient is a 43-year-old male who was nonverbal after stroke in June of last year, history of cardiac valve replacement in 2009 on Coumadin, dysphagia status post G-tube. Patient was brought to the ER for gross hematuria x1 day. is at the bedside who provided all the information. Patient also has been having a bleeding around his G-tube site as well as some greenish output from the G-tube. He is actually scheduled to see Dr. Ro at [place] for EGD. Patient has been on Coumadin since 2009 and his gross hematuria started yesterday. When he presented to the ER, he is found to have an INR > 10. Bladder irrigation has been started. 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 He reports a headache, for which neurology is consulted.. He points to L temporal region, 04/18..cant express duration or other qualifying features. Denies nausea, dizziness.. Subjective hx not possible: pt non-verbal Objective Exam Vitals Vital Signs Date Temp Pulse Resp B/P (MAP) Pulse Ox O2 O2 Flow FiO2 Time Delivery Rate 03/04/19 98.6 62 18 105/75 97 07:50 (85) 03/03/19 Room Air 15:32 02/28/19 10 14:15 Intake and Output 03/03/19 03/03/19 03/04/19 1515:00 23:00 07:00 IntakeIntake Total 80 ml OutputOutput Total 500 ml 625 ml BalanceBalance -420 ml -625 ml Exam PE: Gen Appearance: No Apparent Distress HEENT: Normocephalic Cardiovascular: Regular rate Abdomen: Soft Extremities: Dry NE: The patient was alert though nonverbal.. able to nod appropriately.. Pupils were equal and reactive to light. There was no afferent pupillary defect. Visual lemons were normal. Funduscopic examination was limited. Extra-ocular movements were full. Ptosis was absent. There was no nystagmus. Facial sensation was normal. Face was symmetric with normal strength. Hearing was intact. Palate movements were normal. Neck strength was normal. There was normal tongue bulk and speed of movement. Tone was normal. Muscle bulk was normal. I did not see fasciculations. Limbs were grossly symmetric.. Vibration sensation was normal. Temperature and pinprick sensation was normal. Rapid alternating movements were normal. There was no dysmetria. There was no intention tremor. Gait was deferred due to bedrest. Arm and leg reflexes were grossly symmetric.. Paris's sign was absent. Plantar responses were flexor. Results Result Diagram: 03/04/19 0500 03/04/19 0500 Results 24hrs Laboratory Tests Test 03/03/19 10:09 03/04/19 05:00 Creatine Kinase < 20 L Creatine Kinase Index Creatinine Kinase MB (Mass) 0.39 Troponin I < 0.012 White Blood Count 4.8 # Red Blood Count 4.53 L Hemoglobin 13.0 L Hematocrit 40.4 L Mean Corpuscular Volume 89.2 Mean Corpuscular Hemoglobin 28.7 L Mean Corpuscular Hemoglobin Concent 32.2 Red Cell Distribution Width 14.9 H Platelet Count 219 Mean Platelet Volume 10.1 Immature Granulocytes % 0.400 Neutrophils % 68.7 Lymphocytes % 21.3 Monocytes % 8.8 Eosinophils % 0.6 Basophils % 0.2 Nucleated Red Blood Cells % 0.0 Immature Granulocytes # 0.020 Neutrophils # 3.3 Lymphocytes # 1.0 Monocytes # 0.4 Eosinophils # 0.0 Basophils # 0.0 Nucleated Red Blood Cells # 0.0 Prothrombin Time 23.8 H Prothrombin Time Ratio 1.9 INR International Normalized Ratio 2.12 Activated Partial Thromboplast Time 44.6 H Sodium Level 140 Potassium Level 4.2 Chloride Level 105 Carbon Dioxide Level 28 Anion Gap 7 Blood Urea Nitrogen 17 Creatinine 0.57 L Est Glomerular Filtrat Rate mL/min > 60 Glucose Level 130 Calcium Level 8.9 Magnesium Level 2.0 Total Bilirubin 0.4 Direct Bilirubin 0.00 Indirect Bilirubin 0.4 Aspartate Amino Transf (AST/SGOT) 54 H Alanine Aminotransferase (ALT/SGPT) 70 H Alkaline Phosphatase 87 Total Protein 7.0 Albumin 3.6 Globulin 3.40 H Albumin/Globulin Ratio 1.05 Thyroid Stimulating Hormone (TSH) 0.195 L Past Medical History Medical History: other (see hpi) Home Meds Reported Medications Atorvastatin Calcium (Atorvastatin Calcium) 10 Mg Tablet, 20 MG GTB DAILY, #30 TAB 02/26/19 Citalopram Hydrobromide* (Citalopram Hydrobromide*) 20 Mg Tablet, 20 MG GTB DAILY, #30 TAB 02/26/19 Sennosides* (Senna Lax*) 8.6 Mg Tablet, 1 TAB GTB DAILY PRN for constipation, TAB 02/26/19 Mirtazapine* (Mirtazapine*) 15 Mg Tablet, 15 MG GTB HS, TAB 02/26/19 Dexamethasone* (Dexamethasone*) 2 Mg Tablet, 2 MG GTB QHS, TAB 02/26/19 Zolpidem Tartrate* (Ambien*) 10 Mg Tablet, 10 MG GTB QHS PRN for INSOMNIA, TAB 02/26/19 Warfarin Sod (Coumadin) 3 Mg Tab, 4 MG GTB DAILY, TAB 02/26/19 Metoprolol Tartrate* (Lopressor*) 100 Mg Tablet, 100 MG GTB DAILY, #60 TAB 02/26/19 Levetiracetam* (Levetiracetam*) 500 Mg/5 Ml Solution, 1000 MG GTB BID, ML 02/26/19 Medications Current Medications IV Flush (NS 3 ml) 3 ml PER PROTOCOL IV ; Start 02/26/19 at 04:30 Ondansetron HCl (Zofran Inj) 4 mg Q6H PRN IV NAUSEA/VOMITING; Start 02/26/19 at 04:30 Morphine Sulfate (morphine) 2 mg Q4H PRN IV .SEVERE PAIN 7-10 Last administered on 03/04/19at 05:10; Admin Dose 2 MG; Start 02/26/19 at 04:30 Pantoprazole (Protonix Iv) 40 mg DAILY@06 IV Last administered on 03/04/19at 05:04; Admin Dose 40 MG; Start 02/26/19 at 06:00 Albuterol/ Ipratropium (Duoneb) 3 ml Q2H RESP THERAPY PRN HHN SHORTNESS OF BREATH; Start 02/26/19 at 04:30 Warfarin Sodium (Coumadin) 4 mg 1700 GTB Last administered on 03/03/19 16:14; Admin Dose 4 MG; Start 02/26/19 at 18:30 Melatonin (Melatonin) 5 mg HS PRN GTB INSOM Last administered on 02/27/19 23:07; Admin Dose 5 MG; Start 02/26/19 at 23:30 Atorvastatin Calcium (Lipitor) 20 mg DAILY GTB Last administered on 03/04/19 08:44; Admin Dose 20 MG; Start 03/01/19 at 09:00 Citalopram Hydrobromide (Celexa) 20 mg DAILY GTB Last administered on 03/04/19 08:44; Admin Dose 20 MG; Start 02/28/19 at 20:30 Dexamethasone (Decadron) 2 mg QHS GTB Last administered on 03/03/19 20:21; Admin Dose 2 MG; Start 02/28/19 at 21:00 Levetiracetam (Keppra Liquid) 1,000 mg BID GTB Last administered on 03/04/19 08:44; Admin Dose 1,000 MG; Start 02/28/19 at 21:00 Metoprolol Tartrate (Lopressor) 100 mg DAILY GTB Last administered on 03/04/19 08:44; Admin Dose 100 MG; Start 03/01/19 at 09:00 Mirtazapine (Remeron) 15 mg HS GTB Last administered on 03/03/19 20:19; Admin Dose 15 MG; Start 02/28/19 at 21:00 Senna (Senokot) 1 tab DAILY PRN GTB constipation; Start 02/28/19 at 20:30 Zolpidem Tartrate (Ambien) 10 mg QHS PRN GTB INSOMNIA; Start 02/28/19 at 20:30 Acetaminophen (Tylenol Liquid) 650 mg Q6 PRN GTB MILD PAIN(1-3)OR ELEVATED TEMP Last administered on 03/04/19 06:00; Admin Dose 650 MG; Start 02/28/19 at 21:30 Nitroglycerin (Nitroglycerin (Sl Tab) 0.4 Mg) 1 tab Q5M PRN SL ANGINA Last administered on 03/03/19at 04:51; Admin Dose 1 TAB; Start 03/03/19 at 04:30 Allergies: Coded Allergies: No Known Drug Allergies (Verified Allergy, Unknown, 01/23/14) Past Surgical History Past Surgical Hx: other (see hpi) Social History Alcohol Use: none Smoking Status: Never smoker Drug Use: none RONNELL DAMON Mar 04, 2019 10:09
[2019-03-04] MEDS ORDERED: NAPROXEN 250 MG TAB PO SCH (10:30)
[2019-03-04 14:00] VITALS: BP 115/79; PULSE 57; RESP 16
--- NOTE | 2019-03-04 15:46 | CONS ---
Consult Date/Type/Reason Admit Date/Time Feb 26, 2019 at 03:22 Initial Consult Date 02/27/19 Type of Consultation: cv Requesting Provider: MARISELA URBAN Date/Time of Note DATE: 03/04/19 TIME: 15:45 Subjective Cardiology follow-up progress note S D/W staff no active bleeding now no cp no PND orthopnea Discussed with Dr. Wagner O: General: no acute distress HEENT: NC/AT. pupils are equal. round. NECK: no stridor. CV: RRR.+ Chemical click systolic murmur; no gallop or rubs. PULM: no wheezing or rhonchi. GI: SOFT, NT, ND, no rebound or guarding Extremity: trace B/L LE edema. no clubbing. neuro: awake and alert, with aphasia and mild right-sided weakness Psych: CALM rectal: deferred : andersen removed Chest x-ray showed Mild cardiomegaly and pulmonary venous congestion echo Reviewed. see my report Objective Vitals Vital Signs Date Temp Pulse Resp B/P (MAP) Pulse Ox O2 O2 Flow FiO2 Time Delivery Rate 03/04/19 98.6 62 18 105/75 97 07:50 (85) 03/03/19 Room Air 15:32 02/28/19 10 14:15 Intake and Output 03/03/19 03/03/19 03/04/19 1515:00 23:00 07:00 IntakeIntake Total 80 ml OutputOutput Total 500 ml 625 ml BalanceBalance -420 ml -625 ml Results/Medications Result Diagram: 03/04/19 0500 03/04/19 0500 Results 24 hrs Laboratory Tests Test 03/04/19 05:00 White Blood Count 4.8 # Red Blood Count 4.53 L Hemoglobin 13.0 L Hematocrit 40.4 L Mean Corpuscular Volume 89.2 Mean Corpuscular Hemoglobin 28.7 L Mean Corpuscular Hemoglobin Concent 32.2 Red Cell Distribution Width 14.9 H Platelet Count 219 Mean Platelet Volume 10.1 Immature Granulocytes % 0.400 Neutrophils % 68.7 Lymphocytes % 21.3 Monocytes % 8.8 Eosinophils % 0.6 Basophils % 0.2 Nucleated Red Blood Cells % 0.0 Immature Granulocytes # 0.020 Neutrophils # 3.3 Lymphocytes # 1.0 Monocytes # 0.4 Eosinophils # 0.0 Basophils # 0.0 Nucleated Red Blood Cells # 0.0 Prothrombin Time 23.8 H Prothrombin Time Ratio 1.9 INR International Normalized Ratio 2.12 Activated Partial Thromboplast Time 44.6 H Sodium Level 140 Potassium Level 4.2 Chloride Level 105 Carbon Dioxide Level 28 Anion Gap 7 Blood Urea Nitrogen 17 Creatinine 0.57 L Est Glomerular Filtrat Rate mL/min > 60 Glucose Level 130 Calcium Level 8.9 Magnesium Level 2.0 Total Bilirubin 0.4 Direct Bilirubin 0.00 Indirect Bilirubin 0.4 Aspartate Amino Transf (AST/SGOT) 54 H Alanine Aminotransferase (ALT/SGPT) 70 H Alkaline Phosphatase 87 Total Protein 7.0 Albumin 3.6 Globulin 3.40 H Albumin/Globulin Ratio 1.05 Thyroid Stimulating Hormone (TSH) 0.195 L Home Meds Reported Medications Atorvastatin Calcium (Atorvastatin Calcium) 10 Mg Tablet, 20 MG GTB DAILY, #30 TAB 02/26/19 Citalopram Hydrobromide* (Citalopram Hydrobromide*) 20 Mg Tablet, 20 MG GTB DAILY, #30 TAB 02/26/19 Sennosides* (Senna Lax*) 8.6 Mg Tablet, 1 TAB GTB DAILY PRN for constipation, TAB 02/26/19 Mirtazapine* (Mirtazapine*) 15 Mg Tablet, 15 MG GTB HS, TAB 02/26/19 Dexamethasone* (Dexamethasone*) 2 Mg Tablet, 2 MG GTB QHS, TAB 02/26/19 Zolpidem Tartrate* (Ambien*) 10 Mg Tablet, 10 MG GTB QHS PRN for INSOMNIA, TAB 02/26/19 Warfarin Sod (Coumadin) 3 Mg Tab, 4 MG GTB DAILY, TAB 02/26/19 Metoprolol Tartrate* (Lopressor*) 100 Mg Tablet, 100 MG GTB DAILY, #60 TAB 02/26/19 Levetiracetam* (Levetiracetam*) 500 Mg/5 Ml Solution, 1000 MG GTB BID, ML 02/26/19 Medications Current Medications IV Flush (NS 3 ml) 3 ml PER PROTOCOL IV ; Start 02/26/19 at 04:30 Ondansetron HCl (Zofran Inj) 4 mg Q6H PRN IV NAUSEA/VOMITING Last administered on 03/04/19at 15:01; Admin Dose 4 MG; Start 02/26/19 at 04:30 Morphine Sulfate (morphine) 2 mg Q4H PRN IV .SEVERE PAIN 7-10 Last administered on 03/04/19 10:43; Admin Dose 2 MG; Start 02/26/19 at 04:30 Pantoprazole (Protonix Iv) 40 mg DAILY@06 IV Last administered on 03/04/19 05:04; Admin Dose 40 MG; Start 02/26/19 at 06:00 Albuterol/ Ipratropium (Duoneb) 3 ml Q2H RESP THERAPY PRN HHN SHORTNESS OF BREATH; Start 02/26/19 at 04:30 Warfarin Sodium (Coumadin) 4 mg 1700 GTB Last administered on 03/03/19 16:14; Admin Dose 4 MG; Start 02/26/19 at 18:30 Melatonin (Melatonin) 5 mg HS PRN GTB INSOM Last administered on 02/27/19 23:07; Admin Dose 5 MG; Start 02/26/19 at 23:30 Atorvastatin Calcium (Lipitor) 20 mg DAILY GTB Last administered on 03/04/19 08:44; Admin Dose 20 MG; Start 03/01/19 at 09:00 Citalopram Hydrobromide (Celexa) 20 mg DAILY GTB Last administered on 03/04/19 08:44; Admin Dose 20 MG; Start 02/28/19 at 20:30 Dexamethasone (Decadron) 2 mg QHS GTB Last administered on 03/03/19 20:21; Admin Dose 2 MG; Start 02/28/19 at 21:00 Levetiracetam (Keppra Liquid) 1,000 mg BID GTB Last administered on 03/04/19 08:44; Admin Dose 1,000 MG; Start 02/28/19 at 21:00 Metoprolol Tartrate (Lopressor) 100 mg DAILY GTB Last administered on 03/04/19 08:44; Admin Dose 100 MG; Start 03/01/19 at 09:00 Mirtazapine (Remeron) 15 mg HS GTB Last administered on 03/03/19 20:19; Admin Dose 15 MG; Start 02/28/19 at 21:00 Senna (Senokot) 1 tab DAILY PRN GTB constipation; Start 7/23/19 at 20:30 Zolpidem Tartrate (Ambien) 10 mg QHS PRN GTB INSOMNIA; Start 02/28/19 at 20:30 Acetaminophen (Tylenol Liquid) 650 mg Q6 PRN GTB MILD PAIN(1-3)OR ELEVATED TEMP Last administered on 03/04/19at 14:39; Admin Dose 650 MG; Start 02/28/19 at 21:30 Nitroglycerin (Nitroglycerin (Sl Tab) 0.4 Mg) 1 tab Q5M PRN SL ANGINA Last administered on 03/03/19at 04:51; Admin Dose 1 TAB; Start 03/03/19 at 04:30 Naproxen (Naprosyn) 250 mg BID PO Last administered on 03/04/19at 10:42; Admin Dose 250 MG; Start 03/04/19 at 10:30 Assessment/Plan Hospital Course (Demo Recall) 1. Hematuria and diffuse bleeding secondary to coagulopathy 2. Severe coagulopathy probably secondary to Coumadin overdose 3. History of mechanical aortic valve replacement 4. History of CVA 5. Mild pulmonary congestion 6. PEG malfunction 7. Cardia vascular pre-evaluation for PEG replacement Recommendations: cont coumadin. Check daily PT/INR and adjust as needed. Adjustment as per internal medicine. f/u with & GI rec Outpatient follow-up with his regular cutter in Dr.Fakheri Bains for discharge from cardiac standpoint as long as patient has a very close follow-up on his INR and adjustment of Coumadin. Consider referral to Coumadin clinic if that is available WILL NORY HEPARIN RADHA NOW Thank you for his referral. MARIANNE AKHTAR MD [facility] MARIANNE AKHTAR MD Mar 04, 2019 15:46
--- NOTE | 2019-03-04 16:08 | CONS ---
Consult Date/Type/Reason Admit Date/Time Feb 26, 2019 at 03:22 Initial Consult Date 02/26/19 Type of Consultation: Urology Reason for Consultation Gross hematuria Requesting Provider: MARISELA URBAN Date/Time of Note DATE: 03/04/19 TIME: 16:05 Subjective Patient appears to be comfortable and in no acute distress. Objective Vitals Vital Signs Date Temp Pulse Resp B/P (MAP) Pulse Ox O2 O2 Flow FiO2 Time Delivery Rate 03/04/19 98.6 62 18 105/75 97 07:50 (85) 03/03/19 Room Air 15:32 02/28/19 10 14:15 Intake and Output 03/03/19 03/03/19 03/04/19 1515:00 23:00 07:00 IntakeIntake Total 80 ml OutputOutput Total 500 ml 625 ml BalanceBalance -420 ml -625 ml Exam He just voided and his urine is clear. There is no longer gross hematuria Results/Medications Result Diagram: 03/04/19 0500 03/04/19 0500 Results 24 hrs Laboratory Tests Test 03/04/19 05:00 White Blood Count 4.8 # Red Blood Count 4.53 L Hemoglobin 13.0 L Hematocrit 40.4 L Mean Corpuscular Volume 89.2 Mean Corpuscular Hemoglobin 28.7 L Mean Corpuscular Hemoglobin Concent 32.2 Red Cell Distribution Width 14.9 H Platelet Count 219 Mean Platelet Volume 10.1 Immature Granulocytes % 0.400 Neutrophils % 68.7 Lymphocytes % 21.3 Monocytes % 8.8 Eosinophils % 0.6 Basophils % 0.2 Nucleated Red Blood Cells % 0.0 Immature Granulocytes # 0.020 Neutrophils # 3.3 Lymphocytes # 1.0 Monocytes # 0.4 Eosinophils # 0.0 Basophils # 0.0 Nucleated Red Blood Cells # 0.0 Prothrombin Time 23.8 H Prothrombin Time Ratio 1.9 INR International Normalized Ratio 2.12 Activated Partial Thromboplast Time 44.6 H Sodium Level 140 Potassium Level 4.2 Chloride Level 105 Carbon Dioxide Level 28 Anion Gap 7 Blood Urea Nitrogen 17 Creatinine 0.57 L Est Glomerular Filtrat Rate mL/min > 60 Glucose Level 130 Calcium Level 8.9 Magnesium Level 2.0 Total Bilirubin 0.4 Direct Bilirubin 0.00 Indirect Bilirubin 0.4 Aspartate Amino Transf (AST/SGOT) 54 H Alanine Aminotransferase (ALT/SGPT) 70 H Alkaline Phosphatase 87 Total Protein 7.0 Albumin 3.6 Globulin 3.40 H Albumin/Globulin Ratio 1.05 Thyroid Stimulating Hormone (TSH) 0.195 L Home Meds Reported Medications Atorvastatin Calcium (Atorvastatin Calcium) 10 Mg Tablet, 20 MG GTB DAILY, #30 TAB 02/26/19 Citalopram Hydrobromide* (Citalopram Hydrobromide*) 20 Mg Tablet, 20 MG GTB DAILY, #30 TAB 02/26/19 Sennosides* (Senna Lax*) 8.6 Mg Tablet, 1 TAB GTB DAILY PRN for constipation, TAB 02/26/19 Mirtazapine* (Mirtazapine*) 15 Mg Tablet, 15 MG GTB HS, TAB 02/26/19 Dexamethasone* (Dexamethasone*) 2 Mg Tablet, 2 MG GTB QHS, TAB 02/26/19 Zolpidem Tartrate* (Ambien*) 10 Mg Tablet, 10 MG GTB QHS PRN for INSOMNIA, TAB 02/26/19 Warfarin Sod (Coumadin) 3 Mg Tab, 4 MG GTB DAILY, TAB 02/26/19 Metoprolol Tartrate* (Lopressor*) 100 Mg Tablet, 100 MG GTB DAILY, #60 TAB 02/26/19 Levetiracetam* (Levetiracetam*) 500 Mg/5 Ml Solution, 1000 MG GTB BID, ML 02/26/19 Medications Current Medications IV Flush (NS 3 ml) 3 ml PER PROTOCOL IV ; Start 02/26/19 at 04:30 Ondansetron HCl (Zofran Inj) 4 mg Q6H PRN IV NAUSEA/VOMITING Last administered on 03/04/19at 15:01; Admin Dose 4 MG; Start 02/26/19 at 04:30 Morphine Sulfate (morphine) 2 mg Q4H PRN IV .SEVERE PAIN 7-10 Last administered on 03/04/19at 10:43; Admin Dose 2 MG; Start 02/26/19 at 04:30 Pantoprazole (Protonix Iv) 40 mg DAILY@06 IV Last administered on 03/04/19at 05:04; Admin Dose 40 MG; Start 02/26/19 at 06:00 Albuterol/ Ipratropium (Duoneb) 3 ml Q2H RESP THERAPY PRN HHN SHORTNESS OF BREATH; Start 02/26/19 at 04:30 Warfarin Sodium (Coumadin) 4 mg 1700 GTB Last administered on 03/03/19 16:14; Admin Dose 4 MG; Start 02/26/19 at 18:30 Melatonin (Melatonin) 5 mg HS PRN GTB INSOM Last administered on 02/27/19 23:07; Admin Dose 5 MG; Start 02/26/19 at 23:30 Atorvastatin Calcium (Lipitor) 20 mg DAILY GTB Last administered on 03/04/19 08:44; Admin Dose 20 MG; Start 03/01/19 at 09:00 Citalopram Hydrobromide (Celexa) 20 mg DAILY GTB Last administered on 03/04/19 08:44; Admin Dose 20 MG; Start 02/28/19 at 20:30 Dexamethasone (Decadron) 2 mg QHS GTB Last administered on 03/03/19 20:21; Admin Dose 2 MG; Start 02/28/19 at 21:00 Levetiracetam (Keppra Liquid) 1,000 mg BID GTB Last administered on 03/04/19 08:44; Admin Dose 1,000 MG; Start 02/28/19 at 21:00 Metoprolol Tartrate (Lopressor) 100 mg DAILY GTB Last administered on 03/04/19 08:44; Admin Dose 100 MG; Start 03/01/19 at 09:00 Mirtazapine (Remeron) 15 mg HS GTB Last administered on 03/03/19 20:19; Admin Dose 15 MG; Start 02/28/19 at 21:00 Senna (Senokot) 1 tab DAILY PRN GTB constipation; Start 02/28/19 at 20:30 Zolpidem Tartrate (Ambien) 10 mg QHS PRN GTB INSOMNIA; Start 02/28/19 at 20:30 Acetaminophen (Tylenol Liquid) 650 mg Q6 PRN GTB MILD PAIN(1-3)OR ELEVATED TEMP Last administered on 03/04/19 14:39; Admin Dose 650 MG; Start 02/28/19 at 21:30 Nitroglycerin (Nitroglycerin (Sl Tab) 0.4 Mg) 1 tab Q5M PRN SL ANGINA Last administered on 03/03/19 04:51; Admin Dose 1 TAB; Start 03/03/19 at 04:30 Naproxen (Naprosyn) 250 mg BID PO Last administered on 03/04/19at 10:42; Admin Dose 250 MG; Start 03/04/19 at 10:30 Assessment/Plan Hospital Course (Demo Recall) 43-year-old male was brought to the emergency room because of gross hematuria. That started on 02/25/2019. The patient is known to have had heart valve replacement and has been on Coumadin. On admission to the ER his INR was over 10. He also was bleeding around the G-tube. The patient had a stroke in June 2018 and since then he has been aphasic. He does also have dysphagia and has a G-tube. There is no prior history of gross hematuria. No history of kidney stones. And he never had an indwelling Chan catheter. The Chan catheter that he had was removed and he has been voiding.patient just voided and the urine is clear. There is no more hematuria and his postvoid residual has been low and the bladder scan has been discontinued. From a urological standpoint we will just observe him. SEDA LGOVER MD Mar 04, 2019 16:07
[2019-03-04] MEDS: WARFARIN 2 MG TAB GTB SCH (16:41)
--- NOTE | 2019-03-04 18:15 | DS ---
Date/Time of Note Date/Time of Note DATE: 03/04/19 TIME: 18:06 Discharge Summary Admission/Discharge Info Admit Date/Time Feb 26, 2019 at 03:22 Discharge Date/Time Patient Condition: Stable Consults Tamara Hearn Procedures CAT scan brain IMPRESSION: 1. There has been no marked interval change compared to the patient's prior outside CT scan from September 24, 2018. 2. Mild diffuse volume loss. 3. Prior left frontoparietal craniotomy. 4. Extensive bilateral encephalomalacia within the right frontotemporal and left frontoparietal regions as well as bilateral basal ganglia lacunar infarcts. Note that this may represent the sequela of prior infarcts and/or trauma. Clinical correlation is necessary. CT Scan abdomen pelvis IMPRESSION: 1. Right periureteral stranding without hydronephrosis or appreciated calculus. This could reflect recent passage of a calculus in the appropriate setting. Other inflammatory or infectious process cannot be absolutely excluded. Consider further urologic evaluation as warranted. 2. Hepatomegaly. CXR No acute process Hx of Present Illness admitted with gross hematuria Hospital Course Hospital course Admitted with gross hematuria. Patient on Coumadin INR was greater than 10. Required reversal agents. Seen by urology. Presently patient voiding without gross hematuria stable and fit for discharge. We restarted his Coumadin for his artificial heart valve. Stable and fit for discharge but given instructions to check INR this Wednesday and Wednesday and to fax to primary and cardiology. Seen by GI; peg exchanged for some oozing at peg site. Seen by Neuro for headache. appears tension type; nsaids therapy recommended. Seen by ST. S/P Video Swallow. Results available next week. [phone]. A/P 1. G Hematuria; resolved 2. Severe coumadin assoc coagulopathy, resolved 3. AVR status; stable f/u cardio prn 4. Peg malfunction? sp exchange 5. H/o stroke 6. Aphasia 7. Ftt; home. has a nurse that helps with feeding. 8. Peg status 9. seizure dz?? may not need usp anti seizure meds. 10. Chr dysphagia Home Meds Reported Medications Atorvastatin Calcium (Atorvastatin Calcium) 10 Mg Tablet, 20 MG GTB DAILY, #30 TAB 02/26/19 Citalopram Hydrobromide* (Citalopram Hydrobromide*) 20 Mg Tablet, 20 MG GTB DAILY, #30 TAB 02/26/19 Sennosides* (Senna Lax*) 8.6 Mg Tablet, 1 TAB GTB DAILY PRN for constipation, TAB 02/26/19 Mirtazapine* (Mirtazapine*) 15 Mg Tablet, 15 MG GTB HS, TAB 02/26/19 Dexamethasone* (Dexamethasone*) 2 Mg Tablet, 2 MG GTB QHS, TAB 02/26/19 Zolpidem Tartrate* (Ambien*) 10 Mg Tablet, 10 MG GTB QHS PRN for INSOMNIA, TAB 02/26/19 Warfarin Sod (Coumadin) 3 Mg Tab, 4 MG GTB DAILY, TAB 02/26/19 Metoprolol Tartrate* (Lopressor*) 100 Mg Tablet, 100 MG GTB DAILY, #60 TAB 02/26/19 Levetiracetam* (Levetiracetam*) 500 Mg/5 Ml Solution, 1000 MG GTB BID, ML 02/26/19 Primary Care Provider Not On Staff Doctor Time spent on discharge: > 30 minutes Pending Labs Laboratory Tests Test 03/04/19 05:00 White Blood Count 4.8 10^3/ul (4.8-10.8) Red Blood Count 4.53 10^6/ul (4.70-6.10) Hemoglobin 13.0 g/dl (14.0-18.0) Hematocrit 40.4 % (42.0-52.0) Mean Corpuscular Volume 89.2 fl (82.0-101.0) Mean Corpuscular Hemoglobin 28.7 pg (29.0-33.0) Mean Corpuscular Hemoglobin Concent 32.2 g/dl (32.0-37.0) Red Cell Distribution Width 14.9 % (11.5-14.5) Platelet Count 219 10^3/UL (140-415) Mean Platelet Volume 10.1 fl (7.4-10.4) Immature Granulocytes % 0.400 % (0.001-0.429) Neutrophils % 68.7 % (39.0-77.0) Lymphocytes % 21.3 % (15.0-51.0) Monocytes % 8.8 % (0.0-11.0) Eosinophils % 0.6 % (0.0-7.0) Basophils % 0.2 % (0.0-2.0) Nucleated Red Blood Cells % 0.0 /100WBC (0.0-0.0) Immature Granulocytes # 0.020 10^3/ul (0.0-0.031) Neutrophils # 3.3 10^3/ul (1.6-7.5) Lymphocytes # 1.0 10^3/ul (0.8-2.9) Monocytes # 0.4 10^3/ul (0.3-0.9) Eosinophils # 0.0 10^3/ul (0.0-0.5) Basophils # 0.0 10^3/ul (0.0-0.1) Nucleated Red Blood Cells # 0.0 10^3/ul (0.0-0.0) Prothrombin Time 23.8 Sec (11.9-14.9) Prothrombin Time Ratio 1.9 INR International Normalized Ratio 2.12 Activated Partial Thromboplast Time 44.6 Sec (23.0-35.0) Sodium Level 140 mmol/L (135-144) Potassium Level 4.2 mmol/L (3.5-5.1) Chloride Level 105 mmol/L (97-110) Carbon Dioxide Level 28 mmol/L (21-31) Anion Gap 7 (5-13) Blood Urea Nitrogen 17 mg/dl (7-20) Creatinine 0.57 mg/dl (0.61-1.24) Est Glomerular Filtrat Rate mL/min > 60 mL/min (>60) Glucose Level 130 mg/dl (70-220) Calcium Level 8.9 mg/dl (8.4-10.2) Magnesium Level 2.0 mg/dl (1.7-2.5) Total Bilirubin 0.4 mg/dl (0.2-1.3) Direct Bilirubin 0.00 mg/dl (0.00-0.20) Indirect Bilirubin 0.4 mg/dl (0-1.1) Aspartate Amino Transf (AST/SGOT) 54 IU/L (15-46) Alanine Aminotransferase (ALT/SGPT) 70 IU/L (13-69) Alkaline Phosphatase 87 IU/L (42-121) Total Protein 7.0 g/dl (6.1-8.1) Albumin 3.6 g/dl (3.3-4.9) Globulin 3.40 g/dl (1.3-3.2) Albumin/Globulin Ratio 1.05 Thyroid Stimulating Hormone (TSH) 0.195 MIU/L (0.465-4.680) MARGARITA COOPER MD Mar 04, 2019 18:15
--- NOTE | 2019-03-04 18:17 | PDOCDIS ---
Discharge Instructions CONDITION [id number] Patient Condition: [id number] Stable HOME CARE INSTRUCTIONS: [id number] Diet Instructions: [id number] y Avoid heavy lifting Do not Drive FOLLOW UP/APPOINTMENTS Follow-up Plan Dr Jere Andrew 1wk PCP 1wk Urology Dr Mcdonald as needed GI Dr Ro as needed. MARGARITA COOPER MD Mar 04, 2019 18:17
[2019-03-04 20:00] VITALS: BP 106/75; PULSE 60; RESP 17
--- NOTE | 2019-03-06 09:13 | RADRPT ---
Vent Rate: 67 bpm RR Interval: 892 msec [place] Interval: 159 msec QRS Duration: 82 msec QT Interval: 404 msec QTC Interval: 428 msec P-R-T [place]: 51 - 168 - 96 degrees Sinus rhythm...normal P axis, V-rate 50- 99 Right axis deviation...QRS axis (100,269) Low voltage, precordial leads...precordial leads <1.0mV Nonspecific T abnormalities, lateral leads...T <-0.10mV, I aVL V5 V6 Electronically Signed By: Rojelio Valera
--- NOTE | 2019-03-06 09:19 | RADRPT ---
Vent Rate: 67 bpm RR Interval: 900 msec [place] Interval: 147 msec QRS Duration: 89 msec QT Interval: 404 msec QTC Interval: 426 msec P-R-T [place]: 38 - 239 - 113 degrees Sinus rhythm...normal P axis, V-rate 50- 99 Markedly posterior QRS axis...late V-lead transition Low voltage, precordial leads...precordial leads <1.0mV Consider anterior infarct...Q >30mS in V2-V5 Abnormal T, consider ischemia, lateral leads...T <-0.20mV, I aVL V5 V6 Electronically Signed By: Rojelio Valera
--- NOTE | 2019-03-06 09:21 | RADRPT ---
Vent Rate: 83 bpm RR Interval: 720 msec [place] Interval: 148 msec QRS Duration: 85 msec QT Interval: 377 msec QTC Interval: 444 msec P-R-T [place]: 37 - -6 - 69 degrees Sinus rhythm...normal P axis, V-rate 50- 99 Electronically Signed By: Rojelio Valera
== END 2019-03-04 20:35 | disposition home or self-care (01) | DRG 813 ==
LOC: E/R 23:42 → MS1 02-26 03:22 → 5EC 02-26 05:55
PROVIDERS: ADMIT Internal Medicine; ATTEND Internal Medicine
PROC: 30233K1 Transfusion of Nonautologous Frozen Plasma into Peripheral Vein, Percutaneous Approach (ICD-10-PCS; 2019-02-26)
PROC: 0D20XUZ Change Feeding Device in Upper Intestinal Tract, External Approach (ICD-10-PCS; principal; 2019-02-28 16:30)
PROC: 0DJ08ZZ Inspection of Upper Intestinal Tract, Via Natural or Artificial Opening Endoscopic (ICD-10-PCS; 2019-02-28 16:30)
DX: D68.32 Hemorrhagic disorder due to extrinsic circulating anticoagulants (principal); N30.01 Acute cystitis with hematuria; I69.320 Aphasia following cerebral infarction; Z95.2 Presence of prosthetic heart valve; T45.515A Adverse effect of anticoagulants, initial encounter; G44.209 Tension-type headache, unspecified, not intractable; E21.2 Other hyperparathyroidism; I69.991 Dysphagia following unspecified cerebrovascular disease
CPT/HCPCS: 36415; 36430; 70450; 71045; 74176; 74230; 80048; 80053; 81001; 82550; 82553; 83690; 83735; 84100; 84443; 84484; 85025; 85610; 85730; 86850; 86900; 86901; 87086; 92507; 92523; 92526; 92610; 92611; 93005; 93306; C9113; J0696; J1170; J1644; J1885; J1953; J2270; J2405; J3010; J3030; J7040; J7042; J7120; P9059